=== PATIENT | male | born 1985 | race Two or more races ===

== ENCOUNTER 2024-04-16 14:56 | Inpatient (IN) | payer MEDICAID, SELFPAY ==
[2024-04-16] VITALS (8 sets, daily range): BP systolic 154–168; BP diastolic 85–134; PULSE 111–125; RESP 18–27; TEMP 37.3–37.7; O2SAT 93–100; BMI 39.5
--- NOTE | 2024-04-16 16:04 | XR_ITS ---
Examination: PA lateral chest 2 views Technique: Upright PA lateral chest 2 views Exam date and time: 70,025 1606 hrs. Comparison January 09, 2022 Indications: Shortness breath chest pain 2 weeks ago Findings: Mild heart failure Mild enlargement cardiac contour. Prominent vascular congestion with bilateral posterior pleural effusions of fluid in the fissures on the lateral view Impression: Mild heart failure
--- NOTE | 2024-04-16 16:04 | PD.EDRME ---
Rapid Medical Screening Exam RME Arrival date/time: 04/16/24 14:56 38-year-old male presents emergency department today complaints of abdominal distention generalized fatigue and water retention Chief Complaint: Shortness of Breath/Dyspnea Vital signs: Vital Signs Temperature 99.9 F 04/16/24 15:58 Pulse Rate 118 H 04/16/24 15:58 Respiratory Rate 22 H 04/16/24 15:58 Blood Pressure 154/85 H 04/16/24 15:58 Pulse Oximetry (%) 94 L 04/16/24 15:58 Oxygen Delivery Method Room Air 04/16/24 15:58
[2024-04-16 16:35] LABS: Basophils # (Auto) 0.1 Thou/mm3 (0.0-0.2); Basophils % (Auto) 1 % (0-2.5); Eosinophils # (Auto) 0.1 Thou/mm3 (0.0-0.5); Eosinophils % (Auto) 1 % (0-10); Hemoglobin 10.8 g/dL (13.5-16.0); Immature Granulocytes % (Auto) 1 % (0-0); Immature Granulocytes Auto 0.03 Thou/mm3 (0.00-0.00); Lactate (Lactic Acid) 1.5 mMol/L (0.4-2.0); Lymphocytes # (Auto) 0.9 Thou/mm3 (1.0-4.8); Lymphocytes % (Auto) 14 % (10-50); Mean Corpuscular HGB Conc 31.8 g/dl (31.0-37.0); Mean Corpuscular Hemoglobin 27.4 pg (25.0-35.0); Mean Corpuscular Volume 86 fL (80-100); Monocytes # (Auto) 1.1 Thou/mm3 (0.0-0.8); Monocytes % (Auto) 17 % (0-12); Neutrophils # (Auto) 4.4 Thou/mm3 (1.8-7.7); Neutrophils % (Auto) 66 % (37-80); Nucleated Red Blood Cell % 0 /100 WBC (0); Platelet Count 146 Thou/mm3 (140-440); RDW Standard Deviation 53.1 fL (35.1-43.9); Red Blood Count 3.94 Miln/mm3 (4.50-5.90); White Blood Count 6.6 Thou/mm3 (3.8-10.6)
[2024-04-16 16:50] LABS: INR 1.3 (0.9-1.3); Partial Thromboplastin Time 31.5 Seconds (22.0-36.0); Prothrombin Time 13.9 Seconds (9.0-12.2)
[2024-04-16 16:55] LABS: Ammonia 15 uMol/L (11-32)
[2024-04-16 17:02] LABS: B-Type Natriuretic Peptide 541 pg/mL (0-100)
[2024-04-16 17:06] LABS: Alanine Aminotransferase 10 U/L (10-49); Albumin, Serum 3.7 gm/dL (3.5-5.0); Albumin/Globulin Ratio 0.9 (1.2-2.2); Alkaline Phosphatase 166 U/L (46-116); Anion Gap 11 (7-16); Aspartate Amino Transferase 10 U/L (0-34); BUN/Creatinine Ratio 24 Ratio (12-20); Bilirubin,Total 0.7 mg/dL (0.3-1.2); Blood Urea Nitrogen 98 mg/dL (9-23); Calcium 8.6 mg/dL (8.3-10.6); Calcium (Corrected) 8.8 mg/dL (8.5-10.1); Chloride 109 mMol/L (98-107); Creatinine (Component) 4.1 mg/dL (0.6-1.3); Globulin 3.9 gm/dL (2.3-3.5); Glucose 83 mg/dL (74-106); Lipase 35 U/L (12-53); Magnesium 2.2 mg/dL (1.6-2.6); Osmolality,Calculated 310 (275-295); Potassium 5.6 mMol/L (3.4-5.1); Procalcitonin 0.29 ng/ml (0.0-0.49); Sodium 141 mMol/L (136-145); Total Protein 7.6 gm/dL (5.7-8.2); eGFR 18 See Note
[2024-04-16 17:14] LABS: Troponin I 0.086 ng/mL (0.0-0.045)
--- NOTE | 2024-04-16 17:26 | EKG_ITS ---
[facility] Test Date: 2024-04-16 Pat Name: ALLI MONTANA Department: Room: - Gender: Male Processing Analyst: : 1985 Requested By: Rodney Bridges (SHEILA) Order Number: [id number] Reading MD: Rodney Bridges ([employer]) Measurements Intervals [place] Rate: 119 P: 250 [place]: 231 QRS: -89 QRSD: 113 T: 10 QT: 325 QTc: 458 Interpretive Statements ECTOPIC ATRIAL TACHYCARDIA WITH FIRST DEGREE AV BLOCK LEFT ATRIAL ENLARGEMENT [-0.15mV P-WAVE IN V1/V2] PATTERN CONSISTENT WITH PULMONARY DISEASE INCOMPLETE RIGHT BUNDLE BRANCH BLOCK [90+ ms QRS DURATION, TERMINAL R IN V1/V2, 40+ ms S IN I/aVL/V4/V5/V6] LEFT ANTERIOR FASCICULAR BLOCK [QRS AXIS <= -45, QR IN I, RS IN II] Compared to ECG 01/09/2022 10:08:07 First degree AV block now present Atrial abnormality now present Incomplete right bundle-branch block now present Sinus tachycardia no longer present /store/S0/[id number]/ecg/[id number].pdf
[2024-04-16 17:42] LABS: Hepatitis A Antibody IgM Non Reactive (Non React); Hepatitis B Core Antibody IgM Non Reactive (Non React); Hepatitis B Surface Antigen Non Reactive (Non React); Hepatitis C Antibody Non Reactive (Non React)
--- NOTE | 2024-04-16 18:21 | XR_ITS ---
Examination: CT abdomen and pelvis without contrast. Coronal 3-D reconstructions. Sagittal 2-D reconstructions. Date and time of exam:April 26, 2024 1832 hrs. Indications: Generalized abdominal pain shortness of breath and swelling throughout the body beginning one week ago CTDI: vol (mGy): 40.5 DLP: (mGycm): 1202 Technique: Axial images of the abdomen have been obtained, 3 mm slice thickness Intravenous contrast material has not been administered. Low dose protocols were performed. One or more of the following dose reduction techniques were used; automated exposure control, adjustment of the mA and/or KV according to patient size, use of iterative reconstruction technique. Findings: Heart failure with mild to moderate enlargement cardiac contour, prominent vascular congestion and bilateral pulmonary edema Pericardial effusion measuring up to 14 mm Cirrhosis, liver nodular in contour with significant ascites No splenomegaly Contracted gallbladder No pancreatic or adrenal mass No renal or ureteral calculi, no hydronephrosis Aorta normal size No bowel obstruction Urinary bladder intact Large fluid containing inguinal hernias Mild osteopenia with moderate disc narrowing L4-L5 Impression: Heart failure with pulmonary edema Cirrhosis Significant ascites
--- NOTE | 2024-04-16 18:21 | XR_ITS ---
Examination: Testicular sonography complete Technique: Grayscale sonographic images testes, assessment arterial inflow venous outflow Doppler spectral analysis carful analysis Exam date and time: April 26, 2024 and 0730 hrs. Indications: Scrotal swelling beginning one month ago Findings: Right testis 3.6 cm epididymis 1.6 cm Arterial flow testicle. Large hydrocele Thickening of the scrotal wall 8 mm Left testis 3.9 cm epididymis not visualized Arterial flow testicle No testicular mass Large hydrocele Scrotal wall 2 mm Impression: No testicular torsion or testicular mass Large bilateral hydroceles Scrotal wall edema and thickening bilaterally
--- NOTE | 2024-04-16 18:28 | XR_ITS ---
Examination: AP chest single view Technique one AP portable upright chest single view Exam date and time: 05/17/2024 1840 hrs. Comparison April 16, 2024 1605 hrs. Indications: Onset shortness of breath today Findings: Mild enlargement cardiac contour Moderate vascular congestion. No lobar pneumonia Impression: Moderate vascular congestion
--- NOTE | 2024-04-16 18:32 | PD.EDADULT ---
ED General RME/HPI General Chief complaint: Shortness of Breath/Dyspnea Stated complaint: SOB, SWELLING THROUGHOUT THE BODY, ABD PAIN Time Seen by Provider: 04/16/24 18:27 Arrival date/time: 04/16/24 14:56 RME / HPI RME / HPI narrative: Patient is a 38 years old male with PMH of HTN, DM and CKD presented to the emergency department today complaints of abdominal distention, generalized fatigue, SOB and water retention . He reports he went to [place] and came back Friday and his symptoms started worsening since then. He is followed by nephrology but last visit was 2 years ago. He reports significant abdominal distension. He denies drinking alcohol, smoking tobacco or using illicit drugs. He denies any fever, chills, chest pain, difficulty urinating. He reports his groing started getting swollen and is now very tender. He reports good urine output and no change recently. He had DVT in 2019 and was treated with Eliquis at that time. Related Data Home Medications ?Medication ?Instructions ?Recorded ?Confirmed bumetanide 2 mg tablet 2 mg PO BID 01/09/22 01/09/22 hydralazine 100 mg tablet 100 mg PO TID 01/09/22 01/09/22 Previous Rx's ?Medication ?Instructions ?Recorded bumetanide 2 mg tablet 2 mg PO BID #30 tabs 01/09/22 Allergies Allergy/AdvReac Type Severity Reaction Status Date / Time iron (From Venofer) Allergy Severe Weakness Verified 01/09/22 09:21 Penicillins Allergy Severe SWELLS Verified 01/09/22 09:21 UP,DYSPNEA Review of Systems Review of Systems Systems Reviewed: All systems reviewed, normal except as documented ED Exam Narrative Physical exam: Gen: Well-developed and well-nourished male. HEENT: NCAT, PERRLA, EOMI, MMM, anicteric conjunctivae. CVS: normal S1 and S2. Regular tachycardia. No M/R/G. Resp: CTA B/L. No rhonchi, rales, crackles or wheezing. Abd: soft, tender throughout, severely distended. BS+ in all 4 quadrants. : no CVA tenderness, scrotum is severely distended and erythematose, tender to palpation. MSK: Good ROM in BUE & BLE. Severe swelling BLE, consistent with anasarca. Neuro: CN II-XII grossly intact. Strength 5/5 in BUE & BLE. Alert and oriented x3. Course Quality Measures none Orders Category Date Time Status Bedside COVID-19 Antigen Test NOW Care 04/16/24 18:50 Active Bedside Influenza A&B Antigen Test NOW Care 04/16/24 18:50 Active COVID-19 Screening Questionnaire NOW Care 04/16/24 19:[address] Screening NOW Care 04/16/24 18:39 Active Decision to Admit X1 Care 04/16/24 19:07 Active EKG (ED ONLY) *Do not use* NOW Care 04/16/24 17:26 Completed Starr [Urinary Catheter] QS Care 04/16/24 18:54 Active IV [Insert IV] NOW Care 04/16/24 18:31 Active Straight [In and Out Catheter] X1 Care 04/16/24 18:50 Active Strict Intake and Output Routine Care 04/16/24 18:54 Ordered Consult to Nephrology Stat Cons 04/16/24 18:[address] abdomen pelvis wo con Stat Exams 04/16/24 18:21 Completed CXRP [XR chest 1V portable] Stat Exams 04/16/24 18:28 Completed EKG (ED Only) Stat Exams 04/16/24 17:26 Draft NM VQ scan Stat Exams 04/16/24 18:36 Stop Req US scrotum Stat Exams 04/16/24 18:21 Ordered US venous doppler LE BI Stat Exams 04/16/24 18:34 Ordered XR chest 2V Stat Exams 04/16/24 16:04 Completed ABG [Arterial Blood Gas] Stat Lab 04/16/24 19:09 Completed Ammonia Stat Lab 04/16/24 16:22 Completed B-Type Natriuretic Peptide Stat Lab 04/16/24 16:22 Completed Blood Culture (Lab) Stat Lab 04/16/24 16:22 Received CBC Stat Lab 04/16/24 16:22 Completed Comprehensive Metabolic Panel Stat Lab 04/16/24 16:22 Completed D-Dimer Stat Lab 04/16/24 16:22 Completed Drug Screen,Urine Stat Lab 04/16/24 16:04 Ordered Hepatitis Acute Panel Stat Lab 04/16/24 16:22 Completed Lactic Acid [Lactate (Lactic Acid)] Stat Lab 04/16/24 16:22 Completed Lipase Stat Lab 04/16/24 16:22 Completed Magnesium Stat Lab 04/16/24 16:22 Completed Partial Thromboplastin Time Stat Lab 04/16/24 16:22 Completed Phosphorous Stat Lab 04/16/24 19:30 Ordered Procalcitonin Stat Lab 04/16/24 16:22 Completed Prothrombin Time with INR Stat Lab 04/16/24 16:22 Completed Troponin I Stat Lab 04/16/24 16:22 Completed Urinalysis Stat Lab 04/16/24 16:04 Ordered Furosemide Inj [Lasix Inj] Med 04/16/24 18:51 Discontinued 80 mg IVP X1 ONE Morphine Inj Med 04/16/24 18:51 Discontinued 2 mg IVP X1 ONE Nitroglycerin Oint 2% [Nitro-paste Oint 2%] Med 04/16/24 18:51 Discontinued 2 inch TOP X1 ONE Vital Signs Vital signs: Vital Signs Temperature 99.9 F 04/16/24 15:58 Pulse Rate 118 H 04/16/24 15:58 Respiratory Rate 22 H 04/16/24 15:58 Blood Pressure 154/85 H 04/16/24 15:58 Pulse Oximetry (%) 94 L 04/16/24 15:58 Oxygen Delivery Method Room Air 04/16/24 15:58 Procedures -ED EKG Interpretation Sinus tachycardia with IRBBB: Date of EK04/16/24 Time of EK:28 Rate: 119 Interpretation: Reviewed by me EKG Impression: Bundle branch block and Sinus tachycardia MDM Patient data External records reviewed:: [facility] previous records Clinical information provided by:: patient and family Social determinants that could affect healthcare access:: none Patient has the following chronic illnesses:: HTN, DM and CKD How is presenting disease/condition affected by chronic disease/condition?: exacerbated by Evaluation data The following diagnostics were reviewed and interpreted by me:: lab results, radiology exam(s) and EKG tracing(s) Lab and/or radiology exams considered but not ordered:: CTA Interpretation Summary: Consistent with fluid overload status, anasarca, severe ascitis, pericardial effusion, ARF. Medications Medications considered but not ordered:: Bumex Medication administrations:: Medication Administration History Discontinued Medications Furosemide (Furosemide Inj 10 Mg/Ml 4ml Vial) 80 mg IVP X1 ONE Stop: 04/16/24 18:52 Last Admin: 04/16/24 19:29 Dose: 80 mg Documented By: EE Morphine Sulfate (Morphine Sulf Inj 10 Mg/Ml Vial) 2 mg IVP X1 ONE Stop: 04/16/24 18:52 Last Admin: 04/16/24 19:30 Dose: 2 mg Documented By: MATTHIEU Nitroglycerin (Nitroglycerin Oint 2% 1 Inch Packet) 2 inch TOP X1 ONE Stop: 04/16/24 18:52 Last Admin: 04/16/24 19:28 Dose: 2 inch Documented By: EE Nitroglycerin, morphine, lasix 80 mg. Consultations Consultation(s) initiated? (list below): Yes Consultation #1 (Physician, Specialty, Details): Dr. Teague, nephrology, ARF Diagnosis Differential Diagnosis ED Complaint MDM: ARF, cirrhosis with ascitis, SBP, SBO, PE, DVT Most likely diagnosis given after review of the tests above:: ARF, ascitis Admission Indicated Admission indicated?: indicated Explain why admission is indicated or not indicated:: Patient is severely fluid overloaded and needs to be on IV diuretics. Work up for ARF should be done. He also will benefit from paracentesis. His Wells score for PE moderate risk. Consider PE rule out. BLE Doppler and D-Dimer ordered. Admission Request Was there a request for admission?: Yes Admission Attestation Admission request attestation: Discussed case with Dr. Hatfield from Hospitalist service regarding admission. Discussed patients ED course, exam findings, labs, and radiology results. The Hospitalist agrees to accept the patient for admission. Disposition Plan Disposition Plan: Admit Medical Decision Making Differential Diagnosis Differential Diagnosis: ARF, cirrhosis with ascitis, SBP, SBO, PE, DVT Lab Data 04/16/24 16:22 04/16/24 16:22 Labs: Lab Results 04/16/24 04/16/24 Range/Units 16:22 19:09 WBC 6.6 (3.8-10.6) Thou/mm3 RBC 3.94 L (4.50-5.90) Miln/mm3 Hgb 10.8 L (13.5-16.0) g/dL Hct 34.0 L (41.0-53.0) % MCV 86 (80-100) fL MCH 27.4 (25.0-35.0) pg MCHC 31.8 (31.0-37.0) g/dl RDW Std Deviation 53.1 H (35.1-43.9) fL Plt Count 146 (140-440) Thou/mm3 Neut % (Auto) 66 (37-80) % Lymph % (Auto) 14 (10-50) % [place] % (Auto) 17 H (0-12) % Eos % (Auto) 1 (0-10) % Baso % (Auto) 1 (0-2.5) % Neut # (Auto) 4.4 (1.8-7.7) Thou/mm3 Lymph # (Auto) 0.9 L (1.0-4.8) Thou/mm3 [place] # (Auto) 1.1 H (0.0-0.8) Thou/mm3 Eos # (Auto) 0.1 (0.0-0.5) Thou/mm3 Baso # (Auto) 0.1 (0.0-0.2) Thou/mm3 Immature Gran # (Auto) 0.03 H (0.00-0.00) Thou/mm3 Absolute Nucleated RBC 0.00 (0.00-0.00) Thou/mm3 Immature Gran % 1 H (0-0) % Nucleated RBC % 0 (0) /100 WBC PT 13.9 H (9.0-12.2) Seconds INR 1.3 (0.9-1.3) APTT 31.5 (22.0-36.0) Seconds D-Dimer 2840 H (<600) ng/mL Puncture Site Right Radial ABG pH 7.32 L (7.35-7.45) ABG pCO2 39 (32.0-48.0) mmHg ABG pO2 55 L* (83-108) mmHg ABG HCO3 20 (20-26) mEq/L ABG O2 Saturation 88 L (91-98) % ABG Base Excess -6 L (-3-3) FiO2 21 % Sodium 141 (136-145) mMol/L Potassium 5.6 H (3.4-5.1) mMol/L Chloride 109 H (98-107) mMol/L Carbon Dioxide 21.0 (20.0-31.0) mMol/L Anion Gap 11 (7-16) BUN 98 H (9-23) mg/dL Creatinine 4.1 H* (0.6-1.3) mg/dL Estim Creat Clear Calc 35.0 L (>60) mL/min eGFR 18 L (60 - ) See Note BUN/Creatinine Ratio 24 H (12-20) Ratio Glucose 83 (74-106) mg/dL Calculated Osmolality 310 H (275-295) Lactic Acid 1.5 (0.4-2.0) mMol/L Calcium 8.6 (8.3-10.6) mg/dL Corrected Calcium 8.8 (8.5-10.1) mg/dL Magnesium 2.2 (1.6-2.6) mg/dL Total Bilirubin 0.7 (0.3-1.2) mg/dL AST 10 (0-34) U/L ALT 10 (10-49) U/L Alkaline Phosphatase 166 H (46-116) U/L Ammonia 15 (11-32) uMol/L Troponin I 0.086 H* (0.0-0.045) ng/mL B-Natriuretic Peptide 541 H* (0-100) pg/mL Total Protein 7.6 (5.7-8.2) gm/dL Albumin 3.7 (3.5-5.0) gm/dL Globulin 3.9 H (2.3-3.5) gm/dL Albumin/Globulin Ratio 0.9 L (1.2-2.2) Lipase 35 (12-53) U/L Procalcitonin 0.29 (0.0-0.49) ng/ml Hepatitis A IgM Ab Non Reactive (Non React) Hep Bs Antigen Non Reactive (Non React) Hep B Core IgM Ab Non Reactive (Non React) Hepatitis C Antibody Non Reactive (Non React) Discharge Plan Plan Patient Disposition: Admit Acute Care w/in Hospital Prescriptions/Referrals Prescriptions/Med Rec: No Action bumetanide 2 mg tablet 2 mg PO BID Patient Comments: TAKE 1 TABLET BY MOUTH TWICE A DAY FOR 30 DAYS hydralazine 100 mg tablet 100 mg PO TID Patient Comments: TAKE 1 TABLET BY MOUTH 3 TIMES A DAY bumetanide 2 mg tablet 2 mg PO BID Qty: 30 1RF Referrals: No Primary/Family,Physician [Primary Care Provider] - In 1 week Problem List Clinical Impression: Acute renal failure (ARF), Scrotal edema, Edema of lower extremity, Anasarca associated with disorder of kidney Patient/Caregiver Discharge Instructions Print Language: Hungarian Stand Alone Forms: [facility]rie Award Info., Patient Portal Info Letter
--- NOTE | 2024-04-16 18:34 | XR_ITS ---
Examination: Venous duplex lower extremity sonogram, bilateral. Date and time of exam: April 26, 2024 1938 hrs. Indications: Bilateral lower leg swelling beginning 3 weeks ago Technique: Multiple sonographic images of the deep venous system have been obtained. B-mode/2-D grayscale imaging of vascular structures and Doppler spectral analysis (waveforms) and color performed Both legs are examined. Findings: Deep venous systems do not demonstrate abnormal echogenicity. All visualized deep veins exhibit compressibility. All visualized deep veins exhibit augmentation. Impression: Negative for deep vein thrombosis
--- NOTE | 2024-04-16 18:40 | PC.NURSE ---
PER PT HE HAS HAD SWELLING, NORMALLY TAKES BUMEX FOR IT, HOWEVER IT HAS NOT BEEN WORKING LATELY AND HIS SWELLING IS GETTING WORSE AND HIS DOCTOR TOLD HIM TO COME TO THE ED. ABDOMEN IS EXTENDED, PT TO CT AT THIS TIME, FAMILY AT BEDSIDE ATTENTIVE TO PT, WILL CONTINUE W/POC
[2024-04-16 19:17] LABS: Base Excess -6 (-3-3); HCO3 20 mEq/L (20-26); Inspired Oxygen, FIO2 21 %; O2 Saturation 88 % (91-98); PCO2 39 mmHg (32.0-48.0); pH, Arterial 7.32 (7.35-7.45)
[2024-04-16 19:19] LABS: Allen Test Performed/OK; PO2 55 mmHg (83-108); Puncture Site Right Radial
[2024-04-16 19:23] LABS: D-Dimer 2840 ng/mL (<600)
[2024-04-16] MEDS: NITROGLYCERIN OINT 2% 1 INCH PACKET 2 INCH TOP (19:28)
[2024-04-16] MEDS: FUROSEMIDE INJ 10 MG/ML 4ML VIAL 80 MG IVP (19:29)
[2024-04-16] MEDS: MORPHINE SULF INJ 10 MG/ML VIAL 2 MG IVP (19:30)
[2024-04-16] MEDS: INSULIN HUM REGULAR 1 UNIT/0.01 ML (PER UNIT) 5 UNIT IV (21:41)
[2024-04-16] MEDS: DEXTROSE 50%-WATER INJ 50 ML SYRINGE IV (21:41)
[2024-04-16] MEDS: ALBUTEROL/IPRATROPIUM (Duoneb) RT SOL 3 ML NEBU INH (21:52)
[2024-04-16] MEDS: ALBUMIN HUMAN 25% IVPB 25 GM/100 ML BTL IV (22:17)
[2024-04-16 22:23] LABS: Collection Type, Urine Clean Catch; Squamous Epithelial Cell,Urine 0 /hpf (0-5)
[2024-04-16 22:47] LABS: Bilirubin,Urine Negative (Negative); Blood,Urine Negative (Negative); Clarity,Urine Clear (Clear/Hazy); Color,Urine Lt-Yellow (Lt Yel-Yel); Glucose, Urine Negative (Negative); Hyaline Casts,Urine < 1 /hpf (0-1); Ketones,Urine Negative (Negative); Leukocyte Esterase,Urine Negative (Negative); Nitrite,Urine Negative (Negative); Protein,Urine 1+ (Neg - Trace); RBC,Urine 3 /hpf (0-3); Specific Gravity,Urine 1.011 (1.001-1.035); Urobilinogen,Urine Negative mg/dL (0.0-1.0); WBC,Urine 3 /hpf (0-5)
[2024-04-16 22:49] LABS: Albumin, Serum 3.6 gm/dL (3.5-5.0); Anion Gap 9 (7-16); BUN/Creatinine Ratio 24 Ratio (12-20); Blood Urea Nitrogen 100 mg/dL (9-23); Calcium 8.4 mg/dL (8.3-10.6); Calcium (Corrected) 8.7 mg/dL (8.5-10.1); Carbon Dioxide 21.9 mMol/L (20.0-31.0); Chloride 110 mMol/L (98-107); Creatine Kinase 49 U/L (34-171); Creatinine (Component) 4.2 mg/dL (0.6-1.3); Estimated Creatinine Clearance 34.2 mL/min (>60); Glucose 91 mg/dL (74-106); Osmolality,Calculated 312 (275-295); Phosphorous 5.2 mg/dL (2.4-5.1); Potassium 5.1 mMol/L (3.4-5.1); Sodium 141 mMol/L (136-145); eGFR 18 See Note
[2024-04-16 22:53] LABS: Amphetamine/Methamp Scrn,U Negative (Negative); Barbiturate Screen,Urine Negative (Negative); Benzodiazepines Screen,Urine Negative (Negative); Benzoylecgonine Screen, Ur Negative (Negative); Fentanyl Screen,Urine Negative (Negative); Opiate Screen,Urine Negative (Negative); THC Screen,Urine Negative (Negative)
[2024-04-16 22:53] LABS: Creatinine,Random Urine 64 mg/dL (30-125); Potassium,Urine Random 28 mMol/L (12-62); Sodium,Urine Random 75.8 mMol/L (20.0-110.0)
[2024-04-17] VITALS (13 sets, daily range): BP systolic 116–170; BP diastolic 79–91; PULSE 99–126; RESP 17–92; TEMP 36.3–37.4; O2SAT 92–100; BMI 38.8
[2024-04-17] MEDS: HYDROcodone/APAP 5/325 TABLET 1 TAB PO (00:10)
--- NOTE | 2024-04-17 01:15 | PD.RESHP ---
Documentation for date of: 04/17/24 HPI History of Present Illness History of present illness: Barry is a 38 y/o male with PMHx of Nephrotic syndrome, DVT (Was on Eliquis in 2019), HTN, and morbid obesity who comes for an evaluation of worsening of the scrotum and LE bilat, onset on 04/05. Pt reports that he has had these symptoms before and has been hospitalized for this before about 7 years ago in which he had a lot of fluid build up in his body. He reports that he recently came from a trip on [place] in which she left on April 05 and came back this past Friday on April 11. He says that while he was in [place] he was pretty liberal with his diet, was not drinking a lot fluid, was not drinking any alcohol, however noticed that his swelling began to worsen. Upon coming back home he went to see his primary care on Friday and he was told to go to the ER for further evaluation however he did not because he want to go to work. He says over the past couple of days has been experiencing pain in his legs and scrotum and that is why he came. Denies having any other symptoms of chest pain, however says that he gets short of breath while laying down. He does say he has a headache at this time. He says that he has had the symptoms before. He does not see a kidney doctor, and has been in and out of a primary care doctor. He does not take a blood thinner at this time. Denies having history of diabetes. He has no other complaints at this time. ED course: Patient arrived to the ED with a blood pressure of 164/124, heart rate of 122, temperature of 99.2, respiratory of 27, saturating 97% room air. He was worked up and was found to have a sodium of 141, potassium 5.6, bicarb 21, BUN/creatinine of 98 and 4.1 respectively, glucose 83, white count 6.6, hemoglobin 10.8, troponin 0.062, BNP of 541, Pro-Keen[place] 0.29, ABG pH 7.32, pCO2 39, bicarb 20, D-dimer 2840, lipase 35. CT abdomen pelvis was done which showed cirrhosis, significant ascites and heart failure with edema. He was given nitroglycerin patch, morphine 2 mg x 1, Lasix 80 mg x 1. Medicine was consulted and patient was made to floors. Past medical history: As above Surgical history: None surgeries Meds: Hydralazine, Bumex 2 mg twice daily Allergies: Iron (get swelling and short of breath) and penicillins (weakness) Family history: Family history positive for diabetes, no family history of stroke or kidney disease. Some family history positive for coronary artery disease. Social history: Born and raised in [place]. 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 Has 2 kids, was previously. Has never been a heavy drinker, currently does not drink, no smoking history, no oral or IV drug history. Eats a lot of fast food if his mom does not cook Review of Systems Review of Systems Narrative Review of Systems: Constitutional: No fever, chills, fatigue, weakness, weight loss HEENT: No eye pain, vision loss, ear pain, hearing loss, dysphagia, Cardiovascular: No chest pain, palpitations, edema, pain with walking Respiratory: No cough, shortness of breath, wheezing GI: No NVD, abdominal pain, constipation, blood in stool, loss of appetite, heartburn : + Scrotal swelling Extremities: + leg swelling MSK: No back pain, joint pain, joint swelling Neuro: No dizziness, numbness, weakness, headaches, seizures, tremors Psych: No anxiety, depression Exam Vital Signs Temp Pulse Resp BP Pulse Ox O2 Del Method 99.4 F 111 H 20 160/97 H 99 Room Air 04/16/24 22:18 04/16/24 22:54 04/16/24 22:18 04/16/24 22:18 04/16/24 22:18 04/16/24 22:18 Narrative Exam General: AAOx3, in mild distress, lying down, morbidly obese HEENT: Dry mucous membranes, conjunctiva clear, EOMI, PERRLA, Cardiovascular: S1 and S2, radial pulses +2 bilat, RRR Pulmonary: Difficulty appreciating breath sounds due to body habitus, no cough, no wheezing GI: Ascites present, fluid shift, umbilical hernia present, bowel sounds absent, significant distension Extremities: +3 pitting edema bilat, dorsalis pedis pulses +2 bilaterally : Scrotal erythema, significant scrotal swelling, penile shaft not visible Neuro: AAOx3, no focal motor or sensory deficits in the UE or LE bilat Psych: Good judgement, thought and behavior. Cooperative Results: Labs 04/16/24 16:22 04/16/24 22:22 Labs: Short CBC 04/16/24 Range/Units 16:22 WBC 6.6 (3.8-10.6) Thou/mm3 Hgb 10.8 L (13.5-16.0) g/dL Hct 34.0 L (41.0-53.0) % Plt Count 146 (140-440) Thou/mm3 BMP 04/16/24 04/16/24 16:22 22:22 Sodium 141 141 Potassium 5.6 H 5.1 D Chloride 109 H 110 H Carbon Dioxide 21.0 21.9 BUN 98 H 100 H Creatinine 4.1 H* 4.2 H* Glucose 83 91 Calcium 8.6 8.4 Cardiac Enzymes 04/16/24 04/16/24 Range/Units 16:22 22:22 Total Creatine Kinase 49 (34-171) U/L Troponin I 0.086 H* (0.0-0.045) ng/mL Liver Function 04/16/24 04/16/24 Range/Units 16:22 22:22 Total Bilirubin 0.7 (0.3-1.2) mg/dL AST 10 (0-34) U/L ALT 10 (10-49) U/L Alkaline Phosphatase 166 H (46-116) U/L Albumin 3.7 3.6 (3.5-5.0) gm/dL Urine 04/16/24 Range/Units 21:54 Urine Color Lt-Yellow (Lt Yel-Yel) Urine Clarity Clear (Clear/Hazy) Urine pH 6.0 (5.0-7.0) Ur Specific [place] 1.011 (1.001-1.035) Urine Protein 1+ A (Neg - Trace) Urine Glucose (UA) Negative (Negative) ABG Interpretation ABG results: 04/16/24 19:09 ABG pH 7.32 L ABG pCO2 39 ABG pO2 55 L* ABG HCO3 20 ABG O2 Saturation 88 L ABG Base Excess -6 L Quality Measures Quality Measures none Medications Home Medications and Allergies Home Medications ?Medication ?Instructions ?Recorded ?Confirmed ?Type bumetanide 2 mg tablet 2 mg PO BID 01/09/22 04/17/24 History hydralazine 100 mg tablet 100 mg PO TID 01/09/22 04/17/24 History Allergies Allergy/AdvReac Type Severity Reaction Status Date / Time iron (From Venofer) Allergy Severe Weakness Verified 01/09/22 09:21 Penicillins Allergy Severe SWELLS Verified 01/09/22 09:21 UP,DYSPNEA Visit Medications Acetaminophen (Acetaminophen 325 Mg Tablet) 650 mg PO Q6H PRN PRN Reason: Fever >100 or pain 1-3 Stop: 05/16/24 21:29 Hydrocodone Bitart/Acetaminophen (Hydrocodone/Apap 5/325 Tablet) 1 tab PO Q4HR PRN PRN Reason: Pain 4-6 Stop: 04/22/24 00:00 Last Admin: 04/17/24 00:10 Dose: 1 tab Albuterol/Ipratropium (Albuterol/Ipratropium (Duoneb) Rt Carol 3 Ml Nebu) 3 ml INH Q6HRRT PRN PRN Reason: sob Stop: 05/17/24 00:59 Dextrose (Dextrose 50%-Water Inj 50 Ml Syringe) 25 ml IV Q15MIN PRN PRN Reason: BG 50-70 responsive npo pt Stop: 05/16/24 20:02 Dextrose (Dextrose 50%-Water Inj 50 Ml Syringe) 50 ml IV Q15MIN PRN PRN Reason: BG <50 OR BG <70 & pt unresponsive Stop: 05/16/24 20:02 Glucagon (Glucagon Inj 1 Mg Vial) 1 mg IM Q15MIN PRN PRN Reason: BG <70, and no IV access Heparin Sodium (Porcine) (Heparin Sod Inj 5000 Unit/Ml Vial) 5,000 unit SC Q12HR [facility] Stop: 05/01/24 08:59 Albumin Human (Albuminar-25 Ivpb) 25 gm in 100 mls @ 100 mls/hr IV QID [facility] Stop: 04/19/24 21:44 Last Admin: 04/16/24 22:17 Dose: 100 mls/hr Ondansetron HCl (Ondansetron Inj 2 Mg/Ml Inj 2 Ml) 4 mg IV Q6H PRN; Protocol PRN Reason: NAUSEA OR VOMITING Stop: 05/16/24 21:29 Pantoprazole Sodium (Pantoprazole 40 Mg Tablet) 40 mg PO QDAY [facility] Stop: 05/17/24 08:59 Discontinued Medications Albuterol/Ipratropium (Albuterol/Ipratropium (Duoneb) Rt Carol 3 Ml Nebu) 3 ml INH X1 ONE Stop: 04/16/24 21:30 Last Admin: 04/16/24 21:52 Dose: 3 ml Dextrose (Dextrose 50%-Water Inj 50 Ml Syringe) 50 ml IV X1 ONE Stop: 04/16/24 21:30 Last Admin: 04/16/24 21:41 Dose: 50 ml Furosemide (Furosemide Inj 10 Mg/Ml 4ml Vial) 80 mg IVP X1 ONE Stop: 04/16/24 18:52 Last Admin: 04/16/24 19:29 Dose: 80 mg Dextrose (D10w 1000 Ml) 1,000 mls @ 100 mls/hr IV .Q10H [place] Stop: 04/17/24 06:14 Last Admin: 04/16/24 21:34 Dose: Not Given Insulin Human Regular (Insulin Hum Regular 1 Unit/0.01 Ml (Per Unit)) 5 unit IV X1 ONE Stop: 04/16/24 20:04 Last Admin: 04/16/24 21:41 Dose: 5 unit Morphine Sulfate (Morphine Sulf Inj 10 Mg/Ml Vial) 2 mg IVP X1 ONE Stop: 04/16/24 18:52 Last Admin: 04/16/24 19:30 Dose: 2 mg Nitroglycerin (Nitroglycerin Oint 2% 1 Inch Packet) 2 inch TOP X1 ONE Stop: 04/16/24 18:52 Last Admin: 04/16/24 19:28 Dose: 2 inch Assessment & Plan Plan Assessment Barry is a 38 y/o male with PMHx of Nephrotic syndrome, DVT (Was on Eliquis in 2019), HTN, and morbid obesity who is admitted for acute renal failure. #Acute renal failure #History of nephrotic syndrome Patient's creatinine seems to be 1.4 on baseline, however creatinine today 4.1 Patient has been having poor oral intake Could be a component of possible hepatorenal syndrome type I Will need to see if patient is intravascularly depleted with extracellular shifting We will do this with albumin to see if patient responds; albumin unremarkable at this time Was given 80 mg Lasix in ED Pt appears to be intravascularly dry Plan: ? Nephrology consulted, appreciate recs ? Urine lytes and creatinine ? Avoid nephrotoxic agents ? Renally dose medicines ? Albumin 25 g 4 times daily IV ? Trend electrolytes including magnesium and phosphorus ? Strict I's and O's ? Starr #Ascites #? Cirrhosis #Hydrocele, bilat Patient is significantly distended With no previous imaging of cirrhosis CT abdomen pelvis showed cirrhosis on liver There could be component of POWER contributing to cirrhosis at this time This could be also decompensated liver failure causing ascites No history of portal hypertension Hepatitis Panel negative Albumin level is unremarkable US shows bilat hydrocele Plan: ? Consider ultrasound-guided paracentesis ? Consider GI consult ? Continue with albumin 25 g 4 times daily IV #Electrolyte abnormalities #Hyperkalemia Patient appears to be intravascularly depleted, however patient is having extracellular shift and has ascites and significant lower extremity edema Patient has multiple reasons to have ascites and lower extremity edema including nephrotic syndrome and possible cirrhosis Osmolarity 312 Plan: ? Monitor with CMP ? 5 units of insulin, recheck potassium ? DuoNeb x 1 #History of DVT Not on any blood thinners at this time D-dimer around 3000 DVT lower extremity negative #History of pericardial effusion Seen on echo in [address] imaging shows 14 mm pericardial effusion Plan: ? Consider echo #History of hypertension #? CHF #History of morbid obesity Imaging shows heart failure with pulmonary edema Plan: ? Avoiding resuming any ACEs or ARB's ? Consider echo #Health Maintenance Disposition: Telemetry DVT prophylaxis: Heparin GI prophylaxis: Protonix Diet: Renal CODE STATUS: Full Patient seen and care discussed with my attending physician, Dr. Aureliano Hatfield, PGY-1 Attending Provider Attestation/Addendum 38-year-old male with previous diagnosis of hypertension, nephrotic syndrome and DVT status post Eliquis treatment and nonalcoholic metabolic liver dysfunction who presented with generalized weakness found to have acute kidney injury with initial creatinine of 4.1. Patient has been having decreased p.o. intake and likely worsening kidney function could be prerenal. In the ER he was given Lasix 80 mg IV and plan to give albumin. Consulted nephrology and recommended admission. Patient does not have any indication for emergent hemodialysis and will monitor closely. Furthermore, CT noted possible pulmonary edema however likely related to fluid overload state from his kidney injury and also noted 14 mm pericardial effusion for which plan is to obtain an echocardiogram.I reviewed above note and agree with findings and plans. I have also personally examined the patient with medicine team and went over assessment and plan with medical team including administrative intern and resident physician.
[2024-04-17] MEDS: ALBUMIN HUMAN 25% IVPB 25 GM/100 ML BTL IV ×5 (05:23→20:58)
[2024-04-17 05:50] LABS: Basophils % (Auto) 0 % (0-2.5); Eosinophils % (Auto) 1 % (0-10); Hematocrit 30.6 % (41.0-53.0); Hemoglobin 9.7 g/dL (13.5-16.0); Immature Granulocytes % (Auto) 0 % (0-0); Immature Granulocytes Auto 0.02 Thou/mm3 (0.00-0.00); Lymphocytes # (Auto) 0.7 Thou/mm3 (1.0-4.8); Lymphocytes % (Auto) 12 % (10-50); Mean Corpuscular HGB Conc 31.7 g/dl (31.0-37.0); Mean Corpuscular Hemoglobin 27.5 pg (25.0-35.0); Mean Corpuscular Volume 87 fL (80-100); Monocytes % (Auto) 17 % (0-12); Neutrophils # (Auto) 3.8 Thou/mm3 (1.8-7.7); Neutrophils % (Auto) 70 % (37-80); Nucleated Red Blood Cell % 0 /100 WBC (0); Platelet Count 116 Thou/mm3 (140-440); RDW Standard Deviation 52.4 fL (35.1-43.9); Red Blood Count 3.53 Miln/mm3 (4.50-5.90); White Blood Count 5.5 Thou/mm3 (3.8-10.6)
[2024-04-17 06:03] LABS: INR 1.3 (0.9-1.3); Partial Thromboplastin Time 31.9 Seconds (22.0-36.0); Prothrombin Time 13.7 Seconds (9.0-12.2)
[2024-04-17] MEDS: FUROSEMIDE INJ 10 MG/ML 4ML VIAL 80 MG IVP (06:20)
[2024-04-17 06:56] LABS: Alanine Aminotransferase < 7 U/L (10-49); Albumin, Serum 3.6 gm/dL (3.5-5.0); Albumin/Globulin Ratio 1.1 (1.2-2.2); Alkaline Phosphatase 144 U/L (46-116); Anion Gap 8 (7-16); Aspartate Amino Transferase 21 U/L (0-34); BUN/Creatinine Ratio 24 Ratio (12-20); Bilirubin,Total 0.5 mg/dL (0.3-1.2); Calcium 8.4 mg/dL (8.3-10.6); Calcium (Corrected) 8.7 mg/dL (8.5-10.1); Carbon Dioxide 22.2 mMol/L (20.0-31.0); Cardiac Risk Estimate 4.1 RATIO (4.0-6.7); Chloride 110 mMol/L (98-107); Cholesterol 106 mg/dL (132-200); Creatinine (Component) 4.3 mg/dL (0.6-1.3); Estimated Creatinine Clearance 33.1 mL/min (>60); Globulin 3.4 gm/dL (2.3-3.5); Glucose 78 mg/dL (74-106); HDL Cholesterol 26 mg/dL (40-60); LDL Cholesterol,Calculated 62 mg/dL (0-130); Magnesium 2.2 mg/dL (1.6-2.6); Osmolality,Calculated 310 (275-295); Phosphorous 6.1 mg/dL (2.4-5.1); Potassium 5.4 mMol/L (3.4-5.1); Sodium 140 mMol/L (136-145); Thyroid Stimulating Hormone 3.96 uIU/mL (0.55-4.78); Triglycerides 89 mg/dL (30-150); eGFR 17 See Note
[2024-04-17 07:01] LABS: Blood Urea Nitrogen 102 mg/dL (9-23)
[2024-04-17 07:03] LABS: Troponin I 0.093 ng/mL (0.0-0.045)
[2024-04-17] MEDS: ALBUTEROL/IPRATROPIUM (Duoneb) RT SOL 3 ML NEBU INH ×2 (08:38→16:22)
[2024-04-17] MEDS: SEVELAMER CARBONATE 800 MG TABLET PO ×3 (08:41→17:35)
[2024-04-17] MEDS: ONDANSETRON INJ 2 MG/ML INJ 2 ML 4 MG IV (08:41)
[2024-04-17] MEDS: PANTOPRAZOLE 40 MG TABLET PO (08:41)
[2024-04-17] MEDS: CIPROFLOXACIN/D5w 400 MG IVPB 400 MG/200 ML BAG 200 MG IV (08:41)
[2024-04-17 09:28] LABS: LDH (Lactate Dehydrogenase) 132 U/L (120-246); Potassium 5.2 mMol/L (3.4-5.1)
[2024-04-17 10:27] LABS: Creatinine,Random Urine 148 mg/dL (30-125); Sodium,Urine Random 46.8 mMol/L (20.0-110.0)
[2024-04-17] MEDS: OSELTAMIVIR 75 MG CAPSULE PO (11:41)
--- NOTE | 2024-04-17 15:31 | ESPR_ITS ---
Documentation for date of: 04/17/24 Subjective Subjective Interval history: Patient was seen and examined at the bedside. This morning patient reported that he has been having lower extremity swelling and abdominal discomfort along with distention of the abdomen with scrotal swelling as well from last 3 months. He was diagnosed with nephrotic syndrome x 7 years ago and he lost follow-up with production tool engineer, Dr Teague 3 years ago. Patient's mother was also present at the bedside. He stated that he is still able to pee and make urine however has difficulty in passing bowel movements from last couple of days. He was also having abdominal discomfort. He also was complaining of lower extremity tenderness. Morning vitals showed elevated blood pressure, tachycardia and tachypnea. Patient was afebrile and saturating well on 3 L NC. Labs showed stable white count and hemoglobin 9.7. Thrombocytopenia. CHEM panel showed hypokalemia and breathing treatment was given x 2. Azotemia with BUN 102 and creatinine 4.3 with GFR 17. Phosphorus 6.1. Troponin I was elevated 0.093. Your electrolytes showed normal electrolytes. Urine random creatinine was 148. ICU team was consulted for paracentesis and they removed 11 L. Patient was given 50 g of albumin post paracentesis. Patient received 25 g in the morning. Will continue additional 25 g for the night. Patient also received Lasix 80 mg in the morning and evening dose of Lasix was held due to concern for hypotension. Patient is allergic to penicillin therefore was switched to p.o. ciprofloxacin. Strict SUKH's, fluid restriction and nephrology will follow the case. If patient became hypotensive consider adding midodrine or octreotide. Will follow with the blood cultures. Scrotal ultrasound showed bilateral hydroceles. Sevelamer was given for hyperphosphatemia. Hypoglycemia protocol for low blood sugars. Will repeat a troponin I for morning. All labs and orders were reviewed. Exam Vital Signs Temp Pulse Resp BP Pulse Ox O2 Del Method O2 Flow Rate 97.4 F 111 H 25 H 132/79 H 99 Nasal Cannula 3 04/17/24 12:00 04/17/24 12:00 04/17/24 12:00 04/17/24 12:00 04/17/24 12:00 04/17/24 12:00 04/17/24 12:00 Narrative Exam GENERAL APPEARANCE: AxOx4, obese male in mild distress due to breathing difficulty. Saturating well on 3 L NC. HEENT: NC, AT. MMM. EOMI, clear conjunctiva, oropharynx clear. NECK: Supple without lymphadenopathy. No stiffness or restricted ROM. HEART: Sinus tachycardia with regular rhythm, normal S1/S2, no m/r/g LUNGS: CTAB, moving air well. Mild wheezing heard on right side. Decreased breath sounds on left side. ABDOMEN: Soft, markedly distended with fluid thrill and increased abdominal girth. Shifting dullness positive. BACK: No CVAT, no obvious deformity. EXTREMITIES: Anasarca with 3+ pitting edema up to thighs NEUROLOGICAL: Grossly nonfocal. Alert and oriented, moving all 4 extremities. CN not formally tested but appear grossly intact. Observed to ambulate with normal gait. exam: Scrotal swelling seen. Skin: Chronic venous stasis Psych: Appropriate mood and affect Objective Labs 04/18/24 05:44 04/18/24 05:44 Labs: Laboratory Results - last 24 hr 04/16/24 04/16/24 04/16/24 16:22 19:09 21:50 WBC 6.6 RBC 3.94 L Hgb 10.8 L Hct 34.0 L MCV 86 MCH 27.4 MCHC 31.8 RDW Std Deviation 53.1 H Plt Count 146 Neut % (Auto) 66 Lymph % (Auto) 14 [place] % (Auto) 17 H Eos % (Auto) 1 Baso % (Auto) 1 Neut # (Auto) 4.4 Lymph # (Auto) 0.9 L [place] # (Auto) 1.1 H Eos # (Auto) 0.1 Baso # (Auto) 0.1 Immature Gran # (Auto) 0.03 H Absolute Nucleated RBC 0.00 Immature Gran % 1 H Nucleated RBC % 0 PT 13.9 H INR 1.3 APTT 31.5 D-Dimer 2840 H Puncture Site Right Radial ABG pH 7.32 L ABG pCO2 39 ABG pO2 55 L* ABG HCO3 20 ABG O2 Saturation 88 L ABG Base Excess -6 L FiO2 21 Sodium 141 Potassium 5.6 H Chloride 109 H Carbon Dioxide 21.0 Anion Gap 11 BUN 98 H Creatinine 4.1 H* Estim Creat Clear Calc 35.0 L eGFR 18 L BUN/Creatinine Ratio [address] Glucose [address] Glu mg/dL Hemoglobin A1c Calculated Osmolality 310 H Lactic Acid 1.5 Calcium 8.6 Corrected Calcium 8.8 Phosphorus Magnesium 2.2 Total Bilirubin 0.7 AST 10 ALT 10 Alkaline Phosphatase 166 H Ammonia 15 Lactate Dehydrogenase Total Creatine Kinase Troponin I 0.086 H* B-Natriuretic Peptide 541 H* Total Protein 7.6 Albumin 3.7 Globulin 3.9 H Albumin/Globulin Ratio 0.9 L Triglycerides Cholesterol LDL Cholesterol, Calc HDL Cholesterol Cholesterol/HDL Ratio Lipase 35 Procalcitonin 0.29 TSH Ur Collection Type Urine Color Urine Clarity Urine pH Ur Specific [place] Urine Protein Urine Glucose (UA) Urine Ketones Urine Blood Urine Nitrite Urine Bilirubin Urine Urobilinogen (Auto) Ur Leukocyte Esterase Urine RBC Urine WBC Ur Squamous Epith Cells Urine Bacteria Hyaline Casts Ur Random Creatinine Ur Random Sodium Ur Random Potassium Ur Random Chloride Urine Opiates Screen Negative Urine Fentanyl Screen Negative Ur Barbiturates Screen Negative U Amphetamin/Meth Scrn Negative U Benzodiazepines Scrn Negative U Cocaine Metab Screen Negative U Marijuana (THC) Screen Negative Hepatitis A IgM Ab Non Reactive Hep Bs Antigen Non Reactive Hep B Core IgM Ab Non Reactive Hepatitis C Antibody Non Reactive 04/16/24 04/16/24 04/17/24 21:54 22:22 04:51 WBC 5.5 RBC 3.53 L Hgb 9.7 L Hct 30.6 L MCV 87 MCH 27.5 MCHC 31.7 RDW Std Deviation 52.4 H Plt Count 116 L D Neut % (Auto) 70 Lymph % (Auto) 12 [place] % (Auto) 17 H Eos % (Auto) 1 Baso % (Auto) 0 Neut # (Auto) 3.8 Lymph # (Auto) 0.7 L [place] # (Auto) 1.0 H Eos # (Auto) 0.0 Baso # (Auto) 0.0 Immature Gran # (Auto) 0.02 H Absolute Nucleated RBC 0.00 Immature Gran % 0 Nucleated RBC % 0 PT 13.7 H INR 1.3 APTT 31.9 D-Dimer Puncture Site ABG pH ABG pCO2 ABG pO2 ABG HCO3 ABG O2 Saturation ABG Base Excess FiO2 Sodium 141 140 Potassium 5.1 D 5.4 H Chloride 110 H 110 H Carbon Dioxide 21.9 22.2 Anion Gap 9 8 BUN 100 H 102 H* Creatinine 4.2 H* 4.3 H* Estim Creat Clear Calc 34.2 L 33.1 L eGFR 18 L 17 L BUN/Creatinine Ratio 24 H 24 H Glucose [address] Glu mg/dL Cancelled Hemoglobin A1c Cancelled Calculated Osmolality 312 H 310 H Lactic Acid Calcium 8.4 8.4 Corrected Calcium 8.7 8.7 Phosphorus 5.2 H 6.1 H Magnesium 2.2 Total Bilirubin 0.5 AST 21 ALT < 7 L Alkaline Phosphatase 144 H D Ammonia Lactate Dehydrogenase Total Creatine Kinase 49 Troponin I 0.093 H* B-Natriuretic Peptide Total Protein 7.0 Albumin 3.6 3.6 Globulin 3.4 Albumin/Globulin Ratio 1.1 L Triglycerides 89 Cholesterol 106 L LDL Cholesterol, Calc 62 HDL Cholesterol 26 L Cholesterol/HDL Ratio 4.1 Lipase Procalcitonin TSH 3.96 Ur Collection Type Clean Catch Urine Color Lt-Yellow Urine Clarity Clear Urine pH 6.0 Ur Specific [place] 1.011 Urine Protein 1+ A Urine Glucose (UA) Negative Urine Ketones Negative Urine Blood Negative Urine Nitrite Negative Urine Bilirubin Negative Urine Urobilinogen (Auto) Negative Ur Leukocyte Esterase Negative Urine RBC 3 Urine WBC 3 Ur Squamous Epith Cells 0 Urine Bacteria None Hyaline Casts < 1 Ur Random Creatinine 64 Ur Random Sodium 75.8 Ur Random Potassium 28 Ur Random Chloride 81.0 Urine Opiates Screen Urine Fentanyl Screen Ur Barbiturates Screen U Amphetamin/Meth Scrn U Benzodiazepines Scrn U Cocaine Metab Screen U Marijuana (THC) Screen Hepatitis A IgM Ab Hep Bs Antigen Hep B Core IgM Ab Hepatitis C Antibody 04/17/24 04/17/24 08:45 08:52 WBC RBC Hgb Hct MCV MCH MCHC RDW Std Deviation Plt Count Neut % (Auto) Lymph % (Auto) [place] % (Auto) Eos % (Auto) Baso % (Auto) Neut # (Auto) Lymph # (Auto) [place] # (Auto) Eos # (Auto) Baso # (Auto) Immature Gran # (Auto) Absolute Nucleated RBC Immature Gran % Nucleated RBC % PT INR APTT D-Dimer Puncture Site ABG pH ABG pCO2 ABG pO2 ABG HCO3 ABG O2 Saturation ABG Base Excess FiO2 Sodium Potassium 5.2 H Chloride Carbon Dioxide Anion Gap BUN Creatinine Estim Creat Clear Calc eGFR BUN/Creatinine Ratio Glucose Estimated Ave Glu mg/dL Hemoglobin A1c Calculated Osmolality Lactic Acid Calcium Corrected Calcium Phosphorus Magnesium Total Bilirubin AST ALT Alkaline Phosphatase Ammonia Lactate Dehydrogenase 132 Total Creatine Kinase Troponin I B-Natriuretic Peptide Total Protein Albumin Globulin Albumin/Globulin Ratio Triglycerides Cholesterol LDL Cholesterol, Calc HDL Cholesterol Cholesterol/HDL Ratio Lipase Procalcitonin TSH Ur Collection Type Urine Color Urine Clarity Urine pH Ur Specific [place] Urine Protein Urine Glucose (UA) Urine Ketones Urine Blood Urine Nitrite Urine Bilirubin Urine Urobilinogen (Auto) Ur Leukocyte Esterase Urine RBC Urine WBC Ur Squamous Epith Cells Urine Bacteria Hyaline Casts Ur Random Creatinine 148 H Ur Random Sodium 46.8 Ur Random Potassium Ur Random Chloride Urine Opiates Screen Urine Fentanyl Screen Ur Barbiturates Screen U Amphetamin/Meth Scrn U Benzodiazepines Scrn U Cocaine Metab Screen U Marijuana (THC) Screen Hepatitis A IgM Ab Hep Bs Antigen Hep B Core IgM Ab Hepatitis C Antibody ABG Interpretation ABG results: 04/16/24 19:09 ABG pH 7.32 L ABG pCO2 39 ABG pO2 55 L* ABG HCO3 20 ABG O2 Saturation 88 L ABG Base Excess -6 L Quality Measures Quality Measures VTE prophylaxis (Heparin on hold) Assessment & Plan Assessment Current Active Medications: Generic Name Dose Route Start Last Admin Trade Name Freq PRN Reason Stop Dose Admin Acetaminophen 650 mg 04/16/24 21:30 Acetaminophen 325 Mg Tablet PO 05/16/24 21:29 Q6H PRN Fever >100 or pain 1-3 Hydrocodone Bitart/Acetaminophen 1 tab 04/17/24 00:00 04/17/24 00:10 Hydrocodone/Apap 5/325 Tablet PO 04/22/24 00:00 1 tab Q4HR PRN Administration Pain 4-6 Albuterol/Ipratropium 3 ml 04/16/24 21:30 Albuterol/Ipratropium (Duoneb) Rt Carol 3 Ml Nebu INH 05/17/24 00:59 Q6HRRT PRN sob Ciprofloxacin 500 mg 04/18/24 09:00 Ciprofloxacin Hcl 250 Mg Tablet PO 04/25/24 08:59 QDAY [place] Dextrose 25 ml 04/17/24 07:57 Dextrose 50%-Water Inj 50 Ml Syringe IV 05/17/24 07:56 Q15MIN PRN BG 50-70 responsive npo pt Dextrose 50 ml 04/17/24 07:57 Dextrose 50%-Water Inj 50 Ml Syringe IV 05/17/24 07:56 Q15MIN PRN BG <50 OR BG <70 & pt unresponsive Furosemide 80 mg 04/17/24 06:00 04/17/24 06:20 Furosemide Inj 10 Mg/Ml 4ml Vial IVP 05/17/24 05:59 80 mg BIDD [place] Administration Glucagon 1 mg 04/17/24 07:57 Glucagon Inj 1 Mg Vial IM Q15MIN PRN BG <70, and no IV access Heparin Sodium (Porcine) 5,000 unit 04/17/24 09:00 Heparin Sod Inj 5000 Unit/Ml Vial SC 05/01/24 08:59 Q12HR [place] Albumin Human 25 gm in 100 mls @ 100 mls/hr 04/16/24 21:45 04/17/24 13:55 Albuminar-25 Ivpb IV 04/19/24 21:44 Infused QID [place] Infusion Ondansetron HCl 4 mg 04/16/24 21:30 04/17/24 08:41 Ondansetron Inj 2 Mg/Ml Inj 2 Ml IV 05/16/24 21:29 4 mg Q6H PRN Administration NAUSEA OR VOMITING Protocol Oseltamivir Phosphate 30 mg 04/17/24 21:00 Oseltamivir 30 Mg Capsule PO 04/21/24 21:01 BID [place] Pantoprazole Sodium 40 mg 04/17/24 09:00 04/17/24 08:41 Pantoprazole 40 Mg Tablet PO 05/17/24 08:59 40 mg QDAY [place] Administration Sennosides 1 tab 04/17/24 08:15 Senna Tablet PO 05/17/24 08:14 QDAY PRN CONSTIPATION Protocol Sevelamer Carbonate 800 mg 04/17/24 08:00 04/17/24 11:41 Sevelamer Carbonate 800 Mg Tablet PO 05/17/24 07:59 800 mg TIDWM [place] Administration Plan This is a 38 y/o male with PMHx of Nephrotic syndrome, DVT (Was on Eliquis in 2019), HTN, and morbid obesity who is admitted for acute renal failure. Status post large-volume paracentesis. #Post large-volume paracentesis due to ascites # Generalized anasarca #Decompensated liver cirrhosis #Hydrocele, bilat ?Patient presented with generalized swelling noticeable on abdomen, lower extremity and scrotum. Patient is known case of nephrotic syndrome diagnosed 7 years ago. Last follow-up with production tool engineer. CT abdomen pelvis showed cirrhosis on liver There could be component of POWER contributing to cirrhosis at this time This could be also decompensated liver failure causing ascites No history of portal hypertension Hepatitis Panel negative Albumin level is unremarkable US scrotum shows bilat hydrocele Plan: ? Can consider midodrine or octreotide if patient becomes hypotensive ? Paracentesis was performed today removing 11 L. Patient received 50 g albumin immediately after paracentesis. ? Albumin 75 g in total given on 04/17 ? Continue with albumin 25 g 4 times daily IV ? Monitor LFTs ? IV Lasix 80 twice daily was started per nephrology recommendation ? Holding Lasix 80 mg evening dose given concern for hypotension after large- volume paracentesis #Acute renal failure with prerenal azotemia #History of nephrotic syndrome Patient's creatinine seems to be 1.4 on baseline, however creatinine today 4.1 Patient has been having poor oral intake Could be a component of possible hepatorenal syndrome type I Will need to see if patient is intravascularly depleted with extracellular shifting We will do this with albumin to see if patient responds; albumin unremarkable at this time Was given 80 mg Lasix in ED Pt appears to be intravascularly dry ? BUN was 102 and creatinine was 4.3 with baseline CR 2.0 FROM 2021 Plan: ? Nephrology recommended to continue strict SUKH's, fluid restriction and Lasix challenge was given ? Patient is still able to make urine so we will hold off on dialysis for now ? 75 g albumin given today post paracentesis ? Started ciprofloxacin p.o. 500 mg once daily renally dose for SBP prophylaxis ? Nephrology consulted, appreciate recs ? Urine electrolytes were unremarkable and urine creatinine was elevated ? Avoid nephrotoxic agents ? Renally dose medicines ? Albumin 25 g 4 times daily IV ? Trend electrolytes including magnesium and phosphorus ? Strict I's and O's ? Starr catheter in place ? Follow-up on peritoneal fluid with culture and sensitivity and peritoneal cytology was also sent #Acute hypoxic respiratory failure ? Likely due to influenza pneumonia/flu ? Patient presented with shortness of breath and cough found to be influenza positive ? Patient was saturating well on 2 L NC Plan: ? Started on Tamiflu 30 mg twice daily renally dose ? Oxygen as needed ? Wean off oxygen as needed ?DuoNebs #Normocytic anemia ? Hemoglobin 9.7, hematocrit 30 Plan ? Follow-up on iron panel and ferritin ?PRBC if hemoglobin drops below 7 ? Follow-up on CBC #Electrolyte abnormalities #Hyperkalemia #Hyperphosphatemia Patient appears to be intravascularly depleted, however patient is having extracellular shift and has ascites and significant lower extremity edema Patient has multiple reasons to have ascites and lower extremity edema including nephrotic syndrome and possible cirrhosis Osmolarity 312 Plan: ? Breathing treatment given x 2 ? Potassium was rechecked around 5.2 ? Sevelamer started for hyperphosphatemia ?Continue monitor electrolytes #History of pericardial effusion #History of CHF? Seen on echo in [address] imaging shows 14 mm pericardial effusion Plan: ? Will follow-up on echocardiogram #History of DVT Not on any blood thinners at this time D-dimer around 3000 DVT lower extremity negative #Hypertensive emergency #History of hypertension #History of morbid obesity Imaging shows heart failure with pulmonary edema ?Initially patient presented with elevated blood pressure with troponin I elevation as well ? Troponin I was 0.093 Plan: ? Trend troponin I every 6 hourly ? Patient takes hydralazine 100 mg 3 times daily currently on hold due to concern for hypotension after paracentesis ? Hold off on ISABELA and ARB's ? Will follow on echo #Health Maintenance Disposition: Telemetry DVT prophylaxis: Heparin was held today for paracentesis GI prophylaxis: Protonix Diet: Renal CODE STATUS: Full Patient was seen and discussed with attending physician, Dr. Nelida Robin MD, PGY 2 Attending Provider Attestation/Addendum I have discussed and was present for the essential components of the history, physical examination, diagnosis, and treatment plan with the resident. I agree with the patient's care as documented by the resident and amended herein by me. Anirudh Krause DO. Although this document has been carefully reviewed, there may still be some phonetic and other typographical errors. These errors are purely grammatical due to imperfections in the software program and should not be construed in any way to compromise the substance of the patient's medical care during this visit.
[2024-04-17 17:36] LABS: Peritoneal Fluid WBC 81 /cmm
[2024-04-17 17:39] LABS: Peritoneal Fluid Appearance Hazy; Peritoneal Fluid Color Yellow; RBC,Peritoneal Fluid 1000 /cmm
[2024-04-17 17:52] LABS: Albumin, Peritoneal Fluid 2.2 gm/dL; Amylase,Peritoneal Fluid 24 IU/L; Glucose,Peritoneal Fluid 84 mg/dL; LDH,Peritoneal Fluid 97 IU/L; Protein Total,Peritoneal Fluid 4 g/dL
--- NOTE | 2024-04-17 17:54 | PD.RESPROC ---
Procedures Procedure Date / Time 04/17/24 8644 Procedure Narrative Procedure Narrative: Attending Attestation: I was present for entire procedure. Patient tolerated procedure well with no immediate complications. Minimal blood loss. Paracentesis Indication: Ascites Informed consent obtained: from patient Time out done, and the following verified: correct patient, side and site, procedure, patient position and implants and/or equipment Procedure: therapeutic paracentesis (and diagnostic) Location: RLQ Local anesthetic used: lidocaine 1% Bedside ultrasound used: yes, Ascites confirmed and location marked Preparation: sterile prep and drape Amount of fluid obtained (mL): 11,000 Fluid: clear Post procedure exam: awake, alert, normal BP, normal HR and normal SpO2 Patient tolerated procedure: well Complications: none
[2024-04-17] MEDS: PANTOPRAZOLE INJ 40 MG VIAL IV (18:12)
[2024-04-17] MEDS: MG HYD/AL HYD/SIME (Maalox Reg) SUSP 30 ML UDC PO (18:12)
[2024-04-17 19:31] LABS: Troponin I 0.091 ng/mL (0.0-0.045)
[2024-04-17] MEDS: OSELTAMIVIR 30 MG CAPSULE PO (21:15)
--- NOTE | 2024-04-17 23:59 | ESCONSULT_ITS ---
RE: ALLI MONTANA : 1985 DATE OF CONSULTATION: 04/17/2024 REASON FOR REFERRAL: Acute kidney injury on chronic kidney disease. REFERRING PHYSICIAN: HISTORY OF PRESENT ILLNESS: This patient is a 38-year-old -Swiss gentleman with past medical history significant for type 2 diabetes since he was 24 years old with nephrotic syndrome, proteinuria way back in 2018 of 8.8 g, right leg DVT, hypertension, morbid obesity, and fatty liver, who presented to the emergency room last night with anasarca. The patient also complained of being weak and short of breath. When he presented yesterday, he was noted to have abdominal distention with increased edema in both lower extremities. Further evaluation also revealed that he was hypoxic with O2 saturation of 88% on room air. While in ED, he had a chest x-ray done, which revealed moderate vascular congestion. He also had a scrotum ultrasound, which showed large hydrocele. An abdominal and pelvic CT without IV contrast revealed ascites with liver cirrhosis. He also had a blood test done while in the emergency room, which revealed a BUN of 98 and creatinine of 4.1, which further felecia to 4.3 with a BUN of 102. Potassium was also somewhat elevated when he presented to the emergency room. Initially, ER doctors thought that he had pulmonary embolism and was about to give him a chest CT with IV contrast. The patient, however, increases oxygen saturation to the 90s with supplement oxygen via nasal cannula. He was eventually admitted. He was started on IV albumin 25 g q.i.d. and IV Lasix. He also had a large volume paracentesis of about 11 L today. He is doing much better. The last time I saw him was in 2019 and during that time his creatinine was 1.65. He said that he never went to any injection molding engineer in the interim. He also has no knowledge of liver cirrhosis and he denied drinking alcohol. Way back in 2018, we had an abdominal ultrasound done when he was admitted and during that time, he was found with fatty liver. He currently denies chest pain or shortness of breath. His leg swelling has improved as well. PAST MEDICAL HISTORY: Leg DVT on Eliquis in the past, type 2 diabetes, hypertension, nephrotic syndrome, right foot chronic infection, and anemia. SURGICAL HISTORY: None. SOCIAL HISTORY: Denies smoking, alcohol abuse or IV drug abuse. ALLERGIES: PENICILLIN AND LACTOSE. CURRENT MEDICATIONS: 1. IV albumin 35 g q.i.d. 2. Albuterol inhaler. 3. Ciprofloxacin 500 mg p.o. daily. 4. Hydrocodone. 5. Heparin 5000 units subcutaneously q.12. PHYSICAL EXAMINATION: Blood pressure 139/82, heart rate of 109, and temperature 99.4. I was not able to examine him physically as this is a video call. LABORATORY DATA: Hemoglobin 9.7, and platelet count 116,000. Sodium 140, potassium 5.4, chloride 110, CO2 of 22.2, BUN 102, creatinine 4.3, glucose 78, and phosphorus 6.1. Troponin 0.091. Albumin 3.6. Serology hepatitis C negative, bedside influenza B positive, and COVID negative. ASSESSMENT: 1. Acute kidney injury due to hepatorenal syndrome versus progression of chronic kidney disease, most likely secondary to diabetic nephropathy and hypertensive nephrosclerosis given his history of longstanding diabetes and hypertension 2. Morbid obesity. 3. Anasarca, most likely secondary to liver cirrhosis and possibly nephrotic syndrome. 4. Type 2 diabetes. 5. Hypertension. 6. Anemia of chronic kidney disease. 7. Hyperkalemia secondary to acute kidney injury. 8. Positive influenza B. 9. 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 10. Hypoxia. 11. Vascular congestion. 12. Elevated troponin level most likely secondary to congestive heart failure/volume overload. 13. Hyperkalemia due to Advanced CKD PLAN: I agree with aggressive IV diuretics and IV albumin. I am hoping that decreasing preload might increase his cardiac output, increasing renal blood flow and hopefully improving kidney function. I will also start him on Veltassa 8.4 mg p.o. daily for his hyperkalemia. I will obtain urine protein and urine creatinine to estimate his UPCR. I agree with large volume paracentesis, which hopefully help with his hypoxia at the same time improve kidney function. Continue monitoring urine output, kidney function, and electrolytes on a daily basis. If kidney function continues to deteriorate and his hyperkalemia is refractory to anti-hyperkalemic agents or diuretics or his anasarca is resistant to diuretics as well, then dialysis will be offered. The patient currently denies any uremic symptoms. He also started making more urine, which is encouraging. Continue monitoring urine output, kidney function and electrolytes on a daily basis. DT: 22:21:29 TT: 23:15:00 Ref: [id number] - TID: [id number] MTDD
[2024-04-18] VITALS (12 sets, daily range): BP systolic 124–158; BP diastolic 72–98; PULSE 98–145; RESP 15–24; TEMP 36.6–37.7; O2SAT 90–100; BMI 35.4
[2024-04-18 01:06] LABS: Troponin I 0.097 ng/mL (0.0-0.045)
[2024-04-18] MEDS: ALBUMIN HUMAN 25% IVPB 25 GM/100 ML BTL IV ×4 (05:31→21:04)
[2024-04-18 06:30] LABS: Basophils % (Auto) 0 % (0-2.5); Eosinophils % (Auto) 1 % (0-10); Hematocrit 28.4 % (41.0-53.0); Immature Granulocytes % (Auto) 1 % (0-0); Immature Granulocytes Auto 0.03 Thou/mm3 (0.00-0.00); Lymphocytes # (Auto) 0.8 Thou/mm3 (1.0-4.8); Lymphocytes % (Auto) 16 % (10-50); Mean Corpuscular HGB Conc 31.7 g/dl (31.0-37.0); Mean Corpuscular Hemoglobin 27.6 pg (25.0-35.0); Mean Corpuscular Volume 87 fL (80-100); Monocytes # (Auto) 0.6 Thou/mm3 (0.0-0.8); Monocytes % (Auto) 11 % (0-12); Neutrophils # (Auto) 3.8 Thou/mm3 (1.8-7.7); Neutrophils % (Auto) 71 % (37-80); Nucleated Red Blood Cell % 0 /100 WBC (0); Platelet Count 96 Thou/mm3 (140-440); RDW Standard Deviation 52.6 fL (35.1-43.9); Red Blood Count 3.26 Miln/mm3 (4.50-5.90); White Blood Count 5.3 Thou/mm3 (3.8-10.6)
[2024-04-18 06:45] LABS: INR 1.3 (0.9-1.3); Partial Thromboplastin Time 35.3 Seconds (22.0-36.0)
[2024-04-18 07:06] LABS: Alanine Aminotransferase < 7 U/L (10-49); Albumin, Serum 3.5 gm/dL (3.5-5.0); Albumin/Globulin Ratio 1.3 (1.2-2.2); Alkaline Phosphatase 117 U/L (46-116); Anion Gap 11 (7-16); Aspartate Amino Transferase 17 U/L (0-34); BUN/Creatinine Ratio 22 Ratio (12-20); Bilirubin,Total 0.5 mg/dL (0.3-1.2); Calcium (Corrected) 8.4 mg/dL (8.5-10.1); Carbon Dioxide 21.5 mMol/L (20.0-31.0); Chloride 109 mMol/L (98-107); Creatinine (Component) 4.8 mg/dL (0.6-1.3); Estimated Creatinine Clearance 28.3 mL/min (>60); Globulin 2.7 gm/dL (2.3-3.5); Glucose 74 mg/dL (74-106); Magnesium 2.2 mg/dL (1.6-2.6); Osmolality,Calculated 313 (275-295); Phosphorous 6.3 mg/dL (2.4-5.1); Potassium 5.9 mMol/L (3.4-5.1); Sodium 141 mMol/L (136-145); Total Protein 6.2 gm/dL (5.7-8.2); eGFR 15 See Note
[2024-04-18 07:07] LABS: Blood Urea Nitrogen 105 mg/dL (9-23)
[2024-04-18 07:20] LABS: Protein Total, Random Urine 102 mg/dL (1-14)
--- NOTE | 2024-04-18 08:35 | EKG_ITS ---
[facility] Test Date: 2024-04-18 Pat Name: ALLI MONTANA Department: Room: S2-A Gender: Male Inseam Leveler: MARY : 1985 Requested By: Cyrus Loyd Order Number: [id number] Reading MD: Cyrus Loyd Measurements Intervals [place] Rate: 98 P: 226 [place]: 276 QRS: 210 QRSD: 113 T: 43 QT: 353 QTc: 452 Interpretive Statements SINUS RHYTHM WITH MARKED SINUS ARRHYTHMIA WITH FIRST DEGREE AV BLOCK INDETERMINATE AXIS INCOMPLETE RIGHT BUNDLE BRANCH BLOCK Compared to ECG 04/16/2024 18:08:28 Indeterminate axis now present Atrial abnormality no longer present Left anterior fascicular block no longer present /store/S0/[id number]/ecg/[id number]
[2024-04-18] MEDS: SEVELAMER CARBONATE 800 MG TABLET PO ×3 (09:07→17:21)
[2024-04-18] MEDS: CIPROFLOXACIN HCL 250 MG TABLET 500 MG PO (09:09)
[2024-04-18] MEDS: PANTOPRAZOLE 40 MG TABLET PO (09:09)
--- NOTE | 2024-04-18 12:47 | PD.RESPRO ---
Documentation for date of: 04/18/24 Subjective Subjective Interval history: Barry Rahman IS A 38-y/o M PMHx nephrotic syndrome, DVT (previously on Eliquis in 2019), hypertension, morbid obesity presented on 04/16 for lower extremity/abdominal/scrotal swelling x 3 months. Noted to have been diagnosed with nephrotic syndrome 7 years ago but lost to follow-up from cable splicer helper, Dr. Teague, 3 years ago. Due to pain in his legs and scrotum, presented to ED. Admitted for acute renal failure. 04/17: ICU team was consulted for paracentesis removed 11 L and then given 50 g of albumin afterwards (received 25 g in a.m. and additional 25 at night). Started on Lasix 80 mg IV but evening dose held due to concern for hypotension. Given allergy to penicillins, antibiotic switched to ciprofloxacin for SBP prophylaxis. Strict I's and O's, fluid restriction, and nephrology following. If patient comes hypotensive, consider midodrine or octreotide. Scrotal ultrasound showed bilateral hydroceles. Sevelamer given for hyperphosphatemia. 04/18: Seen and examined at bedside in telemetry. No acute overnight events reported. Denies any fevers, chest discomfort, shortness of breath, or abdominal pain after large-volume paracentesis previous day. Continues to have good urine output of 900 cc in 24 hours as of afternoon. However, renal function continues to decline with BUN 105, creatinine 4.8, GFR 15. Patient spoke to Dr. Teague on 04/17 who stated that she will try and see the patient today but if not we will have to see him on Friday. Spoke to patient about possibility of dialysis given that renal function has not improved with albumin challenge. Phosphorus continues to be high on sevelamer 800 mg p.o. 3 times daily. Potassium noted to increase from 5.2-5.9 and repeat showed potassium of 6.1 so we will give Veltassa 8.4 g x 1, breathing treatment x 1, and repeat potassium later to see if insulin is indicated. However, will be cautious given with insulin given renal failure. Exam Vital Signs Temp Pulse Resp BP Pulse Ox O2 Del Method O2 Flow Rate 99.9 F 104 H 24 H 158/77 H 96 Nasal Cannula 2 04/18/24 08:00 04/18/24 11:04 04/18/24 11:04 04/18/24 08:00 04/18/24 11:04 04/18/24 08:00 04/18/24 11:04 Narrative Exam General: AOx3, laying comfortably in bed, on room air, able to speak full sentences HEENT: NC/AT, mucous membranes moist, bilateral sclera anicteric Cardiovascular: Tachycardic, regular rhythm, S1/S2 present, no murmurs appreciated Pulmonary: clear to auscultation bilaterally, no rales/rhonchi/wheezes Abdominal: s/p paracentesis, distended, soft, non-tender, no rebound/guarding Musculoskeletal: 3+ bilateral lower extremity pitting edema up to thighs Skin: chronic venous stasis changes in BLE Neuro: CN II-XII intact, no focal deficits Objective Labs 04/18/24 05:44 04/18/24 13:56 Labs: Laboratory Results - last 24 hr 04/17/24 04/17/24 04/18/24 15:30 18:37 00:15 WBC RBC Hgb Hct MCV MCH MCHC RDW Std Deviation Plt Count Neut % (Auto) Lymph % (Auto) Hawkins % (Auto) Eos % (Auto) Baso % (Auto) Neut # (Auto) Lymph # (Auto) Hawkins # (Auto) Eos # (Auto) Baso # (Auto) Immature Gran # (Auto) Absolute Nucleated RBC Immature Gran % Nucleated RBC % PT INR APTT Sodium Potassium Chloride Carbon Dioxide Anion Gap BUN Creatinine Estim Creat Clear Calc eGFR BUN/Creatinine Ratio Glucose Calculated Osmolality Calcium Corrected Calcium Phosphorus Magnesium Total Bilirubin AST ALT Alkaline Phosphatase Troponin I 0.091 H* 0.097 H* Total Protein Albumin Globulin Albumin/Globulin Ratio U Random Total Protein Peritoneal Color Yellow Peritoneal Appearance Hazy Peritoneal WBC 81 Peritoneal RBC 1000 Periton Polynucl WBCs 4.0 Periton Mononucl WBCs 96.0 Peritoneal Tot Protein 4 Peritoneal Albumin 2.2 Peritoneal LDH 97 Peritoneal Glucose 84 Peritoneal Amylase 24 04/18/24 04/18/24 05:38 05:44 WBC 5.3 RBC 3.26 L Hgb 9.0 L Hct 28.4 L MCV 87 MCH 27.6 MCHC 31.7 RDW Std Deviation 52.6 H Plt Count 96 L Neut % (Auto) 71 Lymph % (Auto) 16 Hawkins % (Auto) 11 Eos % (Auto) 1 Baso % (Auto) 0 Neut # (Auto) 3.8 Lymph # (Auto) 0.8 L Hawkins # (Auto) 0.6 Eos # (Auto) 0.0 Baso # (Auto) 0.0 Immature Gran # (Auto) 0.03 H Absolute Nucleated RBC 0.00 Immature Gran % 1 H Nucleated RBC % 0 PT 14.0 H INR 1.3 APTT 35.3 Sodium 141 Potassium 5.9 H D Chloride 109 H Carbon Dioxide 21.5 Anion Gap 11 BUN 105 H* Creatinine 4.8 H* D Estim Creat Clear Calc 28.3 L eGFR 15 L BUN/Creatinine Ratio 22 H Glucose 74 Calculated Osmolality 313 H Calcium 8.0 L Corrected Calcium 8.4 L Phosphorus 6.3 H Magnesium 2.2 Total Bilirubin 0.5 AST 17 ALT < 7 L Alkaline Phosphatase 117 H D Troponin I Total Protein 6.2 Albumin 3.5 Globulin 2.7 Albumin/Globulin Ratio 1.3 U Random Total Protein 102 H Peritoneal Color Peritoneal Appearance Peritoneal WBC Peritoneal RBC Periton Polynucl WBCs Periton Mononucl WBCs Peritoneal Tot Protein Peritoneal Albumin Peritoneal LDH Peritoneal Glucose Peritoneal Amylase ABG Interpretation ABG results: 04/16/24 19:09 ABG pH 7.32 L ABG pCO2 39 ABG pO2 55 L* ABG HCO3 20 ABG O2 Saturation 88 L ABG Base Excess -6 L Quality Measures Quality Measures VTE prophylaxis (Heparin on hold) Assessment & Plan Assessment Current Active Medications: Generic Name Dose Route Start Last Admin Trade Name Freq PRN Reason Stop Dose Admin Acetaminophen 650 mg 04/16/24 21:30 Acetaminophen 325 Mg Tablet PO 05/16/24 21:29 Q6H PRN Fever >100 or pain 1-3 Hydrocodone Bitart/Acetaminophen 1 tab 04/17/24 00:00 04/17/24 00:10 Hydrocodone/Apap 5/325 Tablet PO 04/22/24 00:00 1 tab Q4HR PRN Administration Pain 4-6 Al Hydrox/Mg Hydrox/Simethicone 30 ml 04/17/24 17:59 04/17/24 18:12 Mg Hyd/Al Hyd/Odette (Maalox Reg) Susp 30 Ml Udc PO 05/17/24 17:58 30 ml Q4HR PRN Administration UPSET STOMACH/INDIGESTION Albuterol/Ipratropium 3 ml 04/16/24 21:30 Albuterol/Ipratropium (Duoneb) Rt Carol 3 Ml Nebu INH 05/17/24 00:59 Q6HRRT PRN sob Ciprofloxacin 500 mg 04/18/24 09:00 04/18/24 09:09 Ciprofloxacin Hcl 250 Mg Tablet PO 04/25/24 08:59 500 mg QDAY FLOR[place] Administration Dextrose 25 ml 04/17/24 07:57 Dextrose 50%-Water Inj 50 Ml Syringe IV 05/17/24 07:56 Q15MIN PRN BG 50-70 responsive npo pt Dextrose 50 ml 04/17/24 07:57 Dextrose 50%-Water Inj 50 Ml Syringe IV 05/17/24 07:56 Q15MIN PRN BG <50 OR BG <70 & pt unresponsive Furosemide 80 mg 04/17/24 06:00 04/17/24 06:20 Furosemide Inj 10 Mg/Ml 4ml Vial IVP 05/17/24 05:59 80 mg BIDD [place] Administration Glucagon 1 mg 04/17/24 07:57 Glucagon Inj 1 Mg Vial IM Q15MIN PRN BG <70, and no IV access Heparin Sodium (Porcine) 5,000 unit 04/17/24 09:00 Heparin Sod Inj 5000 Unit/Ml Vial SC 05/01/24 08:59 Q12HR FL[place]ENCE Albumin Human 25 gm in 100 mls @ 100 mls/hr 04/16/24 21:45 04/18/24 12:03 Albuminar-25 Ivpb IV 04/19/24 21:44 100 mls/hr QID FL[place] Administration Ondansetron HCl 4 mg 04/16/24 21:30 04/17/24 08:41 Ondansetron Inj 2 Mg/Ml Inj 2 Ml IV 05/16/24 21:29 4 mg Q6H PRN Administration NAUSEA OR VOMITING Protocol Oseltamivir Phosphate 30 mg 04/19/24 09:00 Oseltamivir 30 Mg Capsule PO 04/26/24 09:01 QDAY FLORENCE Pantoprazole Sodium 40 mg 04/17/24 09:00 04/18/24 09:09 Pantoprazole 40 Mg Tablet PO 05/17/24 08:59 40 mg QDAY FLORENCE Administration Pharmacy Consult 1 each 04/18/24 10:17 Pharmacy Renal Dose Adjustment 1 Ea XX 05/18/24 10:16 PRN PRN CONSULT Sennosides 1 tab 04/17/24 08:15 Senna Tablet PO 05/17/24 08:14 QDAY PRN CONSTIPATION Protocol Sevelamer Carbonate 800 mg 04/17/24 08:00 04/18/24 12:03 Sevelamer Carbonate 800 Mg Tablet PO 05/17/24 07:59 800 mg TIDWM FLORENCE Administration Plan Barry Rahman IS A 38-y/o M PMHx nephrotic syndrome, DVT (previously on Eliquis in 2019), hypertension, morbid obesity presented on 04/16 for lower extremity/abdominal/scrotal swelling x 3 months. Noted to have been diagnosed with nephrotic syndrome 7 years ago but lost to follow-up from cable splicer helper, Dr. Teague, 3 years ago. Due to pain in his legs and scrotum, presented to ED. Admitted for acute renal failure. #Acute renal failure, secondary to #? Hepatorenal syndrome #? Nephrotic syndrome Presented with creatinine of 4.1, with most recent being 2.1 in 2021 and prior to that in 2018 BL appeared to be 1.5-1.6. Will proceed with albumin challenge and observe how patient responds. SAAG of 1.4 (> 1.1), indicating portal HTN as etiology of ascites. ? Nephrology consulted, appreciate recommendations ? Strict I's and O's, fluid restriction, s/p Lasix challenge ? Patient makes urine so we will hold off on dialysis for now ? Ciprofloxacin 500 mg p.o. daily (renally dosed, 04/17-) for SBP prophylaxis ? Patient has penicillin allergy ? Renally dose medications, avoid nephrotoxic agents if possible ? Albumin 25 g IV 4 times daily ? 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 CT A/P showed heart failure, vascular congestion, pericardial effusion, cirrhosis, and significant ascites. US scrotum: Large bilateral hydroceles with scrotal wall edema. Status post paracentesis removal of 11 L with 50 g of albumin given. No significant history of EtOH consumption or portal HTN and hepatitis panel (-). 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 Suspect presentation may be due to cirrhosis/hepatorenal syndrome. However, liver synthetic function appears to be relatively intact as LFTs normal, plts mildly low at 116, INR 1.3, and albumin 3.6. ? Nephrology consulted, appreciate recommendations ? Lasix 80 mg IV twice daily ? Albumin 25 g IV QID ? Consider midodrine or octreotide if patient becomes hypotensive #Hyperkalemia, in setting of acute renal failure K of 5.9 on 04/18 with repeat of 6.1. EKG did not show peaked T waves. ? Breathing treatment x 1 ? Veltassa 8.4 g x 1 ? Lasix as above ? Follow-up repeat K at 5 PM and determine if patient will require insulin #AHRF, secondary to influenza pneumonia Also presented with SOB and cough, found to be influenza positive. ? Tamiflu 30 mg twice daily (renally dosed, 04/17-) ? DuoNebs #Demand ischemia, NSTEMI type II in setting of #Pericadial effusion #? Heart failure History of pericardial effusion as seen on echo in 2018 and currently has 14 mm pericardial effusion. BNP [address] showed mild-moderate enlarged cardiac contour, prominent vascular congestion and bilateral pulmonary edema. ? Follow-up echocardiogram ? Follow-up repeat troponin #Hypertension Home hydralazine 100 mg TID -> holding due to to concern for hypotension after paracentesis ? Hold off on ISABELA and ARB's #Normocytic anemia, likely secondary to CKD ? Follow-up on iron panel and ferritin #Hyperphosphatemia ? Sevelamer 800 mg p.o. 3 times daily #History of DVT No blood thinner as home. D-dimer around 3000, DVT lower extremity negative. Hospital management: Disposition: pending nephrology recommendations regarding dialysis Fluids: none Diet: renal Lines: PIV DVT prophylaxis: heparin SC GI prophylaxis: pantoprazole IV Starr: placed CODE STATUS: full code ----- Plan discussed with attending physician Dr. Nelida Loyd MD PGY-1 Internal Medicine Attending Provider Attestation/Addendum I have discussed and was present for the essential components of the history, physical examination, diagnosis, and treatment plan with the resident. I agree with the patient's care as documented by the resident and amended herein by me. Anirudh Krause DO. Patient seen and evaluated this AM. No acute events overnight, patient mildly tachycardic with a rate of 109, BP in the 1 50-1 60s overnight, patient afebrile, presently on NC 3 L, SpO2 94% at time of bedside visit. Significant labs include a hemoglobin of 9, platelet count 96, potassium 5.9 chloride 109, BUN 105 and an increasing creatinine of 4.8 today. The patient did have a large-volume paracentesis yesterday, 11 L removed, fluid studies indicative of portal hypertension, cultures pending. Echo is also pending, likely will occur tomorrow. Blood cultures NGTD thus far. Will continue Cipro and Tamiflu for now, nephrology consulted, appreciate recommendations, will continue Lasix IV 80 mg twice daily per nephrology recommendations and albumin. Hopefully we see some improvement tomorrow with the patient's renal function however if not, may have to consider dialysis which was explained to the patient. Although this document has been carefully reviewed, there may still be some phonetic and other typographical errors. These errors are purely grammatical due to imperfections in the software program and should not be construed in any way to compromise the substance of the patient's medical care during this visit.
--- NOTE | 2024-04-18 13:26 | PC.SS ---
Barry Rahman is 38 year old male admitted to [facility] for acute renal failure. SS conducted bedside contact with the patient to complete initial assessment and to discuss discharge planning.? SW used all precautionary measures to complete initial. Role and reason for the contact was explained to Barry. Pt is alert and oriented times 4. Pt gave verbal authorization for Delaney Carcamo, mother, to be present while assessment was conducted. Patient confirmed demographic information confirming information correct on facesheet. Pt lives with family. Patient identifies Delaney Carcamo, mother [phone], as his surrogate decision maker. Pt states prior to hospitalization he is able to complete all ADL?s independently. Pt does not use DME, Pt does not use O2. Pt was using O2 at time of assessment; pt is open to any provider for O2 services. Pt confirmed no history of mental health or substance history. Pts PCP is [facility]. Pharmacy of choice is [facility] in [facility] [place]. Discharge options discussed and the pt will return home. Family will provide transportation upon DC. Pt would like ot remove Yanni Valenzuela as contact; pt has new job at [employer]. No further intervention required at this time, bilingual social worker would be available to address any further concerns. DC Plan: Home Contact: mother Khan [phone] Address: Confirmed on face sheet PCP: [facility]
[2024-04-18 14:58] LABS: Potassium 6.1 mMol/L (3.4-5.1)
--- NOTE | 2024-04-18 15:28 | EKG_ITS ---
[facility] Test Date: 2024-04-18 Pat Name: ALLI MONTANA Department: Room: S2-A Gender: Male Supervisor [employer]ing [employer]: BENJA : 1985 Requested By: Cyrus Loyd Order Number: [id number] Reading MD: Cyrus Loyd Measurements Intervals Monitor Rate: 106 P: -9 DE: 209 QRS: 191 QRSD: 121 T: 28 QT: 359 QTc: 477 Interpretive Statements SINUS TACHYCARDIA WITH OCCASIONAL SUPRAVENTRICULAR PREMATURE COMPLEXES INDETERMINATE AXIS RIGHT BUNDLE BRANCH BLOCK Compared to ECG 04/18/2024 09:13:41 Right bundle-branch block now present Sinus rhythm no longer present Sinus arrhythmia no longer present First degree AV block no longer present Incomplete right bundle-branch block no longer present /store/S0/[id number].pdf
[2024-04-18] MEDS: PATIROMER CALCIUM 8.4 GM PACKET (NON-FORM) PO (15:53)
--- NOTE | 2024-04-18 16:38 | PC.SS ---
SS spoke with Sadie, registration, updated address to [facility] ; removed Person to Notify per pt
[2024-04-18 17:12] LABS: Troponin I 0.097 ng/mL (0.0-0.045)
[2024-04-18] MEDS: FUROSEMIDE INJ 10 MG/ML 4ML VIAL 80 MG IVP (18:01)
[2024-04-18 18:35] LABS: Potassium 6.2 mMol/L (3.4-5.1)
[2024-04-18] MEDS: ALBUTEROL RT 2.5 MG/0.5 ML NEBU 15 MG INH (19:26)
[2024-04-18] MEDS: Sodium Bicarb Inj 8.4% SYR 50 ML SYRINGE IV (19:27)
[2024-04-18] MEDS: CALCIUM GLUCONATE 10% INJ 1 GM/10 ML VIAL IV (19:27)
--- NOTE | 2024-04-18 20:40 | EKG_ITS ---
[facility] Test Date: 2024-04-18 Pat Name: ALLI MONTANA [facility] Male Title Officer: JOSÉ MIGUEL : 1985 Requested By: Jamal Mohan Order Number: [id number] Reading MD: Jamal Mohan Measurements Intervals [place] Rate: 134 P: CT: QRS: 209 QRSD: 120 T: 30 QT: 314 QTc: 470 Interpretive Statements ATRIAL FIBRILLATION WITH RAPID VENTRICULAR RESPONSE WITH ABERRANT CONDUCTION OR VENTRICULAR PREMATURE COMPLEXES INDETERMINATE AXIS RIGHT BUNDLE BRANCH BLOCK Compared to ECG 04/18/2024 18:32:00 Ventricular premature complex(es) now present Aberrant conduction of supraventricular beat(s) now present Sinus tachycardia no longer present /store/S0/[id number].pdf
[2024-04-18 20:45] LABS: Albumin, Serum 3.9 gm/dL (3.5-5.0); Anion Gap 13 (7-16); BUN/Creatinine Ratio 21 Ratio (12-20); Blood Urea Nitrogen 100 mg/dL (9-23); Calcium 8.3 mg/dL (8.3-10.6); Calcium (Corrected) 8.4 mg/dL (8.5-10.1); Carbon Dioxide 20.2 mMol/L (20.0-31.0); Chloride 109 mMol/L (98-107); Creatinine (Component) 4.8 mg/dL (0.6-1.3); Estimated Creatinine Clearance 28.3 mL/min (>60); Glucose 88 mg/dL (74-106); Osmolality,Calculated 313 (275-295); Phosphorous 5.4 mg/dL (2.4-5.1); Potassium 5.3 mMol/L (3.4-5.1); Sodium 142 mMol/L (136-145); eGFR 15 See Note
[2024-04-18] MEDS: METOPROLOL TARTRATE INJ 1 MG/ML AMP 5 ML 2.5 MG IVP (20:59)
[2024-04-18] MEDS: HEPARIN SOD INJ 5000 UNIT/ML VIAL SC (21:03)
[2024-04-18 21:04] LABS: Lactate (Lactic Acid) 1.2 mMol/L (0.4-2.0)
[2024-04-18] MEDS: SENNA TABLET 1 TAB PO ×2 (21:05→21:48)
[2024-04-18 21:06] LABS: Troponin I 0.102 ng/mL (0.0-0.045)
--- NOTE | 2024-04-18 23:41 | EVENTNT_ITS ---
<Statement entered by Chauncey Bedoya MD - 04/20/24 05:43> I reviewed above note and agree with findings and plans. I have also personally examined the patient with medicine team and went over assessment and plan with medical team including automotive internet sales manager and resident physician. Documentation for date of: 04/18/24 Event Note Event Note: At around 2019, rapid response was called for patient for an evaluation of HR going up to 160s. Pt felt his heart racing, but was not experiencing any chest pain at the time. Blood pressure remained to be 130s SBP. Workup included EKG, Lactate, Troponin, and CMP. EKG initially showed to look like Afib with RVR, however, appears to have P/U waves, and appears more to be PVCs. Lopressor 2.5 mg IV given to pt. Will follow up on other labs. Patient seen and care discussed with my attending physician, Dr. Aureliano Hatfield, PGY-1
[2024-04-18] MEDS: DEXTROSE 50%-WATER INJ 50 ML SYRINGE IV (23:56)
[2024-04-18] MEDS: INSULIN HUM REGULAR 1 UNIT/0.01 ML (PER UNIT) 5 UNIT IV (23:57)
[2024-04-19] VITALS (26 sets, daily range): BP systolic 119–167; BP diastolic 68–100; PULSE 68–113; RESP 15–25; TEMP 35.8–37.3; O2SAT 88–99; BMI 35.6
--- NOTE | 2024-04-19 | XR_ITS ---
Exam: The right IJ temporary dialysis catheter placement. INDICATION: Renal failure. DATE: 04/19/2024, 1:59 PM Fluoroscopy time: 1.0 minutes Dose: 17.16 mGy PROCEDURE: After a discussion of risks and benefits informed consent was obtained. The patient was brought to the fluoroscopy suite and placed supine on the exam table. Preliminary ultrasound evaluation demonstrated the right IJ to be patent. The overlying skin was cleaned and draped in normal sterile surgical fashion. 10 cc 1% lidocaine was used for local anesthesia. Using ultrasound guidance access to the right internal jugular vein was obtained with a micropuncture needle. 0.018 wire was advanced through the needle and the needle was withdrawn. 5 Hebrew exchange sheath was placed over the wire and the wire was withdrawn. 0.035 wire was advanced through the sheath into the IVC. The tract was serially dilated and a 11.5 Hebrew x 20 cm dual-lumen Vas-Cath was placed over the wire and the wire was withdrawn. Distal catheter tip was appropriately positioned in the right atrium. Both ports flushed and aspirated easily. Catheter sutured in place with a 2-0 silk suture and covered with sterile dressing. There were no immediate complications. IMPRESSION: Successful right IJ temporary dialysis catheter placement as above. Catheter is ready for use.
[2024-04-19] MEDS: ALBUMIN HUMAN 25% IVPB 25 GM/100 ML BTL IV ×3 (05:07→19:46)
[2024-04-19] MEDS: FUROSEMIDE INJ 10 MG/ML 4ML VIAL 80 MG IVP ×2 (05:09→19:46)
--- NOTE | 2024-04-19 05:24 | ECHO_ITS ---
Transthoracic Echo Report Ht (in): 73 Wt (lb): 269 Exam Location: Portable Status: Inpatient Associate Director Financial Aid: MAYES Chris^^^^ Indications: Procedure Performed: BP: 110 / 62 HR: 108 Technical Quality: Fair MEASUREMENTS (Male / Female) Normal Values 2D ECHO LV Diastolic Diameter PLAX 5.6 cm 4.2 - 5.9 / 3.9 - 5.3 cm LV Systolic Diameter PLAX 5.0 cm IVS Diastolic Thickness 0.7 cm 0.6 - 1.0 / 0.6 - 0.9 cm LVPW Diastolic Thickness 0.7 cm 0.6 - 1.0 / 0.6 - 0.9 cm LV Relative Wall Thickness 0.2 LVOT Diameter 1.8 cm Aortic Root Diameter 3.5 cm LA Systolic Diameter LX 5.0 cm 3.0 - 4.0 / 2.7 - 3.8 cm LV Ejection Fraction MOD BP 19.4 % >= 55 % LV Cardiac Index MOD BP 1610.9 cm?/min?m? LV Ejection Fraction MOD 4C 23.3 % LV Cardiac Index MOD 4C 1907.6 cm?/min?m? LV Ejection Fraction 4C AL 20.4 % LV Cardiac Index 4C AL 1624.5 cm?/min?m? LV Ejection Fraction MOD 2C 16.2 % LV Cardiac Index MOD 2C 1314.1 cm?/min?m? LV Ejection Fraction 2C AL 18.7 % LV Cardiac Index 2C AL 1527.4 cm?/min?m? LA Volume Index 64.5 cm?/m? 16 - 28 cm?/m? Ascending Aorta Diameter 3.3 cm DOPPLER AV Peak Velocity 127.0 cm/s AV Peak Gradient 6.5 mmHg AV Mean Gradient 5.0 mmHg AV Velocity Time Integral 22.0 cm AI Peak Velocity 251.0 cm/s AI Peak Gradient 25.2 mmHg AI Pressure Half Time 500.0 ms LVOT Peak Velocity 72.4 cm/s LVOT Peak Gradient 2.1 mmHg LVOT Velocity Time Integral 15.5 cm LVOT Cardiac Index 1672.0 cm?/min?m? AV Area Cont Eq vti 1.8 cm? AV Area Cont Eq pk 1.5 cm? MV Peak Velocity 140.0 cm/s MV Peak Gradient 7.8 mmHg MV Mean Velocity 105.0 cm/s MV Mean Gradient 5.0 mmHg MV Area PHT 5.5 cm? MR Peak Velocity 361.0 cm/s MR Peak Gradient 52.1 mmHg Mitral E Point Velocity 116.0 cm/s Mitral A Point Velocity 45.9 cm/s Mitral E to A Ratio 2.5 LV E' Lateral Velocity 9.6 cm/s Mitral E to LV E' Lateral Ratio 12.1 LV E' Septal Velocity 5.1 cm/s Mitral E to LV E' Septal Ratio 22.7 TR Peak Velocity 245.7 cm/s TR Peak Gradient 24.1 mmHg PV Peak Velocity 87.5 cm/s PV Peak Gradient 3.1 mmHg RVOT Peak Velocity 44.3 cm/s FINDINGS Left Ventricle There are findings consistent with dilated cardiomyopathy. There is grade III diastolic dysfunction of the left ventricle (restrictive filling pattern). The left ventricular ejection fraction is severely decreased, estimated at 25-30%. Right Ventricle The right ventricular systolic function is mildly decreased. The right ventricular systolic function is normal 25 mmHg. Left Atrium Severely increased left atrial volume 64.5 mL/m?. Right Atrium The right atrial cavity size is moderately increased. Atrial Septum The interatrial septum is normal to color flow Doppler. Aorta The aorta is normal by two-dimensional, color flow and Doppler interrogation. Mitral Valve Uldy-[id number] mitral regurgitation. Mild mitral annular calcification. Aortic Valve Diffuse calcification of the aortic valve. Mild aortic valve regurgitation. Tricuspid Valve There is mild tricuspid valve regurgitation. Pulmonic Valve Trivial pulmonic valve regurgitation. Vessels The pulmonary artery appears normal. The inferior vena cava pulmonary and hepatic veins appear normal. Pericardium The pericardium is normal by two-dimensional imaging. There is a small pericardial effusion. CONCLUSIONS indication: Acute Renal Failure Dilated cardiomyopathy with severe LV dysfuncyion LVEF 25-30% LA is severely dilated. RA is mildly dilated. Mild MAC wit mild MR Mild TR small pericardial effusion. Ana Marlow (Electronically Signed) Final Date: 19 April 2024 17:13
[2024-04-19 06:11] LABS: Basophils % (Auto) 0 % (0-2.5); Eosinophils % (Auto) 0 % (0-10); Immature Granulocytes % (Auto) 0 % (0-0); Immature Granulocytes Auto 0.02 Thou/mm3 (0.00-0.00); Lymphocytes # (Auto) 0.8 Thou/mm3 (1.0-4.8); Lymphocytes % (Auto) 13 % (10-50); Mean Corpuscular HGB Conc 31.1 g/dl (31.0-37.0); Mean Corpuscular Hemoglobin 27.3 pg (25.0-35.0); Mean Corpuscular Volume 88 fL (80-100); Monocytes # (Auto) 0.5 Thou/mm3 (0.0-0.8); Monocytes % (Auto) 8 % (0-12); Neutrophils # (Auto) 4.5 Thou/mm3 (1.8-7.7); Neutrophils % (Auto) 78 % (37-80); Nucleated Red Blood Cell % 0 /100 WBC (0); Platelet Count 95 Thou/mm3 (140-440); RDW Standard Deviation 52.2 fL (35.1-43.9); Red Blood Count 3.19 Miln/mm3 (4.50-5.90); White Blood Count 5.8 Thou/mm3 (3.8-10.6)
[2024-04-19 06:14] LABS: INR 1.3 (0.9-1.3); Partial Thromboplastin Time 38.3 Seconds (22.0-36.0); Prothrombin Time 14.2 Seconds (9.0-12.2)
[2024-04-19 06:33] LABS: Hemoglobin 8.7 g/dL (13.5-16.0)
[2024-04-19 06:43] LABS: Alanine Aminotransferase 7 U/L (10-49); Albumin, Serum 4.2 gm/dL (3.5-5.0); Albumin/Globulin Ratio 1.5 (1.2-2.2); Alkaline Phosphatase 111 U/L (46-116); Anion Gap 12 (7-16); Aspartate Amino Transferase 16 U/L (0-34); BUN/Creatinine Ratio 21 Ratio (12-20); Bilirubin,Total 0.5 mg/dL (0.3-1.2); Carbon Dioxide 22.1 mMol/L (20.0-31.0); Chloride 108 mMol/L (98-107); Estimated Creatinine Clearance 27.2 mL/min (>60); Globulin 2.8 gm/dL (2.3-3.5); Glucose 96 mg/dL (74-106); Osmolality,Calculated 316 (275-295); Phosphorous 5.3 mg/dL (2.4-5.1); Potassium 5.4 mMol/L (3.4-5.1); Sodium 142 mMol/L (136-145); eGFR 14 See Note
[2024-04-19 06:55] LABS: Blood Urea Nitrogen 107 mg/dL (9-23)
[2024-04-19 06:58] LABS: Troponin I 0.116 ng/mL (0.0-0.045)
--- NOTE | 2024-04-19 08:07 | EKG_ITS ---
[facility] Test Date: 2024-04-19 Pat Name: ALLI MONTANA [facility] Gender: Male Top Stitcher: MARY : 1985 Requested By: Rod Robin Order Number: [id number] Reading MD: Rod Robin Measurements Intervals [place] Rate: 105 P: MT: QRS: 191 QRSD: 116 T: 33 QT: 359 QTc: 475 Interpretive Statements ATRIAL FIBRILLATION WITH RAPID VENTRICULAR RESPONSE INCOMPLETE RIGHT BUNDLE BRANCH BLOCK POSSIBLE RIGHT VENTRICULAR HYPERTROPHY SEPTAL MYOCARDIAL INFARCTION , OF INDETERMINATE AGE Compared to ECG 04/18/2024 20:42:00 Incomplete right bundle-branch block now present Myocardial infarct finding now present Ventricular premature complex(es) no longer present Aberrant conduction of supraventricular beat(s) no longer present Indeterminate axis no longer present Right bundle-branch block no longer present /store/S0/[id number].pdf
[2024-04-19] MEDS: LEVALBUTEROL RT 0.63 MG/3 ML NEBU INH (08:28)
[2024-04-19] MEDS: CALCIUM CARBONATE 600 MG TABLET PO (08:33)
[2024-04-19] MEDS: PANTOPRAZOLE 40 MG TABLET PO (08:33)
[2024-04-19] MEDS: CIPROFLOXACIN HCL 250 MG TABLET 500 MG PO (08:33)
[2024-04-19] MEDS: HEPARIN SOD INJ 5000 UNIT/ML VIAL SC ×2 (08:34→20:53)
[2024-04-19] MEDS: OSELTAMIVIR 30 MG CAPSULE PO (08:34)
[2024-04-19] MEDS: SEVELAMER CARBONATE 800 MG TABLET PO ×3 (08:37→19:45)
[2024-04-19 08:39] LABS: Misc Send Out* See Sep Rpt
[2024-04-19 08:53] LABS: Ferritin 150 ng/mL (10.5-307.3); Iron 9 mcg/dL (65-175); Percent Iron Saturation 4 % (20-55); Total Iron Binding Capacity 186 mcg/dL (250-425); Unsaturated Iron Binding 177 (225-295)
--- NOTE | 2024-04-19 13:27 | ESPR_ITS ---
<Statement entered by Rod Robin MD - 04/19/24 20:24> Patient was seen and examined at the bedside. Overnight, rapid response was called for A-fib with RVR and night team gave him metoprolol 2.5 mg x 1 which dropped the heart rate. Patient's [id number] is 2. Vitals were stable this morning. Patient reported improvement in his belly pain. He was sleeping as whole night he was awake. Mother was present at the bedside. Labs were significant for hyperkalemia, worsening kidney functions with elevated BUN and creatinine. Patient was still making urine and make around 700 cc of output. [employer] Seat Cover Fitter recommended to place an order for temporary dialysis catheter so that we can do dialysis for short time. Lasix was held for morning. Patient's family was agreeable to the plan. Anasarca slightly improved. Will continue with strict SUKH's, fluid restriction. All labs and orders were reviewed. I saw and examined the patient, and I agree with current management stated by Dr Evert MD,PGY1. Plan of care was discussed with the attending physician and resident physician. Disclaimer: Despite multiple revisions, due to the dictation software being used, the document bellow may not be free of grammatical errors including phonetic/typographic errors. However, this does not deter from our commitment to providing health care in the patient's best interest in mind. Dr. Kun MD, PGY 2 Documentation for date of: 04/19/24 Subjective Subjective Interval history: Barry Rahman is a 38-y/o male with a PMHx of nephrotic syndrome, DVT (previously on Eliquis in 2019), hypertension, morbid obesity presented on 04/16 for lower extremity/abdominal/scrotal swelling x 3 months. Noted to have been diagnosed with nephrotic syndrome 7 years ago but lost to follow-up from medicare compliance auditor, Dr. Teague, 3 years ago. Due to pain in his legs and scrotum, presented to ED. Admitted for acute renal failure. 04/17: ICU team was consulted for paracentesis removed 11 L and then given 50 g of albumin afterwards (received 25 g in a.m. and additional 25 at night). Started on Lasix 80 mg IV but evening dose held due to concern for hypotension. Given allergy to penicillins, antibiotic switched to ciprofloxacin for SBP prophylaxis. Strict I's and O's, fluid restriction, and nephrology following. If patient comes hypotensive, consider midodrine or octreotide. Scrotal ultrasound showed bilateral hydroceles. Sevelamer given for hyperphosphatemia. 04/18: Seen and examined at bedside in telemetry. No acute overnight events reported. Denies any fevers, chest discomfort, shortness of breath, or abdominal pain after large-volume paracentesis previous day. Continues to have good urine output of 900 cc in 24 hours as of afternoon. However, renal function continues to decline with BUN 105, creatinine 4.8, GFR 15. Patient spoke to Dr. Teague on 04/17 who stated that she will try and see the patient today but if not we will have to see him on Friday. Spoke to patient about possibility of dialysis given that renal function has not improved with albumin challenge. Phosphorus continues to be high on sevelamer 800 mg p.o. 3 times daily. Potassium noted to increase from 5.2-5.9 and repeat showed potassium of 6.1 so we will give Veltassa 8.4 g x 1, breathing treatment x 1, and repeat potassium later to see if insulin is indicated. However, will be cautious given with insulin given renal failure. 04/19: Seen and examined at bedside in telemetry. Noted to have RR at 2024 HR up to 160s with associated palpitations but no shortness of breath, chest pain, or lightheadedness. SBP in 130s and given Lopressor 2.5 mg IV. Upon evaluation, patient did not endorse any symptoms. Continues to have good UOP with total of 900 cc on 04/18. Potassium noted to be 5.4 in a.m. after receiving albuterol and insulin overnight. Will give another breathing treatment and repeat BMP in afternoon showed potassium of 5.0. However, renal function has not been improving with albumin with BUN of 102 and creatinine 5.2. Called Dr. Teague who stated that patient will require urgent dialysis and spoke to patient and family who are in agreemtn. Thus, temporary dialysis catheter placed and plans for first session tomorrow morning. Otherwise, calcium repleted and will stop trending troponin given decreased kidney function and that it is likely not clearing. Exam Vital Signs Temp Pulse Resp BP Pulse Ox O2 Del Method O2 Flow Rate 98.6 F 99 20 155/79 H 96 Nasal Cannula 2 04/19/24 12:00 04/19/24 12:00 04/19/24 12:00 04/19/24 12:00 04/19/24 12:00 04/19/24 12:00 04/19/24 12:00 Narrative Exam General: AOx3, laying comfortably in bed, on room air, able to speak full sentences HEENT: NC/AT, mucous membranes moist, bilateral sclera anicteric Cardiovascular: Tachycardic, regular rhythm, S1/S2 present, no murmurs appreciated Pulmonary: clear to auscultation bilaterally, no rales/rhonchi/wheezes Abdominal: s/p paracentesis, distended, soft, non-tender, no rebound/guarding Musculoskeletal: 3+ bilateral lower extremity pitting edema up to thighs Skin: chronic venous stasis changes in BLE Neuro: CN II-XII intact, no focal deficits Objective Labs 04/20/24 05:25 04/20/24 05:25 Labs: Laboratory Results - last 24 hr 04/18/24 04/18/24 04/18/24 13:56 16:32 17:35 WBC RBC Hgb Hct MCV MCH MCHC RDW Std Deviation Plt Count Neut % (Auto) Lymph % (Auto) [place] % (Auto) Eos % (Auto) Baso % (Auto) Neut # (Auto) Lymph # (Auto) [place] # (Auto) Eos # (Auto) Baso # (Auto) Immature Gran # (Auto) Absolute Nucleated RBC Immature Gran % Nucleated RBC % PT INR APTT Sodium Potassium 6.1 H* 6.2 H* Chloride Carbon Dioxide Anion Gap BUN Creatinine Estim Creat Clear Calc eGFR BUN/Creatinine Ratio Glucose Calculated Osmolality Lactic Acid Calcium Corrected Calcium Phosphorus Magnesium Iron TIBC Iron Saturation Unsat Iron Binding Ferritin Total Bilirubin AST ALT Alkaline Phosphatase Troponin I 0.097 H* Total Protein Albumin Globulin Albumin/Globulin Ratio 04/18/24 04/18/24 04/18/24 20:20 20:26 20:58 WBC RBC Hgb Hct MCV MCH MCHC RDW Std Deviation Plt Count Neut % (Auto) Lymph % (Auto) [place] % (Auto) Eos % (Auto) Baso % (Auto) Neut # (Auto) Lymph # (Auto) [place] # (Auto) Eos # (Auto) Baso # (Auto) Immature Gran # (Auto) Absolute Nucleated RBC Immature Gran % Nucleated RBC % PT INR APTT Sodium 142 Potassium 5.3 H D Chloride 109 H Carbon Dioxide 20.2 Anion Gap 13 BUN 100 H Creatinine 4.8 H* Estim Creat Clear Calc 28.3 L eGFR 15 L BUN/Creatinine Ratio 21 H Glucose 88 Calculated Osmolality 313 H Lactic Acid 1.2 Calcium 8.3 Corrected Calcium 8.4 L Phosphorus 5.4 H Magnesium Iron TIBC Iron Saturation Unsat Iron Binding Ferritin Total Bilirubin AST ALT Alkaline Phosphatase Troponin I 0.102 H* Total Protein Albumin 3.9 Globulin Albumin/Globulin Ratio 04/19/24 05:17 WBC 5.8 RBC 3.19 L Hgb 8.7 L Hct 28.0 L MCV 88 MCH 27.3 MCHC 31.1 RDW Std Deviation 52.2 H Plt Count 95 L Neut % (Auto) 78 Lymph % (Auto) 13 [place] % (Auto) 8 Eos % (Auto) 0 Baso % (Auto) 0 Neut # (Auto) 4.5 Lymph # (Auto) 0.8 L [place] # (Auto) 0.5 Eos # (Auto) 0.0 Baso # (Auto) 0.0 Immature Gran # (Auto) 0.02 H Absolute Nucleated RBC 0.00 Immature Gran % 0 Nucleated RBC % 0 PT 14.2 H INR 1.3 APTT 38.3 H Sodium 142 Potassium 5.4 H Chloride 108 H Carbon Dioxide 22.1 Anion Gap 12 BUN 107 H* Creatinine 5.0 H* Estim Creat Clear Calc 27.2 L eGFR 14 L* BUN/Creatinine Ratio 21 H Glucose 96 Calculated Osmolality 316 H Lactic Acid Calcium 8.0 L Corrected Calcium 8.0 L Phosphorus 5.3 H Magnesium 2.0 Iron 9 L TIBC 186 L Iron Saturation 4 L Unsat Iron Binding 177 L Ferritin 150 Total Bilirubin 0.5 AST 16 ALT 7 L Alkaline Phosphatase 111 Troponin I 0.116 H* Total Protein 7.0 Albumin 4.2 Globulin 2.8 Albumin/Globulin Ratio 1.5 ABG Interpretation ABG results: 04/16/24 19:09 ABG pH 7.32 L ABG pCO2 39 ABG pO2 55 L* ABG HCO3 20 ABG O2 Saturation 88 L ABG Base Excess -6 L Quality Measures Quality Measures VTE prophylaxis (Heparin on hold) Assessment & Plan Assessment Current Active Medications: Generic Name Dose Route Start Last Admin Trade Name Freq PRN Reason Stop Dose Admin Acetaminophen 650 mg 04/16/24 21:30 Acetaminophen 325 Mg Tablet PO 05/16/24 21:29 Q6H PRN Fever >100 or pain 1-3 Hydrocodone Bitart/Acetaminophen 1 tab 04/17/24 00:00 04/17/24 00:10 Hydrocodone/Apap 5/325 Tablet PO 04/22/24 00:00 1 tab Q4HR PRN Administration Pain 4-6 Al Hydrox/Mg Hydrox/Simethicone 30 ml 04/17/24 17:59 04/17/24 18:12 Mg Hyd/Al Hyd/Odette (Maalox Reg) Susp 30 Ml Udc PO 05/17/24 17:58 30 ml Q4HR PRN Administration UPSET STOMACH/INDIGESTION Ciprofloxacin 500 mg 04/18/24 09:00 04/19/24 08:33 Ciprofloxacin Hcl 250 Mg Tablet PO 04/25/24 08:59 500 mg QDAY [place] Administration Dextrose 25 ml 04/17/24 07:57 Dextrose 50%-Water Inj 50 Ml Syringe IV 05/17/24 07:56 Q15MIN PRN BG 50-70 responsive npo pt Dextrose 50 ml 04/17/24 07:57 Dextrose 50%-Water Inj 50 Ml Syringe IV 05/17/24 07:56 Q15MIN PRN BG <50 OR BG <70 & pt unresponsive Furosemide 80 mg 04/17/24 06:00 04/19/24 05:09 Furosemide Inj 10 Mg/Ml 4ml Vial IVP 05/17/24 05:59 80 mg BIDD [place] Administration Glucagon 1 mg 04/17/24 07:57 Glucagon Inj 1 Mg Vial IM Q15MIN PRN BG <70, and no IV access Heparin Sodium (Porcine) 5,000 unit 04/17/24 09:00 04/19/24 08:34 Heparin Sod Inj 5000 Unit/Ml Vial SC 05/01/24 08:59 5,000 unit Q12HR [place] Administration Albumin Human 25 gm in 100 mls @ 100 mls/hr 04/16/24 21:45 04/19/24 11:46 Albuminar-25 Ivpb IV 04/19/24 21:44 100 mls/hr QID [place] Administration Levalbuterol HCl 0.63 mg 04/18/24 20:47 Levalbuterol Rt 0.63 Mg/3 Ml Nebu INH 05/18/24 20:46 Q8HR PRN WHEEZING Ondansetron HCl 4 mg 04/16/24 21:30 04/17/24 08:41 Ondansetron Inj 2 Mg/Ml Inj 2 Ml IV 05/16/24 21:29 4 mg Q6H PRN Administration NAUSEA OR VOMITING Protocol Oseltamivir Phosphate 30 mg 04/19/24 09:00 04/19/24 08:34 Oseltamivir 30 Mg Capsule PO 04/26/24 09:01 30 mg QDAY [place] Administration Pantoprazole Sodium 40 mg 04/17/24 09:00 04/19/24 08:33 Pantoprazole 40 Mg Tablet PO 05/17/24 08:59 40 mg QDAY [place] Administration Pharmacy Consult 1 each 04/18/24 10:17 Pharmacy Renal Dose Adjustment 1 Ea XX 05/18/24 10:16 PRN PRN CONSULT Sennosides 1 tab 04/17/24 08:15 04/18/24 21:48 Senna Tablet PO 05/17/24 08:14 1 tab QDAY PRN Administration CONSTIPATION Protocol Sevelamer Carbonate 800 mg 04/17/24 08:00 04/19/24 11:46 Sevelamer Carbonate 800 Mg Tablet PO 05/17/24 07:59 800 mg TIDWM [place] Administration Plan Barry Rahman is a 38-y/o male with a PMHx of nephrotic syndrome, DVT (previously on Eliquis in 2019), hypertension, morbid obesity presented on 04/16 for lower extremity/abdominal/scrotal swelling x 3 months. Noted to have been diagnosed with nephrotic syndrome 7 years ago but lost to follow-up from medicare compliance auditor, Dr. Teague, 3 years ago. Due to pain in his legs and scrotum, presented to ED. Admitted for acute renal failure. #Acute renal failure, secondary to #? Hepatorenal syndrome #? Nephrotic syndrome Presented with creatinine of 4.1, with most recent being 2.1 in 2021 and prior to that in 2018 BL appeared to be 1.5-1.6. Will proceed with albumin challenge and observe how patient responds. SAAG of 1.4 (> 1.1), indicating portal HTN as etiology of ascites. S/p placement of temporary dialysis catheter 04/19 and underwent first session of HD. ? Nephrology consulted, appreciate recommendations ? Strict I's and O's, fluid restriction ? Albumin 25 g IV 4 times daily ? Ciprofloxacin 500 mg p.o. daily (renally dosed, 04/17-) for SBP prophylaxis ? Patient has penicillin allergy ? Renally dose medications, avoid nephrotoxic agents if possible ? 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 CT A/P showed heart failure, vascular congestion, pericardial effusion, cirrhosis, and significant ascites. US scrotum: Large bilateral hydroceles with scrotal wall edema. Status post paracentesis removal of 11 L with 50 g of albumin given. No significant history of EtOH consumption or portal HTN and hepatitis panel (- ). 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 Suspect presentation may be due to cirrhosis/hepatorenal syndrome. However, liver synthetic function appears to be relatively intact as LFTs normal, plts mildly low at 116, INR 1.3, and albumin 3.6. ? Nephrology consulted, appreciate recommendations ? Lasix 80 mg IV twice daily ? Albumin 25 g IV QID ? Consider midodrine or octreotide if patient becomes hypotensive #Hyperkalemia, in setting of acute renal failure K of 5.9 on 04/18 with repeat of 6.1. EKG did not show peaked T waves. ? Breathing treatments, insulin + D50, and veltassa PRN ? Lasix as above #Hyperphosphatemia ? Sevelamer 800 mg p.o. 3 times daily #AHRF, secondary to influenza pneumonia Also presented with SOB and cough, found to be influenza positive. ? Tamiflu 30 mg twice daily (renally dosed, 04/17-) ? DuoNebs ? Wean down supplemental O2 as tolerated #Demand ischemia, NSTEMI type II in setting of #Pericadial effusion #HFpEF (echo 04/19 25-3-%) History of pericardial effusion as seen on echo in 2018 and currently has 14 mm pericardial effusion. BNP [address] showed mild-moderate enlarged cardiac contour, prominent vascular congestion and bilateral pulmonary edema. Echo 04/19: dilated cardiomyopathy with severe LV dysfunction. EF 25 to 30%. LA severely dilated, RA mildly dilated. Small pericardial effusion. ? Cardiology consulted per nephrology, appreciate recommendations #Hypertension Home hydralazine 100 mg TID -> holding due to to concern for hypotension after paracentesis ? Hold off on ISABELA and ARB's #Normocytic anemia, likely secondary to CKD ? Follow-up on iron panel and ferritin #History of DVT No blood thinner as home. D-dimer around 3000, DVT lower extremity negative. Hospital management: Disposition: pending nephrology recommendations regarding dialysis Fluids: none Diet: renal Lines: PIV DVT prophylaxis: heparin SC GI prophylaxis: pantoprazole IV Starr: placed CODE STATUS: full code ----- Plan discussed with attending physician Dr. Krause and senior resident physician Dr. Kun Loyd MD PGY-1 Internal Medicine Attending Provider Attestation/Addendum I have discussed and was present for the essential components of the history, physical examination, diagnosis, and treatment plan with the resident. I agree with the patient's care as documented by the resident and amended herein by me. Anirudh Krause DO. Although this document has been carefully reviewed, there may still be some phonetic and other typographical errors. These errors are purely grammatical due to imperfections in the software program and should not be construed in any way to compromise the substance of the patient's medical care during this visit.
--- NOTE | 2024-04-19 14:16 | ESCONSULT_ITS ---
<Statement entered by Leah Olea MD - 04/21/24 08:48> I personally examined the patient while is having dialysis along with resident physician Dr. Hahn PGY 2 patient is multiple medical problem nephrotic syndrome acute kidney injury acute chronic kidney disease undergoing dialysis today there were atrial fibrillation rapid rates with metoprolol slow down heart rate is controlled well will obtain cardiac echo and assess left-sided function continue the beta-lana to slow the heart rate as necessary expect him to improve once fluid overload is removed patient will have a cardiac echo agree with the findings tomorrow and monitor the patient closely. Reviewed the findings of consultation report all the components of the report agree with the treatment plan recommendations as documented HPI Data of Consult Requesting Physician: Jules Krause DO Admitting Provider: Chauncey Bedoya MD Attending Provider: Jules Krause DO Primary Care Provider: Physician No Primary/Family Consult Narrative History of present illness: The patient is a 38-year-old male, with a past medical history of nephrotic syndrome, CKD, cirrhosis, history of DVT 6 years ago, hypertension, who presented to the ER complaining of left lower extremity edema scrotal swelling and shortness of breath. The patient was found to have anasarca, ascites and pleural effusion, patient was admitted to the medical floor and nephrology consult for Dr Teague was placed. Started on aggressive IV diuresis, as well as paracentesis was done which drained 11 L. The patient denies a past medical history of atrial fibrillation, but complained of palpitations immediately following nebulization. EKG was done which showed heart rate in the 150s to 160s, A-fib RVR. Patient was given Lopressor 2.5 mg based improved patient's rate to low 100s. The patient has been maintaining atrial fibrillation rate controlled rhythm between 90 to 100 bpm since morning. Patient also had electrolyte abnormalities at that time due to underlying CKD, potassium more than 6, persistent hyperkalemia despite medical therapy, nephrology ordered dialysis catheter placement and starting patient on hemodialysis. Cardiology was consulted for management of CHF and arrhythmia. Past medical history: Nephrotic syndrome, CKD, hypertension, DVT 6 years ago was on Eliquis previously, now discontinued. Anasarca, cirrhosis. History of fracture right foot, history of osteomyelitis, history of diabetes mellitus. Home medications: Bumetanide 2 mg p.o. twice daily, hydralazine 100 mg p.o. 3 times daily cc:: cc: Jules Krause DO Review of Systems Review of Systems Systems Reviewed: All systems reviewed, normal except as documented Past Medical History Past Medical History NEUROLOGIC: Negative Neurological Disorders CARDIAC: Positive Cardiac Disorders, Cardiac Arrhythmia, Angina, Hypercholesterolemia, Edema, Deep Vein Thrombosis and Hypertension; Negative Congestive Heart Failure RESPIRATORY: Negative Chronic Obstructive Pulmonary Disease (COPD) or Asthma GASTROINTESTINAL: Negative Gastrointestinal Disorders or Colorectal Cancer GENITOURINARY: Positive Genitourinary Disorders and Renal Disease REPRODUCTIVE: Negative Testicular Cancer MUSCULOSKELETAL: Positive Musculoskeletal Disorders, Fractures and Osteomyelitis; Negative Bone Cancer ENT: Positive Retinal Detachment ENDOCRINE: Negative Endocrine Disorders, Diabetes Mellitus Type 1 or Diabetes Mellitus Type 2 HEMATOLOGIC: Positive Blood Disorders and Anemia; Negative Sickle Cell Disease PSYCHO/SOCIAL: Positive Depression OTHER HISTORY: Positive Hospitalization, Blood Transfusions and Chicken Pox; Negative Autoimmune Disease, Blood Transfusion Reaction, MRSA, Vancomycin- Resistant Enterococci, Colorectal Cancer, Lung Cancer or Testicular Cancer Family History FAMILY HISTORY: Positive Family Cardiac Disorders; Negative Family Psychiatric Problems, Family Respiratory Disorders, Family Gastrointestinal Problems, Family Cancer, Family Surgery or Family Anesthesia Reaction Surgical History SURGICAL: Positive Angiogram and Joint Replacement Social History SMOKING STATUS: Never smoker SUBSTANCE USE: does not use Exam Vital Signs Temp Pulse Resp BP Pulse Ox O2 Del Method O2 Flow Rate 98.6 F 99 20 155/79 H 96 Nasal Cannula 2 04/19/24 12:00 04/19/24 12:00 04/19/24 12:00 04/19/24 12:00 04/19/24 12:00 04/19/24 12:00 04/19/24 12:00 Narrative Exam General: AOx3, seen during hemodialysis, tolerating hemodialysis well, laying propped up, on room air, able to speak full sentences HEENT: NC/AT, mucous membranes moist, bilateral sclera anicteric Cardiovascular: Tachycardic, regular rhythm, S1/S2 present, no murmurs appreciated Pulmonary: Reduced air entry at bases, more prominent in the left side, likely pleural effusion. Abdominal: s/p paracentesis, distended, soft, non-tender, no rebound/guarding Musculoskeletal: 3+ bilateral lower extremity pitting edema up to lower abdomen Skin: chronic venous stasis changes in BLE Neuro: CN II-XII intact, no focal deficits Results Labs 04/19/24 05:17 04/19/24 13:27 Labs: Short CBC 04/19/24 Range/Units 05:17 WBC 5.8 (3.8-10.6) Thou/mm3 Hgb 8.7 L (13.5-16.0) g/dL Hct 28.0 L (41.0-53.0) % Plt Count 95 L (140-440) Thou/mm3 BMP 04/18/24 04/18/24 04/18/24 13:56 17:35 20:20 Sodium 142 Potassium 6.1 H* 6.2 H* 5.3 H D Chloride 109 H Carbon Dioxide 20.2 BUN 100 H Creatinine 4.8 H* Glucose 88 Calcium 8.3 04/19/24 05:17 Sodium 142 Potassium 5.4 H Chloride 108 H Carbon Dioxide 22.1 BUN 107 H* Creatinine 5.0 H* Glucose 96 Calcium 8.0 L Cardiac Enzymes 04/18/24 04/18/24 04/19/24 Range/Units 16:32 20:26 05:17 Troponin I 0.097 H* 0.102 H* 0.116 H* (0.0-0.045) ng/mL Liver Function 04/18/24 04/19/24 Range/Units 20:20 05:17 Total Bilirubin 0.5 (0.3-1.2) mg/dL AST 16 (0-34) U/L ALT 7 L (10-49) U/L Alkaline Phosphatase 111 (46-116) U/L Albumin 3.9 4.2 (3.5-5.0) gm/dL ABG Interpretation ABG results: 04/16/24 19:09 ABG pH 7.32 L ABG pCO2 39 ABG pO2 55 L* ABG HCO3 20 ABG O2 Saturation 88 L ABG Base Excess -6 L Quality Measures Quality Measures VTE prophylaxis (Heparin on hold) Medications Home Medications and Allergies Home Medications ?Medication ?Instructions ?Recorded ?Confirmed ?Type bumetanide 2 mg tablet 2 mg PO BID 01/09/22 5 History hydralazine 100 mg tablet 100 mg PO TID 01/09/2204/17 History Allergies Allergy/AdvReac Type Severity Reaction Status Date / Time iron (From Venofer) Allergy Severe Weakness Verified 01/09/22 09:21 Penicillins Allergy Severe SWELLS Verified 01/09/22 09:21 UP,DYSPNEA lactose AdvReac Intermediate Gastrointestinal Verified 04/17/24 14:38 Upset Visit Medications Acetaminophen (Acetaminophen 325 Mg Tablet) 650 mg PO Q6H PRN PRN Reason: Fever >100 or pain 1-3 Stop: 05/16/24 21:29 Hydrocodone Bitart/Acetaminophen (Hydrocodone/Apap 5/325 Tablet) 1 tab PO Q4HR PRN PRN Reason: Pain 4-6 Stop: 04/22/24 00:00 Last Admin: 04/17/24 00:10 Dose: 1 tab Al Hydrox/Mg Hydrox/Simethicone (Mg Hyd/Al Hyd/[place] (Maalox Reg) Susp 30 Ml Udc) 30 ml PO Q4HR PRN PRN Reason: UPSET STOMACH/INDIGESTION Stop: 05/17/24 17:58 Last Admin: 04/17/24 18:12 Dose: 30 ml Ciprofloxacin (Ciprofloxacin Hcl 250 Mg Tablet) 500 mg PO QDAY [facility] Stop: 04/25/24 08:59 Last Admin: 04/19/24 08:33 Dose: 500 mg Dextrose (Dextrose 50%-Water Inj 50 Ml Syringe) 25 ml IV Q15MIN PRN PRN Reason: BG 50-70 responsive npo pt Stop: 05/17/24 07:56 Dextrose (Dextrose 50%-Water Inj 50 Ml Syringe) 50 ml IV Q15MIN PRN PRN Reason: BG <50 OR BG <70 & pt unresponsive Stop: 05/17/24 07:56 Furosemide (Furosemide Inj 10 Mg/Ml 4ml Vial) 80 mg IVP BIDD [facility] Stop: 05/17/24 05:59 Last Admin: 04/19/24 05:09 Dose: 80 mg Glucagon (Glucagon Inj 1 Mg Vial) 1 mg IM Q15MIN PRN PRN Reason: BG <70, and no IV access Heparin Sodium (Porcine) (Heparin Sod Inj 5000 Unit/Ml Vial) 5,000 unit SC Q12HR [facility] Stop: 05/01/24 08:59 Last Admin: 04/19/24 08:34 Dose: 5,000 unit Albumin Human (Albuminar-25 Ivpb) 25 gm in 100 mls @ 100 mls/hr IV QID [facility] Stop: 04/19/24 21:44 Last Admin: 04/19/24 11:46 Dose: 100 mls/hr Levalbuterol HCl (Levalbuterol Rt 0.63 Mg/3 Ml Nebu) 0.63 mg INH Q8HR PRN PRN Reason: WHEEZING Stop: 05/18/24 20:46 Ondansetron HCl (Ondansetron Inj 2 Mg/Ml Inj 2 Ml) 4 mg IV Q6H PRN; Protocol PRN Reason: NAUSEA OR VOMITING Stop: 05/16/24 21:29 Last Admin: 04/17/24 08:41 Dose: 4 mg Oseltamivir Phosphate (Oseltamivir 30 Mg Capsule) 30 mg PO QDAY [facility] Stop: 04/26/24 09:01 Last Admin: 04/19/24 08:34 Dose: 30 mg Pantoprazole Sodium (Pantoprazole 40 Mg Tablet) 40 mg PO QDAY [facility] Stop: 05/17/24 08:59 Last Admin: 04/19/24 08:33 Dose: 40 mg Pharmacy Consult (Pharmacy Renal Dose Adjustment 1 Ea) 1 each XX PRN PRN PRN Reason: CONSULT Stop: 05/18/24 10:16 Sennosides (Senna Tablet) 1 tab PO QDAY PRN; Protocol PRN Reason: CONSTIPATION Stop: 05/17/24 08:14 Last Admin: 04/18/24 21:48 Dose: 1 tab Sevelamer Carbonate (Sevelamer Carbonate 800 Mg Tablet) 800 mg PO TIDWM [facility] Stop: 05/17/24 07:59 Last Admin: 04/19/24 11:46 Dose: 800 mg Discontinued Medications Albuterol (Albuterol Rt 2.5 Mg/0.5 Ml Nebu) 5 mg INH X1 ONE Stop: 04/18/24 18:42 Albuterol (Albuterol Rt 25 Mg/5 Ml Nebu) 15 mg INH X1 ONE Stop: 04/18/24 18:59 Albuterol (Albuterol Rt 2.5 Mg/0.5 Ml Nebu) 15 mg INH X1 ONE Stop: 04/18/24 19:07 Last Admin: 04/18/24 19:26 Dose: 15 mg Albuterol/Ipratropium (Albuterol/Ipratropium (Duoneb) Rt Carol 3 Ml Nebu) 3 ml INH X1 ONE Stop: 04/16/24 21:30 Last Admin: 04/16/24 21:52 Dose: 3 ml Albuterol/Ipratropium (Albuterol/Ipratropium (Duoneb) Rt Carol 3 Ml Nebu) 3 ml INH Q6HRRT PRN PRN Reason: sob Stop: 05/17/24 00:59 Albuterol/Ipratropium (Albuterol/Ipratropium (Duoneb) Rt Carol 3 Ml Nebu) 3 ml INH X1 ONE Stop: 04/17/24 08:25 Last Admin: 04/17/24 08:38 Dose: 3 ml Albuterol/Ipratropium (Albuterol/Ipratropium (Duoneb) Rt Carol 3 Ml Nebu) 3 ml INH X1 ONE Stop: 04/17/24 16:02 Last Admin: 04/17/24 16:22 Dose: 3 ml Calcium Carbonate (Calcium Carbonate 600 Mg Tablet) 600 mg PO X1 ONE Stop: 04/19/24 08:18 Last Admin: 04/19/24 08:33 Dose: 600 mg Calcium Gluconate (Calcium Gluconate 10% Inj 1 Gm/10 Ml Vial) 1 gm IV X1 ONE Stop: 04/18/24 18:44 Last Admin: 04/18/24 19:27 Dose: 1 gm Dextrose (Dextrose 50%-Water Inj 50 Ml Syringe) 25 ml IV Q15MIN PRN PRN Reason: BG 50-70 responsive npo pt Stop: 05/16/24 20:02 Dextrose (Dextrose 50%-Water Inj 50 Ml Syringe) 50 ml IV Q15MIN PRN PRN Reason: BG <50 OR BG <70 & pt unresponsive Stop: 05/16/24 20:02 Dextrose (Dextrose 50%-Water Inj 50 Ml Syringe) 50 ml IV X1 ONE Stop: 04/16/24 21:30 Last Admin: 04/16/24 21:41 Dose: 50 ml Dextrose (Dextrose 50%-Water Inj 50 Ml Syringe) 50 ml IV X1 ONE Stop: 04/18/24 23:38 Last Admin: 04/18/24 23:56 Dose: 50 ml Furosemide (Furosemide Inj 10 Mg/Ml 4ml Vial) 80 mg IVP X1 ONE Stop: 04/16/24 18:52 Last Admin: 04/16/24 19:29 Dose: 80 mg Glucagon (Glucagon Inj 1 Mg Vial) 1 mg IM Q15MIN PRN PRN Reason: BG <70, and no IV access Dextrose (D10w 1000 Ml) 1,000 mls @ 100 mls/hr IV .Q10H [place] Stop: 04/17/24 06:14 Last Admin: 04/16/24 21:34 Dose: Not Given Ceftriaxone Sodium 1,000 mg/ (Sodium Chloride) 50 mls @ 100 mls/hr IV QDAY [place] Stop: 04/24/24 06:29 Last Admin: 04/17/24 07:34 Dose: Not Given Ciprofloxacin/Dextrose (Cipro Ivpb) 400 mg in 200 mls @ 200 mls/hr IV Q12HR [place] Stop: 04/24/24 08:14 Last Infusion: 04/17/24 10:47 Dose: Infused Albumin Human (Albuminar-25 Ivpb) 25 gm in 100 mls @ 100 mls/hr IV Q1H [facility] Stop: 04/17/24 17:41 Last Admin: 04/17/24 17:36 Dose: 100 mls/hr Albumin Human (Albuminar-25 Ivpb) 25 gm in 100 mls @ 100 mls/hr IV X1 ONE Stop: 04/17/24 16:42 Last Admin: 04/17/24 17:59 Dose: Not Given Insulin Human Regular (Insulin Hum Regular 1 Unit/0.01 Ml (Per Unit)) 5 unit IV X1 ONE Stop: 04/16/24 20:04 Last Admin: 04/16/24 21:41 Dose: 5 unit Insulin Human Regular (Insulin Hum Regular 1 Unit/0.01 Ml (Per Unit)) 5 unit IV X1 ONE Stop: 04/18/24 23:38 Last Admin: 04/18/24 23:57 Dose: 5 unit Levalbuterol HCl (Levalbuterol Rt 0.63 Mg/3 Ml Nebu) 0.63 mg INH X1 ONE Stop: 04/19/24 08:14 Last Admin: 04/19/24 08:28 Dose: 0.63 mg Metoprolol Tartrate (Metoprolol Tartrate Inj 1 Mg/Ml Amp 5 Ml) 2.5 mg IVP X1 ONE Stop: 04/18/24 20:49 Last Admin: 04/18/24 20:59 Dose: 2.5 mg Morphine Sulfate (Morphine Sulf Inj 10 Mg/Ml Vial) 2 mg IVP X1 ONE Stop: 04/16/24 18:52 Last Admin: 04/16/24 19:30 Dose: 2 mg Nitroglycerin (Nitroglycerin Oint 2% 1 Inch Packet) 2 inch TOP X1 ONE Stop: 04/16/24 18:52 Last Admin: 04/16/24 19:28 Dose: 2 inch Oseltamivir Phosphate (Oseltamivir 30 Mg Capsule) 30 mg PO BID [place] Stop: 04/21/24 21:01 Last Admin: 04/17/24 21:15 Dose: 30 mg Oseltamivir Phosphate (Oseltamivir 75 Mg Capsule) 75 mg PO X1 ONE Stop: 04/17/24 10:46 Last Admin: 04/17/24 11:41 Dose: 75 mg Pantoprazole Sodium (Pantoprazole Inj 40 Mg Vial) 40 mg IV QDAY [place] Stop: 05/17/24 17:59 Last Admin: 04/17/24 18:12 Dose: 40 mg Patiromer (Patiromer Calcium 8.4 Gm Packet (Non-Form)) 8.4 gm PO X1 ONE Stop: 04/18/24 15:31 Last Admin: 04/18/24 15:53 Dose: 8.4 gm Sodium Bicarbonate (Sodium Bicarb Inj 8.4% Syr 50 Ml Syringe) 50 ml IV X1 ONE Stop: 04/18/24 18:44 Last Admin: 04/18/24 19:27 Dose: 50 ml Sodium Chloride (Sodium Chloride Rt Carol 0.9% 3 Ml Nebu) 3 ml INH PRN PRN PRN Reason: SOLN Stop: 05/18/24 19:05 Tuberculin PPD (Tuberculin Ppd Inj 5 Unit/0.1 Ml Dose) 5 unit ID X1 ONE Stop: 04/19/24 13:48 Assessment & Plan Plan The patient is a 38-year-old male, with a past medical history of nephrotic syndrome, CKD, cirrhosis, history of DVT 6 years ago, hypertension, who presented to the ER complaining of left lower extremity edema scrotal swelling and shortness of breath. The patient was found to have anasarca, ascites and pleural effusion, patient was admitted to the medical floor and nephrology consult for Dr Teague was placed. Started on aggressive IV diuresis, as well as paracentesis was done which drained 11 L. The patient denies a past medical history of atrial fibrillation, but complained of palpitations immediately following nebulization. EKG was done which showed heart rate in the 150s to 160s, A-fib RVR. Patient was given Lopressor 2.5 mg based improved patient's rate to low 100s. The patient has been maintaining atrial fibrillation rate controlled rhythm between 90 to 100 bpm since morning. Patient also had electrolyte abnormalities at that time due to underlying CKD, potassium more than 6, persistent hyperkalemia despite medical therapy, nephrology ordered dialysis catheter placement and starting patient on hemodialysis. Cardiology was consulted for management of CHF and arrhythmia. Past medical history: Nephrotic syndrome, CKD, hypertension, DVT 6 years ago was on Eliquis previously, now discontinued. Anasarca, cirrhosis. History of fracture right foot, history of osteomyelitis, history of diabetes mellitus. Home medications: Bumetanide 2 mg p.o. twice daily, hydralazine 100 mg p.o. 3 times daily Problems: 1. Paroxysmal atrial fibrillation?rate controlled Patient denied a prior medical history of palpitations or atrial fibrillation, EKG on admission showed A-fib with incomplete BBB on 04/16/2024, apparently patient has been going in and out of A-fib, EKG on 04/18/2024 showed patient was in sinus rhythm, A-fib RVR heart rate in the 150s to 160s on 04/18/2024, following nebulization, responded to low-dose beta-blockade, at the time of evaluation today, patient's rhythm continued slipping in and out of atrial fibrillation, rate controlled and reverted into sinus rhythm. ? Metoprolol succinate 50 mg daily, monitor for hypotension. ?[id number] score is 2, given patient's relatively young age and low CHA2DS score can defer anticoagulation at a later time. 2. HFrEF secondary to dilated cardiomyopathy Echocardiogram shows finding consistent with dilated cardiomyopathy, grade 3 diastolic dysfunction. restrictive filling pattern, estimated EF 25 to 30%, severely increased left atrial volume. Urine output 500 mL with 24 hours, despite 80 mg IV Lasix twice daily. Started on hemodialysis by nephrology. Patient does seem to be on the heavier side 122 kg, likely significant water weight secondary to anasarca. Physical exam pertinent for bilateral pleural effusions. ? Continue with short intermittent hemodialysis , UF goal 1500 mL for today ? Metoprolol succinate 50 mg daily, monitor for hypotension,, slowly introduce rest of GDMT as tolerated. 3. Hyperkalemia Failure to respond to hyperkalemia cocktail, persistent hyperkalemia despite medical therapy, initiated hemodialysis. 4. Type II RI Troponin elevation in the setting of A-fib RVR, likely supply/demand mismatch leading to troponin elevation, The patient denied any chest pain, or orthopnea or diaphoresis, continue with medical management. Plan of care discussed with wax pattern assembler Dr. Geo Olea. Jovani PGY2
[2024-04-19] MEDS: fentaNYL CIT INJ 50 mCg/ML AMP 2ML IVP (14:40)
[2024-04-19 14:44] LABS: Anion Gap 11 (7-16); BUN/Creatinine Ratio 20 Ratio (12-20); Calcium 7.9 mg/dL (8.3-10.6); Chloride 107 mMol/L (98-107); Creatinine (Component) 5.2 mg/dL (0.6-1.3); Estimated Creatinine Clearance 26.1 mL/min (>60); Glucose 90 mg/dL (74-106); Osmolality,Calculated 307 (275-295); Sodium 138 mMol/L (136-145); eGFR 14 See Note
[2024-04-19 14:46] LABS: Blood Urea Nitrogen 102 mg/dL (9-23)
[2024-04-19] MEDS: LIDOCAINE INJ PF 1% 30 ML VIAL 8 ML INFL (14:52)
[2024-04-19 15:19] LABS: Hepatitis A Antibody IgM Non Reactive (Non React); Hepatitis B Core Antibody IgM Non Reactive (Non React); Hepatitis B Surface Antigen Non Reactive (Non React); Hepatitis C Antibody Non Reactive (Non React)
--- NOTE | 2024-04-19 15:57 | PC.NURSE ---
1513 patient is awake, alert, breathing unlabored, s/p temporary dialysis catheter insertion by dr Dennison to right IJ, dressing has small, amount of drainage, no active bleeding, report given to Dayron CONNOR, patient transferred back to room 275 with tele box.
--- NOTE | 2024-04-19 19:16 | PC.NURSE ---
1st dialysis tx completed for 2 hrs, tolerated well. Pt no complaint of pain. Respiration even and unlabored. Sating at 98% on O2 at 2L/min via nc.? Able to removed 1400 ml of fluid net.? Post tx BP 146/89, HR 83, Temp 97.8.? Pt back in his room.? Call light within reached. Report given to Jocelyn CONNOR.
[2024-04-19] MEDS: TUBERCULIN PPD INJ 5 UNIT/0.1 ML DOSE ID (19:44)
[2024-04-20] VITALS (25 sets, daily range): BP systolic 116–156; BP diastolic 71–110; PULSE 72–108; RESP 17–30; TEMP 36.3–37.3; O2SAT 92–98; BMI 35.5; BMI 35.6
--- NOTE | 2024-04-20 00:07 | ESPR_ITS ---
RE: ALLI [place] : 1985 DATE OF SERVICE: 04/19/2024 HISTORY OF PRESENT ILLNESS: This patient is a 38-year-old -[place] gentleman with type 2 diabetes since he was 24 years old with nephrotic syndrome whose proteinuria way back in 2018 was 8.8 g, right leg DVT, hypertension, morbid obesity, fatty liver, who presented to the emergency room on 04/17/2023 with anasarca. The patient was also very weak and was short of breath and was found with positive influenza B. Upon admission, the patient was found with a BUN of 98 and a creatinine of 4.1. He also had a large volume paracentesis while in the hospital. The patient was found with liver cirrhosis on CT of the abdomen and pelvis without IV contrast. He was also started on IV Lasix. Despite Lasix and some urine output, the patient remained very volume overloaded. Potassium level is also difficult to contain. The patient also has been hypoxic when he presented. His chest x-ray also confirmed vascular congestion. The BUN felecia to 102 with a creatinine of 5.2. His urine output also dwindled. CURRENT MEDICATIONS: 1. Acetaminophen. 2. Albuterol inhaler. 3. Ciprofloxacin 500 mg p.o. daily. 4. Lasix 80 mg IV b.i.d. 5. Heparin 5000 units sc bid 6. Tamiflu 30 mg p.o. daily. 7. Ondansetron 4 mg IV every 6 hours. 8. Metoprol PHYSICAL EXAMINATION: General: He is awake, alert, mother by the bedside. Vital Signs: Blood pressure of 131/100, heart rate of 108, O2 saturation of 97% on two liters of nasal cannula. HEENT: Anicteric sclerae. Normocephalic. Neck: Supple. No JVD. Chest and Lungs: Normal expansion. Decreased breath sounds bilaterally. Heart: Without murmur. Abdomen: Soft with moderate ascites. Extremities: 3+ bilateral pitting edema. LABORATORY DATA: Hemoglobin 8.7, WBC 5,800, platelet count 95,000. Sodium 138, potassium 5, chloride 107, CO2 20, BUN 102, creatinine 5.2, glucose 90, calcium 8, phosphorus 5.3. ASSESSMENT: 1. Stage V chronic kidney disease secondary to diabetic nephropathy most likely has progressed to end-stage renal disease. 2. Morbid obesity. 3. Anasarca secondary to liver cirrhosis and nephrotic syndrome and kidney failure. 4. Type 2 diabetes. 5. Hypertension. 6. Anemia of chronic disease. 7. Hyperkalemia secondary to advanced chronic disease. 8. Positive influenza B. 9. History of fatty liver, which progressed to liver cirrhosis. 10. Hypoxia. 11. Vascular congestion. 12. Elevated troponin level, most likely secondary to CHF or volume overload. PLAN: I believe that the patient has progressed to end-stage renal disease given his past medical history of chronic kidney disease way back in 2018. At this point, given that he continues to be volume overloaded despite diuretics and worsening hyperkalemia, the patient was offered dialysis. The patient consented for dialysis and as such, dialysis will start as soon as we have a temporary dialysis catheter in place. Later on, the patient will need a tunneled dialysis catheter. Risks of infection, bleeding, and low blood pressure during dialysis were discussed with him and his mother and they verbally consented and understood and as such, we will proceed with placement of non-tunneled dialysis catheter for the day and later on permanent tunnelled dialysis catheter. I will also consult on-call general milling superintendent given an episode of severe tachycardia earlier today. The patient also has been tachycardic since admitted. I also ordered an 2D echocardiogram to assess his LVEF. The patient will be continued on dialysis for the next 3 days in increment doses. After that, he will be placed at [facility] for chronic dialysis needs. DT: 22:33:13 TT: 23:57:00 Ref: [id number] - TID: [id number] [facility]
[2024-04-20] MEDS: HYDROcodone/APAP 5/325 TABLET 1 TAB PO (00:23)
[2024-04-20 06:04] LABS: Basophils % (Auto) 0 % (0-2.5); Eosinophils # (Auto) 0.1 Thou/mm3 (0.0-0.5); Eosinophils % (Auto) 2 % (0-10); Immature Granulocytes % (Auto) 0 % (0-0); Immature Granulocytes Auto 0.02 Thou/mm3 (0.00-0.00); Lymphocytes # (Auto) 0.9 Thou/mm3 (1.0-4.8); Lymphocytes % (Auto) 17 % (10-50); Mean Corpuscular HGB Conc 31.1 g/dl (31.0-37.0); Mean Corpuscular Hemoglobin 27.3 pg (25.0-35.0); Mean Corpuscular Volume 88 fL (80-100); Monocytes # (Auto) 0.4 Thou/mm3 (0.0-0.8); Monocytes % (Auto) 8 % (0-12); Neutrophils # (Auto) 3.8 Thou/mm3 (1.8-7.7); Neutrophils % (Auto) 73 % (37-80); Nucleated Red Blood Cell % 0 /100 WBC (0); Red Blood Count 3.19 Miln/mm3 (4.50-5.90); White Blood Count 5.3 Thou/mm3 (3.8-10.6)
[2024-04-20 06:14] LABS: Hemoglobin 8.7 g/dL (13.5-16.0)
[2024-04-20 06:33] LABS: Slide Review Platelets confirmed
[2024-04-20 07:02] LABS: Alanine Aminotransferase < 7 U/L (10-49); Albumin, Serum 3.6 gm/dL (3.5-5.0); Albumin/Globulin Ratio 1.4 (1.2-2.2); Alkaline Phosphatase 103 U/L (46-116); Anion Gap 8 (7-16); Aspartate Amino Transferase 16 U/L (0-34); BUN/Creatinine Ratio 18 Ratio (12-20); Bilirubin,Total 0.7 mg/dL (0.3-1.2); Blood Urea Nitrogen 86 mg/dL (9-23); Calcium 8.1 mg/dL (8.3-10.6); Calcium (Corrected) 8.4 mg/dL (8.5-10.1); Chloride 106 mMol/L (98-107); Creatinine (Component) 4.7 mg/dL (0.6-1.3); Estimated Creatinine Clearance 28.9 mL/min (>60); Globulin 2.6 gm/dL (2.3-3.5); Glucose 93 mg/dL (74-106); Magnesium 2.1 mg/dL (1.6-2.6); Osmolality,Calculated 305 (275-295); Phosphorous 5.1 mg/dL (2.4-5.1); Potassium 5.4 mMol/L (3.4-5.1); Sodium 140 mMol/L (136-145); Total Protein 6.2 gm/dL (5.7-8.2); eGFR 15 See Note
[2024-04-20 08:39] LABS: Platelet Count 51 Thou/mm3 (140-440)
[2024-04-20] MEDS: HEPARIN SOD INJ 1000 UNIT/ML VIAL 10 ML 2500 UNIT INDWELLCAT (10:36)
--- NOTE | 2024-04-20 11:42 | PC.NURSE ---
Called Dr. Robin, plt [phone], ordered to hold heparin.
[2024-04-20] MEDS: SEVELAMER CARBONATE 800 MG TABLET PO ×2 (11:49→18:48)
[2024-04-20] MEDS: CIPROFLOXACIN HCL 250 MG TABLET 500 MG PO (11:49)
[2024-04-20] MEDS: PANTOPRAZOLE 40 MG TABLET PO (11:50)
[2024-04-20] MEDS: METOPROLOL SUCCINATE XL 25 MG TABCR 50 MG PO (11:50)
[2024-04-20] MEDS: OSELTAMIVIR 30 MG CAPSULE PO (11:50)
--- NOTE | 2024-04-20 13:56 | ESPR_ITS ---
<Statement entered by Rod Robin MD - 04/20/24 16:25> Patient was seen and examined at the bedside. Patient underwent dialysis x 2 yesterday and today morning. Patient was having stable vitals. No acute overnight events were reported. Echocardiogram showed EF 25-30% with dilated cardiomyopathy. Food Safety Coordinator recommended that we will continue with dialysis and most likely patient will need to have tunneled dialysis catheter placed tomorrow. PPD was ordered. Additionally, assistant attorney general was consulted who recommended to slowly add goal-directed medical therapy the patient's medication list as we have to monitor for blood pressure. And renal function consistent with ESRD. Will continue with fluid management as well. Will continue with ciprofloxacin for SBP prophylaxis. All labs and orders were reviewed. I saw and examined the patient, and I agree with current management stated by Dr Evert MD,PGY1. Plan of care was discussed with the attending physician and resident physician. Disclaimer: Despite multiple revisions, due to the dictation software being used, the document bellow may not be free of grammatical errors including phonetic/typographic errors. However, this does not deter from our commitment to providing health care in the patient's best interest in mind. Dr. Sharda MD, PGY 2 Documentation for date of: 04/20/24 Subjective Subjective Interval history: Barry Rahman is a 38-y/o male with a PMHx of nephrotic syndrome, DVT (previously on Eliquis in 2019), hypertension, morbid obesity presented on 04/16 for lower extremity/abdominal/scrotal swelling x 3 months. Noted to have been diagnosed with nephrotic syndrome 7 years ago but lost to follow-up from worship leader, Dr. Teague, 3 years ago. Due to pain in his legs and scrotum, presented to ED. Admitted for acute renal failure. 04/17: ICU team was consulted for paracentesis removed 11 L and then given 50 g of albumin afterwards (received 25 g in a.m. and additional 25 at night). Started on Lasix 80 mg IV but evening dose held due to concern for hypotension. Given allergy to penicillins, antibiotic switched to ciprofloxacin for SBP prophylaxis. Strict I's and O's, fluid restriction, and nephrology following. If patient comes hypotensive, consider midodrine or octreotide. Scrotal ultrasound showed bilateral hydroceles. Sevelamer given for hyperphosphatemia. 04/18: Seen and examined at bedside in telemetry. No acute overnight events reported. Denies any fevers, chest discomfort, shortness of breath, or abdominal pain after large-volume paracentesis previous day. Continues to have good urine output of 900 cc in 24 hours as of afternoon. However, renal function continues to decline with BUN 105, creatinine 4.8, GFR 15. Patient spoke to Dr. Teague on 04/17 who stated that she will try and see the patient today but if not we will have to see him on Friday. Spoke to patient about possibility of dialysis given that renal function has not improved with albumin challenge. Phosphorus continues to be high on sevelamer 800 mg p.o. 3 times daily. Potassium noted to increase from 5.2-5.9 and repeat showed potassium of 6.1 so we will give [place] 8.4 g x 1, breathing treatment x 1, and repeat potassium later to see if insulin is indicated. However, will be cautious given with insulin given renal failure. 04/19: Seen and examined at bedside in telemetry. Noted to have RR at 4 HR up to 160s with associated palpitations but no shortness of breath, chest pain, or lightheadedness. SBP in 130s and given Lopressor 2.5 mg IV. Upon evaluation, patient did not endorse any symptoms. Continues to have good UOP with total of 900 cc on 04/18. Potassium noted to be 5.4 in a.m. after receiving albuterol and insulin overnight. Will give another breathing treatment and repeat BMP in afternoon showed potassium of 5.0. However, renal function has not been improving with albumin with BUN of 102 and creatinine 5.2. Called Dr. Teague who stated that patient will require urgent dialysis and spoke to patient and family who are in agreemtn. Thus, temporary dialysis catheter placed and plans for first session tomorrow morning. Otherwise, calcium repleted and will stop trending troponin given decreased kidney function and that it is likely not clearing. 04/20: Seen and examined at bedside while undergoing dialysis, tolerating well. This is patient's second session in total and planned for third tomorrow. Additionally, plans for placement of TDC tomorrow as well and thus will keep patient n.p.o. after midnight. After third session, will continue dialysis at [facility] [place] for chronic dialysis needs. Cardiology consulted and recommends 50 mg of metoprolol daily for A-fib and the heart rate has been rate controlled in 70s and 80s. Exam Vital Signs Temp Pulse Resp BP Pulse Ox O2 Del Method O2 Flow Rate 97.8 F 108 H 17 119/96 H 98 Nasal Cannula 3 04/20/24 10:59 04/20/24 11:50 04/20/24 10:59 04/20/24 11:50 04/20/24 10:59 04/20/24 08:00 04/20/24 10:59 Narrative Exam General: AOx3, seen during hemodialysis and tolerating well, able to speak full sentences HEENT: temporary dialysis catheter in right IJ, NC/AT, mucous membranes moist, bilateral sclera anicteric Cardiovascular: Tachycardic, regular rhythm, S1/S2 present, no murmurs appreciated Pulmonary: clear to auscultation bilaterally, no rales/rhonchi/wheezes Abdominal: s/p paracentesis, distended, soft, non-tender, no rebound/guarding Musculoskeletal: 3+ bilateral lower extremity pitting edema up to lower abdomen Skin: chronic venous stasis changes in BLE Neuro: CN II-XII intact, no focal deficits Objective Labs 04/20/24 05:25 04/20/24 05:25 Labs: Laboratory Results - last 24 hr 04/19/24 04/19/24 04/20/24 13:27 14:18 05:25 WBC 5.3 RBC 3.19 L Hgb 8.7 L Hct 28.0 L MCV 88 MCH 27.3 MCHC 31.1 RDW Std Deviation 52.0 H Plt Count 51 L D Neut % (Auto) 73 Lymph % (Auto) 17 Ward % (Auto) 8 Eos % (Auto) 2 Baso % (Auto) 0 Neut # (Auto) 3.8 Lymph # (Auto) 0.9 L Ward # (Auto) 0.4 Eos # (Auto) 0.1 Baso # (Auto) 0.0 Immature Gran # (Auto) 0.02 H Absolute Nucleated RBC 0.00 Immature Gran % 0 Nucleated RBC % 0 Sodium 138 140 Potassium 5.0 5.4 H Chloride 107 106 Carbon Dioxide 20.0 26.0 Anion Gap 11 8 BUN 102 H* 86 H Creatinine 5.2 H* 4.7 H* D Estim Creat Clear Calc 26.1 L 28.9 L eGFR 14 L* 15 L BUN/Creatinine Ratio 20 18 Glucose 90 93 Calculated Osmolality 307 H 305 H Calcium 7.9 L 8.1 L Corrected Calcium 8.4 L Phosphorus 5.1 Magnesium 2.1 Total Bilirubin 0.7 AST 16 ALT < 7 L Alkaline Phosphatase 103 Total Protein 6.2 Albumin 3.6 D Globulin 2.6 Albumin/Globulin Ratio 1.4 Hepatitis A IgM Ab Non Reactive Hep Bs Antigen Non Reactive Hep B Core IgM Ab Non Reactive Hepatitis C Antibody Non Reactive Misc Test Result Platelets confirmed ABG Interpretation ABG results: 04/16/24 19:09 ABG pH 7.32 L ABG pCO2 39 ABG pO2 55 L* ABG HCO3 20 ABG O2 Saturation 88 L ABG Base Excess -6 L Quality Measures Quality Measures VTE prophylaxis (Heparin on hold) Assessment & Plan Assessment Current Active Medications: Generic Name Dose Route Start Last Admin Trade Name Freq PRN Reason Stop Dose Admin Acetaminophen 650 mg 04/16/24 21:30 Acetaminophen 325 Mg Tablet PO 05/16/24 21:29 Q6H PRN Fever >100 or pain 1-3 Hydrocodone Bitart/Acetaminophen 1 tab 04/17/24 00:00 04/20/24 00:23 Hydrocodone/Apap 5/325 Tablet PO 04/22/24 00:00 1 tab Q4HR PRN Administration Pain 4-6 Al Hydrox/Mg Hydrox/Simethicone 30 ml 04/17/24 17:59 04/17/24 18:12 Mg Hyd/Al Hyd/Odette (Maalox Reg) Susp 30 Ml Udc PO 05/17/24 17:58 30 ml Q4HR PRN Administration UPSET STOMACH/INDIGESTION Ciprofloxacin 500 mg 04/18/24 09:00 04/20/24 11:49 Ciprofloxacin Hcl 250 Mg Tablet PO 04/25/24 08:59 500 mg QDAY [place] Administration Dextrose 25 ml 04/17/24 07:57 Dextrose 50%-Water Inj 50 Ml Syringe IV 05/17/24 07:56 Q15MIN PRN BG 50-70 responsive npo pt Dextrose 50 ml 04/17/24 07:57 Dextrose 50%-Water Inj 50 Ml Syringe IV 05/17/24 07:56 Q15MIN PRN BG <50 OR BG <70 & pt unresponsive Glucagon 1 mg 04/17/24 07:57 Glucagon Inj 1 Mg Vial IM Q15MIN PRN BG <70, and no IV access Heparin Sodium (Porcine) 5,000 unit 04/17/24 09:00 04/20/24 11:47 Heparin Sod Inj 5000 Unit/Ml Vial SC 05/01/24 08:59 Not Given Q12HR FLORENCE Heparin Sodium (Porcine) 2,500 unit 04/19/24 18:16 04/20/24 10:36 Heparin Sod Inj 1000 Unit/Ml Vial 10 Ml INDWELLCAT 05/03/24 18:15 2,500 unit X1 PRN Administration DIALYSIS Levalbuterol HCl 0.63 mg 04/18/24 20:47 Levalbuterol Rt 0.63 Mg/3 Ml Nebu INH 05/18/24 20:46 Q8HR PRN WHEEZING Metoprolol Succinate 50 mg 04/20/24 09:00 04/20/24 11:50 Metoprolol Succinate Xl 25 Mg Tabcr PO 05/20/24 08:59 50 mg QDAY [place] Administration Ondansetron HCl 4 mg 04/16/24 21:30 04/17/24 08:41 Ondansetron Inj 2 Mg/Ml Inj 2 Ml IV 05/16/24 21:29 4 mg Q6H PRN Administration NAUSEA OR VOMITING Protocol Oseltamivir Phosphate 30 mg 04/19/24 09:00 04/20/24 11:50 Oseltamivir 30 Mg Capsule PO 04/26/24 09:01 30 mg QDAY [place] Administration Pantoprazole Sodium 40 mg 04/17/24 09:00 04/20/24 11:50 Pantoprazole 40 Mg Tablet PO 05/17/24 08:59 40 mg QDAY FL[place] Administration Pharmacy Consult 1 each 04/18/24 10:17 Pharmacy Renal Dose Adjustment 1 Ea XX 05/18/24 10:16 PRN PRN CONSULT Sennosides 1 tab 04/17/24 08:15 04/18/24 21:48 Senna Tablet PO 05/17/24 08:14 1 tab QDAY PRN Administration CONSTIPATION Protocol Sevelamer Carbonate 800 mg 04/17/24 08:00 04/20/24 11:49 Sevelamer Carbonate 800 Mg Tablet PO 05/17/24 07:59 800 mg TIDWM FLOR[place] Administration Plan Barry Rahman is a 38-y/o male with a PMHx of nephrotic syndrome, DVT (previously on Eliquis in 2019), hypertension, morbid obesity presented on 04/16 for lower extremity/abdominal/scrotal swelling x 3 months. Noted to have been diagnosed with nephrotic syndrome 7 years ago but lost to follow-up from worship leader, Dr. Teague, 3 years ago. Due to pain in his legs and scrotum, presented to ED. Admitted for acute renal failure. #Acute renal failure, secondary to #? Hepatorenal syndrome #? Nephrotic syndrome #Hyperphosphatemia #Hyperkalemia #Hypocalcemia #Anasarca Presented with creatinine of 4.1, with most recent being 2.1 in 2021 and prior to that in 2018 BL appeared to be 1.5-1.6. Attempted albumin challenge and no improvement in renal function. SAAG of 1.4 (> 1.1), indicating portal HTN as etiology of ascites. S/p placement of temporary dialysis catheter 04/19 and has undergone 2 sessions, 04/19 and 04/20, and is tolerated well. Plan for dialysis for 3 days straight and increment doses and afterwards will be placed at dialysis center at [place] for chronic dialysis needs. ? Nephrology consulted, appreciate recommendations ? Originally planned for placement of TDC today but will have to reschedule for tomorrow ? N.p.o. after midnight ? Ciprofloxacin 500 mg p.o. daily (renally dosed, 04/17-) for SBP prophylaxis ? Patient has penicillin allergy ? Albumin and lasix discontinued ? Peritoneal fluid culture negative ? Sevelamer 800 mg p.o. 3 times daily ? Renally dose medications, avoid nephrotoxic agents if possible #Proximal atrial fibrillation, rate controlled #HFrEF (EF 25-30%), secondary to dilated cardiomyopathy #Demand ischemia, NSTEMI type II #Pericadial effusion History of pericardial effusion as seen on echo in 2018 and currently has 14 mm pericardial effusion. BNP [address] showed mild-moderate enlarged cardiac contour, prominent vascular congestion and bilateral pulmonary edema. Echo 04/19: dilated cardiomyopathy with severe LV dysfunction. EF 25 to 30%. LA severely dilated, RA mildly dilated. Small pericardial effusion. Cardiology consulted for elevated heart rate after nebulization and DuoNebs changed to levalbuterol. Responded to low-dose beta-blockade and goes in and out of atrial fibrillation. ? Recommend metoprolol succinate 50 mg daily ? 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 CT A/P showed heart failure, vascular congestion, pericardial effusion, cirrhosis, and significant ascites. US scrotum: Large bilateral hydroceles with scrotal wall edema. Status post paracentesis removal of 11 L with 50 g of albumin given. No significant history of EtOH consumption or portal HTN and hepatitis panel (- ). 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 Suspect presentation may be due to cirrhosis/hepatorenal syndrome. However, liver synthetic function appears to be relatively intact as LFTs normal, plts mildly low at 116, INR 1.3, and albumin 3.6. #AHRF, secondary to influenza pneumonia Also presented with SOB and cough, found to be influenza positive. ? Tamiflu 30 mg twice daily (renally dosed, 04/17-) ? DuoNebs ? Wean down supplemental O2 as tolerated #Hypertension Home hydralazine 100 mg TID -> holding due to to concern for hypotension after paracentesis ? Hold off on ISABELA and ARB's #Normocytic anemia, likely secondary to CKD ? Follow-up on iron panel and ferritin #History of DVT No blood thinner as home. D-dimer around 3000, DVT lower extremity negative. Hospital management: Disposition: pending placement of TDC on 04/21 Fluids: none Diet: renal Lines: PIV DVT prophylaxis: heparin SC GI prophylaxis: pantoprazole IV Starr: placed CODE STATUS: full code ----- Plan discussed with attending physician Dr. Krause and senior resident physician Dr. Sharda Loyd MD PGY-1 Internal Medicine Attending Provider Attestation/Addendum I have discussed and was present for the essential components of the history, physical examination, diagnosis, and treatment plan with the resident. I agree with the patient's care as documented by the resident and amended herein by me. Anirudh Krause, DO. Patient seen and evaluated this AM. No acute events overnight, vital signs stable, patient afebrile, patient did receive hemodialysis last night with 1 L UF. Vital signs stable, patient afebrile overnight, patient presently on NC 3 L, SpO2 98%, I's/O720/700. Significant labs include a stable hemoglobin 8.7, platelet count 51, sodium 140, potassium 5.4, BUN 86 and a downtrending creatinine of 4.7 today. Patient will undergo another round of dialysis today, per nephrology, will continue hemodialysis for 3 days straight, temporary dialysis catheter placed, echo was performed which unfortunately demonstrated dilated cardiomyopathy with severe LV dysfunction with an LVEF of 25-30%, the patient's left atrium was severely dilated, RA is mildly dilated, mild MAC with mild MR, mild TR and a small pericardial effusion was noted. Cardiology has been consulted. Will continue the patient on albumin at this time, Cipro also on board for SBP prophylaxis and Tamiflu renally dosed as the patient was positive for influenza. Appreciate nephrology and cardiology recommendations. Although this document has been carefully reviewed, there may still be some phonetic and other typographical errors. These errors are purely grammatical due to imperfections in the software program and should not be construed in any way to compromise the substance of the patient's medical care during this visit.
--- NOTE | 2024-04-20 14:13 | ESPR_ITS ---
<Statement entered by Leah Olea MD - 04/21/24 08:50> I personally examined the patient appears to be doing better A-fib rate is controlled well remains in atrial fibrillation patient has a low ejection fraction HFrEF possible cardiomyopathy nonischemic most likely with left atrial enlargement possibly causing atrial fibrillation. Continue dialysis and removal of the fluid patient may convert to sinus rhythm considering patient has cirrhosis of the liver and ascites and multiple problems not considering amiodarone and other antiarrhythmic drug therapy not indicated at this time. For now rate control strategy to control the heart rate with metoprolol succinate. Subsequently patient may require workup for underlying cardiomyopathy but for now atrial fibrillation rate control will be instituted [id number] score is less than 2 hence no need for anticoagulation reviewed the findings of PGY2 resident physician agree with the treatment plan recommendation as documented Documentation for date of: 04/20/24 Subjective Subjective Interval history: The patient is evaluated the bedside, resting comfortably in bed, propped up, on 2 L nasal cannula oxygen, reports feeling better compared to yesterday following dialysis, received 2nd session of hemodialysis this morning. Heart rate continues to stay in the 90-100, underlying rhythm A-fib, occasional converts to sinus rhythm but flips back to A-fib. Received metoprolol 50 mg this morning post hemodialysis. UF goal 2 to 3 L, inadequate diuresis with furosemide. Nephrology plans for permanent hemodialysis tunneled catheter upon discharge. Labs pertinent for mild anemia hemoglobin 8.7, stable, and thrombocytopenia, potassium 5.4, BUN 86 creatinine 4.7, corrected calcium 8.4 magnesium 2.0. Persistent pitting edema 3+, but visibly reduced compared to prior. Improved air entry bilateral lungs on physical exam Exam Vital Signs Temp Pulse Resp BP Pulse Ox O2 Del Method O2 Flow Rate 97.8 F 108 H 17 119/96 H 98 Nasal Cannula 3 04/20/24 10:59 04/20/24 11:50 04/20/24 10:59 04/20/24 11:50 04/20/24 10:59 04/20/24 08:00 04/20/24 10:59 Narrative Exam General: AOx3, seen during hemodialysis, tolerating hemodialysis well, laying propped up, on room air, able to speak full sentences HEENT: NC/AT, mucous membranes moist, bilateral sclera anicteric Cardiovascular: Tachycardic, regular rhythm, S1/S2 present, no murmurs appreciated Pulmonary: Reduced air entry at bases, more prominent in the left side, likely pleural effusion. Abdominal: s/p paracentesis, distended, soft, non-tender, no rebound/guarding Musculoskeletal: 3+ bilateral lower extremity pitting edema up to lower abdomen Skin: chronic venous stasis changes in BLE Neuro: CN II-XII intact, no focal deficits Objective Labs 04/20/24 05:25 04/20/24 05:25 Labs: Laboratory Results - last 24 hr 04/19/24 04/19/24 04/20/24 13:27 14:18 05:25 WBC 5.3 RBC 3.19 L Hgb 8.7 L Hct 28.0 L MCV 88 MCH 27.3 MCHC 31.1 RDW Std Deviation 52.0 H Plt Count 51 L D Neut % (Auto) 73 Lymph % (Auto) 17 [place] % (Auto) 8 Eos % (Auto) 2 Baso % (Auto) 0 Neut # (Auto) 3.8 Lymph # (Auto) 0.9 L [place] # (Auto) 0.4 Eos # (Auto) 0.1 Baso # (Auto) 0.0 Immature Gran # (Auto) 0.02 H Absolute Nucleated RBC 0.00 Immature Gran % 0 Nucleated RBC % 0 Sodium 138 140 Potassium 5.0 5.4 H Chloride 107 106 Carbon Dioxide 20.0 26.0 Anion Gap 11 8 BUN 102 H* 86 H Creatinine 5.2 H* 4.7 H* D Estim Creat Clear Calc 26.1 L 28.9 L eGFR 14 L* 15 L BUN/Creatinine Ratio 20 18 Glucose 90 93 Calculated Osmolality 307 H 305 H Calcium 7.9 L 8.1 L Corrected Calcium 8.4 L Phosphorus 5.1 Magnesium 2.1 Total Bilirubin 0.7 AST 16 ALT < 7 L Alkaline Phosphatase 103 Total Protein 6.2 Albumin 3.6 D Globulin 2.6 Albumin/Globulin Ratio 1.4 Hepatitis A IgM Ab Non Reactive Hep Bs Antigen Non Reactive Hep B Core IgM Ab Non Reactive Hepatitis C Antibody Non Reactive Misc Test Result Platelets confirmed ABG Interpretation ABG results: 04/16/24 19:09 ABG pH 7.32 L ABG pCO2 39 ABG pO2 55 L* ABG HCO3 20 ABG O2 Saturation 88 L ABG Base Excess -6 L Quality Measures Quality Measures VTE prophylaxis (Heparin on hold) Assessment & Plan Assessment Current Active Medications: Generic Name Dose Route Start Last Admin Trade Name Freq PRN Reason Stop Dose Admin Acetaminophen 650 mg 04/16/24 21:30 Acetaminophen 325 Mg Tablet PO 05/16/24 21:29 Q6H PRN Fever >100 or pain 1-3 Hydrocodone Bitart/Acetaminophen 1 tab 04/17/24 00:00 04/20/24 00:23 Hydrocodone/Apap 5/325 Tablet PO 04/22/24 00:00 1 tab Q4HR PRN Administration Pain 4-6 Al Hydrox/Mg Hydrox/Simethicone 30 ml 04/17/24 17:59 04/17/24 18:12 Mg Hyd/Al Hyd/Odette (Maalox Reg) Susp 30 Ml Udc PO 05/17/24 17:58 30 ml Q4HR PRN Administration UPSET STOMACH/INDIGESTION Ciprofloxacin 500 mg 04/18/24 09:00 04/20/24 11:49 Ciprofloxacin Hcl 250 Mg Tablet PO 04/25/24 08:59 500 mg QDAY [place] Administration Dextrose 25 ml 04/17/24 07:57 Dextrose 50%-Water Inj 50 Ml Syringe IV 05/17/24 07:56 Q15MIN PRN BG 50-70 responsive npo pt Dextrose 50 ml 04/17/24 07:57 Dextrose 50%-Water Inj 50 Ml Syringe IV 05/17/24 07:56 Q15MIN PRN BG <50 OR BG <70 & pt unresponsive Glucagon 1 mg 04/17/24 07:57 Glucagon Inj 1 Mg Vial IM Q15MIN PRN BG <70, and no IV access Heparin Sodium (Porcine) 5,000 unit 04/17/24 09:00 04/20/24 11:47 Heparin Sod Inj 5000 Unit/Ml Vial SC 05/01/24 08:59 Not Given Q12HR [place] Heparin Sodium (Porcine) 2,500 unit 04/19/24 18:16 04/20/24 10:36 Heparin Sod Inj 1000 Unit/Ml Vial 10 Ml INDWELLCAT 05/03/24 18:15 2,500 unit X1 PRN Administration DIALYSIS Levalbuterol HCl 0.63 mg 04/18/24 20:47 Levalbuterol Rt 0.63 Mg/3 Ml Nebu INH 05/18/24 20:46 Q8HR PRN WHEEZING Metoprolol Succinate 50 mg 04/20/24 09:00 04/20/24 11:50 Metoprolol Succinate Xl 25 Mg Tabcr PO 05/20/24 08:59 50 mg QDAY [place] Administration Ondansetron HCl 4 mg 04/16/24 21:30 04/17/24 08:41 Ondansetron Inj 2 Mg/Ml Inj 2 Ml IV 05/16/24 21:29 4 mg Q6H PRN Administration NAUSEA OR VOMITING Protocol Oseltamivir Phosphate 30 mg 04/19/24 09:00 04/20/24 11:50 Oseltamivir 30 Mg Capsule PO 04/26/24 09:01 30 mg QDAY [place] Administration Pantoprazole Sodium 40 mg 04/17/24 09:00 04/20/24 11:50 Pantoprazole 40 Mg Tablet PO 05/17/24 08:59 40 mg QDAY [place] Administration Pharmacy Consult 1 each 04/18/24 10:17 Pharmacy Renal Dose Adjustment 1 Ea XX 05/18/24 10:16 PRN PRN CONSULT Sennosides 1 tab 04/17/24 08:15 04/18/24 21:48 Senna Tablet PO 05/17/24 08:14 1 tab QDAY PRN Administration CONSTIPATION Protocol Sevelamer Carbonate 800 mg 04/17/24 08:00 04/20/24 11:49 Sevelamer Carbonate 800 Mg Tablet PO 05/17/24 07:59 800 mg TIDWM [place] Administration Plan Problems: 1. Paroxysmal atrial fibrillation?rate controlled Patient denied a prior medical history of palpitations or atrial fibrillation, EKG on admission showed A-fib with incomplete BBB on 04/16/2024, apparently patient has been going in and out of A-fib, EKG on 04/18/2024 showed patient was in sinus rhythm, A-fib RVR heart rate in the 150s to 160s on 04/18/2024, following nebulization, DuoNebs changed to levalbuterol. Responded to low-dose beta- blockade, at the time of evaluation today, patient's rhythm continued slipping in and out of atrial fibrillation, rate controlled and reverted into sinus rhythm. ? Metoprolol succinate 50 mg daily, monitor for hypotension. ? [id number] score is 2, given patient's relatively young age and low CHA2DS score can defer anticoagulation at a later time. 2. HFrEF secondary to dilated cardiomyopathy Echocardiogram shows finding consistent with dilated cardiomyopathy, grade 3 diastolic dysfunction. restrictive filling pattern, estimated EF 25 to 30%, severely increased left atrial volume. Urine output 500 mL with 24 hours, despite 80 mg IV Lasix twice daily. Started on hemodialysis by nephrology. Patient does seem to be on the heavier side 122 kg, likely significant water weight secondary to anasarca. Physical exam pertinent for bilateral pleural effusions. ? Continue with short intermittent hemodialysis , UF goal 2-3 L for today 4T score is 3 , low probability of HIT, onset of thrombocytopenia <72 within 48 hrs of admission, less likely HIT. ? Metoprolol succinate 50 mg daily, monitor for hypotension,, slowly introduce rest of GDMT as tolerated. 3. Hyperkalemia Failure to respond to hyperkalemia cocktail, persistent hyperkalemia despite medical therapy, initiated hemodialysis. 4. Type II RI Troponin elevation in the setting of A-fib RVR, likely supply/demand mismatch leading to troponin elevation, The patient denied any chest pain, or orthopnea or diaphoresis, continue with medical management. 5. End-stage renal disease on hemodialysis Requiring hemodialysis due to fluid overload and hyperkalemia not responding to medical management, management per nephrology. 6. Anemia 7. Thrombocytopenia 4T score is 3 , low probability of HIT, onset of thrombocytopenia <72 within 48 hrs of admission, less likely HIT. Plan of care discussed with aircraft engine dismantler Dr. Geo Olea. Jovani PGY2
[2024-04-20 16:21] LABS: INR 1.2 (0.9-1.3); Partial Thromboplastin Time 36.3 Seconds (22.0-36.0); Prothrombin Time 13.4 Seconds (9.0-12.2)
[2024-04-20 16:59] LABS: Misc Send Out* See Sep Rpt
[2024-04-20 17:25] LABS: Hepatitis B Surface Antigen Non Reactive (Non React)
--- NOTE | 2024-04-20 23:40 | ESPR_ITS ---
RE: ALLI [place] : 1985 DATE OF SERVICE: 04/20/2024 HISTORY OF PRESENT ILLNESS: This patient is a 38-year-old -[place] gentleman with type 2 diabetes since he was 24 years old with nephrotic syndrome whose proteinuria way back in 2018 was 8.8 g, right leg DVT, hypertension, morbid obesity, fatty liver, who presented to the emergency room on 04/16/2024 with anasarca. The patient was also very weak and was short of breath and was found with positive influenza B. The patient was also started on Tamiflu 30 mg p.o. daily. When he was admitted, he was found with a BUN of 98 and creatinine of 4.1. He was found with ascites and had a large volume paracentesis while in the hospital. He was also started on IV Lasix; however, despite Lasix and some urine output, the patient remained very volume overloaded. The patient's potassium level was also difficult to control. The patient also has been hypoxic since he presented, and his chest x-ray also confirmed vascular congestion. His BUN felecia further to 102 with a creatinine of 5.2 with dwindling urine output. He was started on dialysis on 04/19/2024 and had another dialysis session today. About 2 liters of fluid was removed today. CURRENT MEDICATIONS: 1. Acetaminophen. 2. Albuterol. 3. Ciprofloxacin. 4. Heparin 5000 units subcutaneously daily. 5. Tamiflu 30 mg p.o. daily. 6. Ondansetron. 7. Metoprolol. PHYSICAL EXAMINATION: General: He is awake, surrounded by family, alert, not in respiratory distress. Vital Signs: Blood pressure of 135/99, heart rate of 100, O2 saturation of 96% on 1 liter of oxygen via nasal cannula. HEENT: Anicteric sclerae. Normocephalic. Neck: Supple. No JVD. Chest and Lungs: Normal expansion. Decreased breath sounds bilaterally with occasional rhonchi. Cardiac: No rub or murmur. Abdomen: Soft with some edema. Extremities: 2+ peripheral edema, much better compared to how it was yesterday. LABORATORY DATA: Hemoglobin 8.7, platelet count 51,000. Sodium 140, potassium 5.4, CO2 of 26, BUN 86, creatinine 4.7, calcium 8.4, phosphorus 5.1. ASSESSMENT: 1. End-stage renal disease. 2. Morbid obesity. 3. Anasarca secondary to liver cirrhosis and nephrotic syndrome and advanced kidney failure. 4. Type 2 diabetes. 5. Hypertension. 6. Anemia of chronic kidney disease. 7. Hyperkalemia, secondary to advanced chronic kidney disease. 8. Positive influenza B serology. 9. History of fatty liver, which progressed to liver cirrhosis. 10. Hypoxia, now improved. 11. Vascular congestion. 12. Elevated troponin level, most likely secondary to congestive heart failure, type 2 [id number] myocardial infarction. PLAN: The patient will have a tunneled dialysis catheter tomorrow. The patient was also seen by donor support technician and it was thought that the rapid heart rate that he experienced yesterday was due to paroxysmal atrial fibrillation. The patient will also be dialyzed after getting the tunneled dialysis catheter. DT: 21:43:19 TT: 22:53:00 Ref: [id number] - TID: [id number] MTDD
[2024-04-21] VITALS (34 sets, daily range): BP systolic 114–160; BP diastolic 72–100; PULSE 22–98; RESP 12–93; TEMP 36.1–36.9; O2SAT 90–99; BMI 35.6
--- NOTE | 2024-04-21 | XR_ITS ---
Exam: Fluoroscopic guided removal of temporary right IJ dialysis catheter Fluoroscopic and ultrasound-guided right internal jugular vein dual-lumen tunneled dialysis catheter placement. Date: 04/21/2024, 3:15 PM Indication: Renal failure. Fluoroscopy time: 2.9 minute Dose: 39.22 mGy Technique: After a discussion of risks and benefits informed consent was obtained. Patient was brought to the angiography suite and placed supine on the exam table. Preliminary ultrasound evaluation demonstrated right internal jugular vein to be patent. This was targeted for dialysis catheter placement. The existing right temporary dialysis catheter sutures were cut and the catheter was removed easily with gentle traction. Pressure was held for 5 minutes. Hemostasis was achieved The skin overlying the right IJ was cleaned and draped in normal sterile surgical fashion.20 cc's of 1% lidocaine was used for local anesthesia. Conscious sedation was begun with direct continuous nursing supervision. Using ultrasound guidance access to the right internal jugular vein was obtained with a micropuncture needle. An 0.018 wire was advanced through the needle into the SVC and the needle was withdrawn. A 5 [place] micropuncture change sheath was advanced over the wire, and the wire removed. The sheath was capped. A 5 cm subcutaneous tunnel was created from the right anterior lateral chest wall and exiting at the right IJ access site. . A 23 cm cuff to tip, 15.5 [place] dual lumen dialysis catheter was attached to the tunneling device and pulled through the tunnel exiting the skin at the right IJ vein access site. A 0.035 stiff Amplatz wire was advanced through the IJ sheath into the IVC. The 5 [place] sheath was removed. The tract was serially dilated and a 16 [place] peel-away sheath was placed. Catheter was advanced through the peel-away sheath and peel-away sheath removed. Distal catheter tips were appropriately positioned in the right atrium. Both ports flushed and aspirated normally and were filled with the appropriate amount of 1000:1 heparinize saline. Catheter was sutured in place with a 2-0 silk suture and covered with sterile dressing. The IJ access site was closed with 2-0 Vicryl suture and Dermabond glue and Steri-Strips. There were no immediate complications. Impression: Successful removal of right IJ temporary dialysis catheter Successful placement of right IJ vein 23 cm cuff to tip dual-lumen dialysis catheter as above. Catheter is ready for use.
[2024-04-21 05:36] LABS: Basophils % (Auto) 0 % (0-2.5); Eosinophils # (Auto) 0.2 Thou/mm3 (0.0-0.5); Eosinophils % (Auto) 4 % (0-10); Hematocrit 30.1 % (41.0-53.0); Hemoglobin 9.3 g/dL (13.5-16.0); Immature Granulocytes % (Auto) 0 % (0-0); Immature Granulocytes Auto 0.02 Thou/mm3 (0.00-0.00); Lymphocytes # (Auto) 1.1 Thou/mm3 (1.0-4.8); Lymphocytes % (Auto) 18 % (10-50); Mean Corpuscular HGB Conc 30.9 g/dl (31.0-37.0); Mean Corpuscular Volume 88 fL (80-100); Monocytes # (Auto) 0.5 Thou/mm3 (0.0-0.8); Monocytes % (Auto) 8 % (0-12); Neutrophils # (Auto) 4.1 Thou/mm3 (1.8-7.7); Neutrophils % (Auto) 70 % (37-80); Nucleated Red Blood Cell % 0 /100 WBC (0); Platelet Count 96 Thou/mm3 (140-440); RDW Standard Deviation 51.6 fL (35.1-43.9); Red Blood Count 3.44 Miln/mm3 (4.50-5.90); White Blood Count 5.8 Thou/mm3 (3.8-10.6)
[2024-04-21 05:44] LABS: INR 1.2 (0.9-1.3); Prothrombin Time 13.2 Seconds (9.0-12.2)
[2024-04-21 06:41] LABS: Alanine Aminotransferase < 7 U/L (10-49); Albumin, Serum 3.5 gm/dL (3.5-5.0); Albumin/Globulin Ratio 1.4 (1.2-2.2); Alkaline Phosphatase 113 U/L (46-116); Anion Gap 8 (7-16); Aspartate Amino Transferase 12 U/L (0-34); BUN/Creatinine Ratio 16 Ratio (12-20); Bilirubin,Total 0.9 mg/dL (0.3-1.2); Blood Urea Nitrogen 66 mg/dL (9-23); Calcium (Corrected) 8.4 mg/dL (8.5-10.1); Carbon Dioxide 27.4 mMol/L (20.0-31.0); Chloride 105 mMol/L (98-107); Creatinine (Component) 4.1 mg/dL (0.6-1.3); Estimated Creatinine Clearance 32.6 mL/min (>60); Globulin 2.5 gm/dL (2.3-3.5); Glucose 89 mg/dL (74-106); Osmolality,Calculated 297 (275-295); Phosphorous 4.4 mg/dL (2.4-5.1); Sodium 140 mMol/L (136-145); eGFR 18 See Note
--- NOTE | 2024-04-21 07:41 | PC.NURSE ---
Patient transfer via hospital bed to dialysis, accompanied by dialysis nurses and family member.
--- NOTE | 2024-04-21 09:22 | PC.SS ---
SS follow up note; SS was informed by Team A that patient might be a new Dialysis. SS sent clinicals to NIKKIE Rocha in case patient permanently needs dialysis. SS will sent TB test when available.
[2024-04-21] MEDS: HEPARIN SOD INJ 1000 UNIT/ML VIAL 10 ML 2500 UNIT INDWELLCAT (11:01)
--- NOTE | 2024-04-21 12:00 | ESPR_ITS ---
<Statement entered by Rod Robin MD - 04/21/24 15:15> Patient was seen and examined at the bedside. Patient had 3 consecutive session of dialysis. Blood pressure was stable. Hemoglobin remained stable at 9.3. Kidney functions improved with BUN 66 and creatinine 4.1. Cardiology recommended to continue metoprolol XL 50 mg once daily. Will continue ciprofloxacin for SBP prophylaxis. Patient will receive tunneled dialysis catheter today. Will follow-up nephrology recommendations. All labs and orders were reviewed. I saw and examined the patient, and I agree with current management stated by Dr Evert MD,PGY1. Plan of care was discussed with the attending physician and resident physician. Disclaimer: Despite multiple revisions, due to the dictation software being used, the document bellow may not be free of grammatical errors including phonetic/typographic errors. However, this does not deter from our commitment to providing health care in the patient's best interest in mind. Dr. Sharda MD, PGY 2 Documentation for date of: 04/21/24 Subjective Subjective Interval history: Barry Rahman is a 38-y/o male with a PMHx of nephrotic syndrome, DVT (previously on Eliquis in 2019), hypertension, morbid obesity presented on 04/16 for lower extremity/abdominal/scrotal swelling x 3 months. Noted to have been diagnosed with nephrotic syndrome 7 years ago but lost to follow-up from hot mill worker, Dr. Teague, 3 years ago. Due to pain in his legs and scrotum, presented to ED. Admitted for acute renal failure. 04/17: ICU team was consulted for paracentesis removed 11 L and then given 50 g of albumin afterwards (received 25 g in a.m. and additional 25 at night). Started on Lasix 80 mg IV but evening dose held due to concern for hypotension. Given allergy to penicillins, antibiotic switched to ciprofloxacin for SBP prophylaxis. Strict I's and O's, fluid restriction, and nephrology following. If patient comes hypotensive, consider midodrine or octreotide. Scrotal ultrasound showed bilateral hydroceles. Sevelamer given for hyperphosphatemia. 04/18: Seen and examined at bedside in telemetry. No acute overnight events reported. Denies any fevers, chest discomfort, shortness of breath, or abdominal pain after large-volume paracentesis previous day. Continues to have good urine output of 900 cc in 24 hours as of afternoon. However, renal function continues to decline with BUN 105, creatinine 4.8, GFR 15. Patient spoke to Dr. Teague on 04/17 who stated that she will try and see the patient today but if not we will have to see him on Friday. Spoke to patient about possibility of dialysis given that renal function has not improved with albumin challenge. Phosphorus continues to be high on sevelamer 800 mg p.o. 3 times daily. Potassium noted to increase from 5.2-5.9 and repeat showed potassium of 6.1 so we will give [place] 8.4 g x 1, breathing treatment x 1, and repeat potassium later to see if insulin is indicated. However, will be cautious given with insulin given renal failure. 04/19: Seen and examined at bedside in telemetry. Noted to have RR at 2023 HR up to 160s with associated palpitations but no shortness of breath, chest pain, or lightheadedness. SBP in 130s and given Lopressor 2.5 mg IV. Upon evaluation, patient did not endorse any symptoms. Continues to have good UOP with total of 900 cc on 04/18. Potassium noted to be 5.4 in a.m. after receiving albuterol and insulin overnight. Will give another breathing treatment and repeat BMP in afternoon showed potassium of 5.0. However, renal function has not been improving with albumin with BUN of 102 and creatinine 5.2. Called Dr. Teague who stated that patient will require urgent dialysis and spoke to patient and family who are in agreement. Thus, temporary dialysis catheter placed and plans for first session tomorrow morning. Otherwise, calcium repleted and will stop trending troponin given decreased kidney function and that it is likely not clearing. 04/20: Seen and examined at bedside while undergoing dialysis, tolerating well. This is patient's second session in total and planned for third tomorrow. Additionally, plans for placement of TDC tomorrow as well and thus will keep patient n.p.o. after midnight. After third session, will continue dialysis at [facility] [place] for chronic dialysis needs. Cardiology consulted and recommends 50 mg of metoprolol daily for A-fib and the heart rate has been rate controlled in 70s and 80s. 04/21: Seen and examined at bedside while undergoing third session of dialysis and tolerating well, planning to remove 2-3 L as tolerated. He is also status- post replacement of temporary dialysis catheter for tunneled-dialysis catheter. Current plans are to undergo outpatient dialysis but pending HBcAb for dialysis chair. Otherwise, electrolytes (K, Phos, Ca) and BUN and Cr have improved after starting dialysis. Continues to be on metoprolol 50 mg daily for a-fib and has been rate controlled. Exam Vital Signs Temp Pulse Resp BP Pulse Ox O2 Del Method O2 Flow Rate 98.0 F 86 18 134/77 H 98 Nasal Cannula 1 04/21/24 11:29 04/21/24 11:29 04/21/24 11:29 04/21/24 11:29 04/21/24 11:29 04/21/24 08:00 04/21/24 11:29 Narrative Exam General: AOx3, seen during hemodialysis and tolerating well, able to speak full sentences HEENT: temporary dialysis catheter in right IJ, NC/AT, mucous membranes moist, bilateral sclera anicteric Cardiovascular: Tachycardic, regular rhythm, S1/S2 present, no murmurs appreciated Pulmonary: clear to auscultation bilaterally, no rales/rhonchi/wheezes Abdominal: s/p paracentesis, distended, soft, non-tender, no rebound/guarding Musculoskeletal: 2+ BLE pitting edema, improving Skin: chronic venous stasis changes in BLE Neuro: CN II-XII intact, no focal deficits Objective Labs 04/21/24 04:51 04/21/24 04:51 Labs: Laboratory Results - last 24 hr 04/20/24 04/21/24 15:55 04:51 WBC 5.8 RBC 3.44 L Hgb 9.3 L Hct 30.1 L MCV 88 MCH 27.0 MCHC 30.9 L RDW Std Deviation 51.6 H Plt Count 96 L D Neut % (Auto) 70 Lymph % (Auto) 18 [place] % (Auto) 8 Eos % (Auto) 4 Baso % (Auto) 0 Neut # (Auto) 4.1 Lymph # (Auto) 1.1 [place] # (Auto) 0.5 Eos # (Auto) 0.2 Baso # (Auto) 0.0 Immature Gran # (Auto) 0.02 H Absolute Nucleated RBC 0.00 Immature Gran % 0 Nucleated RBC % 0 PT 13.4 H 13.2 H INR 1.2 1.2 APTT 36.3 H 35.0 Sodium 140 Potassium 5.0 Chloride 105 Carbon Dioxide 27.4 Anion Gap 8 BUN 66 H Creatinine 4.1 H* D Estim Creat Clear Calc 32.6 L eGFR 18 L BUN/Creatinine Ratio 16 Glucose 89 Calculated Osmolality 297 H Calcium 8.0 L Corrected Calcium 8.4 L Phosphorus 4.4 Magnesium 2.0 Total Bilirubin 0.9 AST 12 ALT < 7 L Alkaline Phosphatase 113 Total Protein 6.0 Albumin 3.5 Globulin 2.5 Albumin/Globulin Ratio 1.4 Hep Bs Antigen Non Reactive ABG Interpretation ABG results: 04/16/24 19:09 ABG pH 7.32 L ABG pCO2 39 ABG pO2 55 L* ABG HCO3 20 ABG O2 Saturation 88 L ABG Base Excess -6 L Quality Measures Quality Measures VTE prophylaxis (Heparin on hold) Assessment & Plan Assessment Current Active Medications: Generic Name Dose Route Start Last Admin Trade Name Freq PRN Reason Stop Dose Admin Acetaminophen 650 mg 04/16/24 21:30 Acetaminophen 325 Mg Tablet PO 05/16/24 21:29 Q6H PRN Fever >100 or pain 1-3 Hydrocodone Bitart/Acetaminophen 1 tab 04/17/24 00:00 04/20/24 00:23 Hydrocodone/Apap 5/325 Tablet PO 04/22/24 00:00 1 tab Q4HR PRN Administration Pain 4-6 Al Hydrox/Mg Hydrox/Simethicone 30 ml 04/17/24 17:59 04/17/24 18:12 Mg Hyd/Al Hyd/Odette (Maalox Reg) Susp 30 Ml Udc PO 05/17/24 17:58 30 ml Q4HR PRN Administration UPSET STOMACH/INDIGESTION Ciprofloxacin 500 mg 04/18/24 09:00 04/20/24 11:49 Ciprofloxacin Hcl 250 Mg Tablet PO 04/25/24 08:59 500 mg QDAY [place] Administration Dextrose 25 ml 04/17/24 07:57 Dextrose 50%-Water Inj 50 Ml Syringe IV 05/17/24 07:56 Q15MIN PRN BG 50-70 responsive npo pt Dextrose 50 ml 04/17/24 07:57 Dextrose 50%-Water Inj 50 Ml Syringe IV 05/17/24 07:56 Q15MIN PRN BG <50 OR BG <70 & pt unresponsive Glucagon 1 mg 04/17/24 07:57 Glucagon Inj 1 Mg Vial IM Q15MIN PRN BG <70, and no IV access Heparin Sodium (Porcine) 5,000 unit 04/17/24 09:00 04/20/24 11:47 Heparin Sod Inj 5000 Unit/Ml Vial SC 05/01/24 08:59 Not Given Q12HR [place] Heparin Sodium (Porcine) 2,500 unit 04/19/24 18:16 04/21/24 11:01 Heparin Sod Inj 1000 Unit/Ml Vial 10 Ml INDWELLCAT 05/03/24 18:15 2,500 unit X1 PRN Administration DIALYSIS Levalbuterol HCl 0.63 mg 04/18/24 20:47 Levalbuterol Rt 0.63 Mg/3 Ml Nebu INH 05/18/24 20:46 Q8HR PRN WHEEZING Metoprolol Succinate 50 mg 04/20/24 09:00 04/20/24 11:50 Metoprolol Succinate Xl 25 Mg Tabcr PO 05/20/24 08:59 50 mg QDAY [place] Administration Ondansetron HCl 4 mg 04/16/24 21:30 04/17/24 08:41 Ondansetron Inj 2 Mg/Ml Inj 2 Ml IV 05/16/24 21:29 4 mg Q6H PRN Administration NAUSEA OR VOMITING Protocol Oseltamivir Phosphate 30 mg 04/19/24 09:00 04/20/24 11:50 Oseltamivir 30 Mg Capsule PO 04/26/24 09:01 30 mg QDAY [place] Administration Pantoprazole Sodium 40 mg 04/17/24 09:00 04/20/24 11:50 Pantoprazole 40 Mg Tablet PO 05/17/24 08:59 40 mg QDAY [place] Administration Pharmacy Consult 1 each 04/18/24 10:17 Pharmacy Renal Dose Adjustment 1 Ea XX 05/18/24 10:16 PRN PRN CONSULT Sennosides 1 tab 04/17/24 08:15 04/18/24 21:48 Senna Tablet PO 05/17/24 08:14 1 tab QDAY PRN Administration CONSTIPATION Protocol Sevelamer Carbonate 800 mg 04/17/24 08:00 04/21/24 10:04 Sevelamer Carbonate 800 Mg Tablet PO 05/17/24 07:59 Not Given TIDWM [place] Laith Barry Rahman is a 38-y/o male with a PMHx of nephrotic syndrome, DVT (previously on Eliquis in 2019), hypertension, morbid obesity presented on 04/16 for lower extremity/abdominal/scrotal swelling x 3 months. Noted to have been diagnosed with nephrotic syndrome 7 years ago but lost to follow-up from hot mill worker, Dr. Teague, 3 years ago. Due to pain in his legs and scrotum, presented to ED. Admitted for acute renal failure. #Acute renal failure likely secondary to hepatorenal syndrome versus prerenal in #?Hepatorenal syndrome #?Nephrotic syndrome likely secondary to chronic kidney disease #Hyperphosphatemia, improving #Hyperkalemia #Hypocalcemia #Anasarca likely secondary to acute decompensated liver failure versus NAIDA on CKD Presented with creatinine of 4.1, with most recent being 2.1 in 2021 and prior to that in 2018 BL appeared to be 1.5-1.6. Attempted albumin challenge and no improvement in renal function. SAAG of 1.4 (> 1.1), indicating portal HTN as etiology of ascites. S/p placement of temporary dialysis catheter 04/19 and has undergone 2 sessions, 04/19 and 04/20, and is tolerated well. Underwent third session of dialysis and then temp catheter exchanged for TDC on 04/21. Plan for dialysis for 3 days straight and increment doses and afterwards will be placed at dialysis center at [place] for chronic dialysis needs. ? Nephrology consulted, appreciate recommendations ? Ciprofloxacin 500 mg p.o. daily (renally dosed, 04/17-) for SBP prophylaxis ? Patient has penicillin allergy ? Albumin and lasix discontinued ? Peritoneal fluid culture negative ? Sevelamer 800 mg p.o. 3 times daily ? Renally dose medications, avoid nephrotoxic agents if possible #Atrial fibrillation, likely paroxysmal #HFrEF (EF 25-30%), secondary to dilated cardiomyopathy (new diagnosis) #NSTEMI type II likely secondary to demand ischemia #Pericadial effusion History of pericardial effusion as seen on echo in 2018 and currently has 14 mm pericardial effusion. BNP [address] showed mild-moderate enlarged cardiac contour, prominent vascular congestion and bilateral pulmonary edema. Echo 04/19: dilated cardiomyopathy with severe LV dysfunction. EF 25 to 30%. LA severely dilated, RA mildly dilated. Small pericardial effusion. Cardiology consulted for elevated heart rate after nebulization and DuoNebs changed to levalbuterol. Responded to low-dose beta-blockade and goes in and out of atrial fibrillation. ? Recommend metoprolol succinate 50 mg daily ? 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 CT A/P showed heart failure, vascular congestion, pericardial effusion, cirrhosis, and significant ascites. US scrotum: Large bilateral hydroceles with scrotal wall edema. Status post paracentesis removal of 11 L with 50 g of albumin given. No significant history of EtOH consumption or portal HTN and hepatitis panel (- ). 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 Suspect presentation may be due to cirrhosis/hepatorenal syndrome. However, liver synthetic function appears to be relatively intact as LFTs normal, plts mildly low at 116, INR 1.3, and albumin 3.6. #AHRF secondary to influenza pneumonia ? Tamiflu 30 mg twice daily (renally dosed, 04/17-) ? DuoNebs ? Wean down supplemental O2 as tolerated #History of hypertension Home hydralazine 100 mg TID -> holding due to to concern for hypotension after paracentesis ? Hold off on ISABELA and ARB's #History of normocytic anemia, likely secondary to CKD ? Consider iron tablets on discharge #History of DVT No blood thinner as home. D-dimer around 3000 on admission, DVT lower extremity negative. Hospital management: Disposition: pending outpatient dialysis chair s/p 3rd HD session inpatient Fluids: none Diet: renal Lines: PIV DVT prophylaxis: heparin SC GI prophylaxis: pantoprazole IV Starr: DC'd CODE STATUS: full code ----- Plan discussed with attending physician Dr. Krause and senior resident physician Dr. Sharda Loyd MD PGY-1 Internal Medicine Attending Provider Attestation/Addendum I have discussed and was present for the essential components of the history, physical examination, diagnosis, and treatment plan with the resident. I agree with the patient's care as documented by the resident and amended herein by me. Anirudh Krause DO. Although this document has been carefully reviewed, there may still be some phonetic and other typographical errors. These errors are purely grammatical due to imperfections in the software program and should not be construed in any way to compromise the substance of the patient's medical care during this visit.
--- NOTE | 2024-04-21 12:36 | PC.NURSE ---
Spoke to Rodney at [employer] for update pts procedure-- multiple procedures pending will consult with charge nurse and call back with update.
--- NOTE | 2024-04-21 13:17 | PC.NURSE ---
patient transfer to clinical laboratory director via wheelchair accompanied with [employer] SOFTWARE ENGINEER. Pt alert and oriented x3.
--- NOTE | 2024-04-21 13:30 | PC.NURSE ---
consulted dr Teague regarding order for dialysis catheter insertion, order is to insert tunneled dialysis catheter and is successful, remove temporary dialysis catheter.
--- NOTE | 2024-04-21 13:51 | ESPR_ITS ---
<Statement entered by Leah Olea MD - 04/27/24 12:21> I personally examined the patient with PGY [address] JC, the patient is doing fairly well cardiac penny stable no evidence of heart failure paroxysmal A-fib continue medical management patient close for now agree with plan recommendation as recommended and documented by resident physician with my supervision Documentation for date of: 04/21/24 Subjective Subjective Interval history: Overnight events, labs reviewed. The patient examined this a.m. at bedside. The patient is feeling better after hemodialysis, has no active complaints. Exam Vital Signs Temp Pulse Resp BP Pulse Ox O2 Del Method O2 Flow Rate 97.1 F 94 17 131/91 H 97 Nasal Cannula 2 04/21/24 13:24 04/21/24 13:24 04/21/24 13:24 04/21/24 13:24 04/21/24 13:24 04/21/24 13:24 04/21/24 13:24 Narrative Exam General: AOx3, laying propped up, on 2L NC o2 , able to speak full sentences HEENT: NC/AT, mucous membranes moist, bilateral sclera anicteric Cardiovascular: Tachycardic, regular rhythm, S1/S2 present, no murmurs appreciated Pulmonary: improved air entry compared to last exam, minimal basal crackles appreciated Abdominal: s/p paracentesis, distended, soft, non-tender, no rebound/guarding Musculoskeletal: 3+ bilateral lower extremity pitting edema up to lower abdomen Skin: chronic venous stasis changes in BLE Neuro: CN II-XII intact, no focal deficits Objective Labs 04/22/24 05:00 04/22/24 05:00 Labs: Laboratory Results - last 24 hr 04/20/24 04/21/24 15:55 04:51 WBC 5.8 RBC 3.44 L Hgb 9.3 L Hct 30.1 L MCV 88 MCH 27.0 MCHC 30.9 L RDW Std Deviation 51.6 H Plt Count 96 L D Neut % (Auto) 70 Lymph % (Auto) 18 [place] % (Auto) 8 Eos % (Auto) 4 Baso % (Auto) 0 Neut # (Auto) 4.1 Lymph # (Auto) 1.1 [place] # (Auto) 0.5 Eos # (Auto) 0.2 Baso # (Auto) 0.0 Immature Gran # (Auto) 0.02 H Absolute Nucleated RBC 0.00 Immature Gran % 0 Nucleated RBC % 0 PT 13.4 H 13.2 H INR 1.2 1.2 APTT 36.3 H 35.0 Sodium 140 Potassium 5.0 Chloride 105 Carbon Dioxide 27.4 Anion Gap 8 BUN 66 H Creatinine 4.1 H* D Estim Creat Clear Calc 32.6 L eGFR 18 L BUN/Creatinine Ratio 16 Glucose 89 Calculated Osmolality 297 H Calcium 8.0 L Corrected Calcium 8.4 L Phosphorus 4.4 Magnesium 2.0 Total Bilirubin 0.9 AST 12 ALT < 7 L Alkaline Phosphatase 113 Total Protein 6.0 Albumin 3.5 Globulin 2.5 Albumin/Globulin Ratio 1.4 Hep Bs Antigen Non Reactive ABG Interpretation ABG results: 04/16/24 19:09 ABG pH 7.32 L ABG pCO2 39 ABG pO2 55 L* ABG HCO3 20 ABG O2 Saturation 88 L ABG Base Excess -6 L Quality Measures Quality Measures VTE prophylaxis (Heparin on hold) Assessment & Plan Assessment Current Active Medications: Generic Name Dose Route Start Last Admin Trade Name Freq PRN Reason Stop Dose Admin Acetaminophen 650 mg 04/16/24 21:30 Acetaminophen 325 Mg Tablet PO 05/16/24 21:29 Q6H PRN Fever >100 or pain 1-3 Hydrocodone Bitart/Acetaminophen 1 tab 04/17/24 00:00 04/20/24 00:23 Hydrocodone/Apap 5/325 Tablet PO 04/22/24 00:00 1 tab Q4HR PRN Administration Pain 4-6 Al Hydrox/Mg Hydrox/Simethicone 30 ml 04/17/24 17:59 04/17/24 18:12 Mg Hyd/Al Hyd/Odette (Maalox Reg) Susp 30 Ml Udc PO 05/17/24 17:58 30 ml Q4HR PRN Administration UPSET STOMACH/INDIGESTION Ciprofloxacin 500 mg 04/18/24 09:00 04/21/24 13:17 Ciprofloxacin Hcl 250 Mg Tablet PO 04/25/24 08:59 Not Given QDAY [place] Dextrose 25 ml 04/17/24 07:57 Dextrose 50%-Water Inj 50 Ml Syringe IV 05/17/24 07:56 Q15MIN PRN BG 50-70 responsive npo pt Dextrose 50 ml 04/17/24 07:57 Dextrose 50%-Water Inj 50 Ml Syringe IV 05/17/24 07:56 Q15MIN PRN BG <50 OR BG <70 & pt unresponsive Glucagon 1 mg 04/17/24 07:57 Glucagon Inj 1 Mg Vial IM Q15MIN PRN BG <70, and no IV access Heparin Sodium (Porcine) 5,000 unit 04/17/24 09:00 04/20/24 11:47 Heparin Sod Inj 5000 Unit/Ml Vial SC 05/01/24 08:59 Not Given Q12HR [facility] Heparin Sodium (Porcine) 2,500 unit 04/19/24 18:16 04/21/24 11:01 Heparin Sod Inj 1000 Unit/Ml Vial 10 Ml INDWELLCAT 05/03/24 18:15 2,500 unit X1 PRN Administration DIALYSIS Levalbuterol HCl 0.63 mg 04/18/24 20:47 Levalbuterol Rt 0.63 Mg/3 Ml Nebu INH 05/18/24 20:46 Q8HR PRN WHEEZING Metoprolol Succinate 50 mg 04/20/24 09:00 04/21/24 13:18 Metoprolol Succinate Xl 25 Mg Tabcr PO 05/20/24 08:59 Not Given QDAY [facility] Ondansetron HCl 4 mg 04/16/24 21:30 04/17/24 08:41 Ondansetron Inj 2 Mg/Ml Inj 2 Ml IV 05/16/24 21:29 4 mg Q6H PRN Administration NAUSEA OR VOMITING Protocol Oseltamivir Phosphate 30 mg 04/19/24 09:00 04/21/24 13:18 Oseltamivir 30 Mg Capsule PO 04/26/24 09:01 Not Given QDAY [facility] Pantoprazole Sodium 40 mg 04/17/24 09:00 04/21/24 13:18 Pantoprazole 40 Mg Tablet PO 05/17/24 08:59 Not Given QDAY [facility] Pharmacy Consult 1 each 04/18/24 10:17 Pharmacy Renal Dose Adjustment 1 Ea XX 05/18/24 10:16 PRN PRN CONSULT Sennosides 1 tab 04/17/24 08:15 04/18/24 21:48 Senna Tablet PO 05/17/24 08:14 1 tab QDAY PRN Administration CONSTIPATION Protocol Sevelamer Carbonate 800 mg 04/17/24 08:00 04/21/24 13:18 Sevelamer Carbonate 800 Mg Tablet PO 05/17/24 07:59 Not Given TIDWM [place] Plan Problems: 1. Paroxysmal atrial fibrillation?rate controlled Patient denied a prior medical history of palpitations or atrial fibrillation, EKG on admission showed A-fib with incomplete BBB on 04/16/2024, apparently patient has been going in and out of A-fib, EKG on 04/18/2024 showed patient was in sinus rhythm, A-fib RVR heart rate in the 150s to 160s on 04/18/2024, following nebulization, DuoNebs changed to levalbuterol. Responded to low-dose beta- blockade, at the time of evaluation today, patient's rhythm continued slipping in and out of atrial fibrillation, rate controlled and reverted into sinus rhythm. ? Metoprolol succinate 50 mg daily, monitor for hypotension. ? [id number] score is 2, given patient's relatively young age and low CHA2DS score can defer anticoagulation at a later time. ? Responding well to rate control by metoprolol 50mg qday, hr staying b/w 70- 90's, no events overnight. Pt will benefit intermediate frame tender from maintaining sinus rhythm given his relatively young age, especially in the setting of cardiomyopathy and HfrEF, rythmic atrial contraction will likely improve cardiac output slightly. Will continue to monitor, staying in afib for now, conisdered amiodarone but considering cirrhosis , CHILD Cesar class B, MELD 19, will avoid, other options for rythm control including flecainide, sotalol also contraindicated due to similar indications of HD and cirrhosis. Dronedarone can be considered in mild-moderate liver failure but contraindicated in severe cirrhosis. risk benefit discussion will be held. 2. HFrEF secondary to dilated cardiomyopathy Echocardiogram shows finding consistent with dilated cardiomyopathy, grade 3 diastolic dysfunction. restrictive filling pattern, estimated EF 25 to 30%, severely increased left atrial volume. Urine output 500 mL with 24 hours, despite 80 mg IV Lasix twice daily. Started on hemodialysis by nephrology. Patient does seem to be on the heavier side 122 kg, likely significant water weight secondary to anasarca. Physical exam pertinent for bilateral pleural effusions. ? Continue with short intermittent hemodialysis , UF goal 2-3 L for today 4T score is 3 , low probability of HIT, onset of thrombocytopenia <72 within 48 hrs of admission, less likely HIT. ? Metoprolol succinate 50 mg daily, monitor for hypotension,, slowly introduce rest of GDMT as tolerated. 3. Hyperkalemia- resolved Failure to respond to hyperkalemia cocktail, persistent hyperkalemia despite medical therapy, initiated hemodialysis. - management per nephrology and primary team 4. Type II NE Troponin elevation in the setting of A-fib RVR, likely supply/demand mismatch leading to troponin elevation, The patient denied any chest pain, or orthopnea or diaphoresis, continue with medical management. 5. End-stage renal disease on hemodialysis Requiring hemodialysis due to fluid overload and hyperkalemia not responding to medical management, - management per nephrology. pending TDC and will be setup for outpt hemodilaysis chair, 6. Anemia 7. Thrombocytopenia 4T score is 3 , low probability of HIT, onset of thrombocytopenia <72 within 48 hrs of admission, less likely HIT. Plan of care discussed with gas reverser Dr. Geo Olea. Jovani PGY2
[2024-04-21] MEDS: MIDAZOLAM INJ 1 MG/ML VIAL 2 ML IV (14:43)
[2024-04-21] MEDS: fentaNYL CIT INJ 50 mCg/ML AMP 2ML 100 MCG IVP (14:43)
[2024-04-21] MEDS: HEPARIN SOD LOCK SYR 100 UNIT/ML 500 UNIT STFIELD (14:48)
[2024-04-21] MEDS: LIDOCAINE INJ PF 1% 30 ML VIAL 21 ML INFL (14:48)
[2024-04-21] MEDS: HEPARIN SOD INJ 1000 UNIT/ML VIAL 3500 UNIT INDWELLCAT (15:20)
--- NOTE | 2024-04-21 15:24 | PC.NURSE ---
1524 patient is awake, alert, breathing unlabored, s/p temporary dialysis catheter removal and insertion of tunneled hemodialysis catheter, dressing to right upper chest/neck dry with no bleeding, patient transferred back to room 275 with tele box, bedside report given to Mary CONNOR. heparin 1.8ml administered to blue dialysis port, heparin 1.7ml adminstered to red dialysis port.
[2024-04-21] MEDS: CLINDAMYCIN/NS 600 MG IVPB 600 MG/50 ML BAG 100 MG IV (17:05)
[2024-04-21] MEDS: SEVELAMER CARBONATE 800 MG TABLET PO (17:06)
[2024-04-21] MEDS: OSELTAMIVIR 30 MG CAPSULE PO (17:06)
[2024-04-21] MEDS: SENNA TABLET 1 TAB PO (17:10)
[2024-04-21] MEDS: METOPROLOL SUCCINATE XL 25 MG TABCR 50 MG PO (17:42)
--- NOTE | 2024-04-21 18:26 | PC.NURSE ---
1430 patient arrived from IR via gurney accompanied by Sera CONNOR, pt alert and oriented x3.
[2024-04-22] VITALS (9 sets, daily range): BP systolic 131–143; BP diastolic 73–102; PULSE 78–100; RESP 12–22; TEMP 36.2–37.1; O2SAT 96–99; BMI 35.6
[2024-04-22 06:04] LABS: Basophils % (Auto) 0 % (0-2.5); Eosinophils # (Auto) 0.3 Thou/mm3 (0.0-0.5); Eosinophils % (Auto) 5 % (0-10); Hematocrit 29.9 % (41.0-53.0); Hemoglobin 9.4 g/dL (13.5-16.0); Immature Granulocytes % (Auto) 0 % (0-0); Immature Granulocytes Auto 0.01 Thou/mm3 (0.00-0.00); Lymphocytes # (Auto) 0.9 Thou/mm3 (1.0-4.8); Lymphocytes % (Auto) 15 % (10-50); Mean Corpuscular HGB Conc 31.4 g/dl (31.0-37.0); Mean Corpuscular Hemoglobin 27.2 pg (25.0-35.0); Mean Corpuscular Volume 86 fL (80-100); Monocytes # (Auto) 0.5 Thou/mm3 (0.0-0.8); Monocytes % (Auto) 8 % (0-12); Neutrophils # (Auto) 4.3 Thou/mm3 (1.8-7.7); Neutrophils % (Auto) 72 % (37-80); Nucleated Red Blood Cell % 0 /100 WBC (0); RDW Standard Deviation 49.9 fL (35.1-43.9); Red Blood Count 3.46 Miln/mm3 (4.50-5.90)
[2024-04-22 06:26] LABS: Platelet Count 86 Thou/mm3 (140-440)
[2024-04-22 06:51] LABS: Alanine Aminotransferase < 7 U/L (10-49); Albumin, Serum 3.3 gm/dL (3.5-5.0); Albumin/Globulin Ratio 1.3 (1.2-2.2); Alkaline Phosphatase 110 U/L (46-116); Anion Gap 11 (7-16); Aspartate Amino Transferase 11 U/L (0-34); BUN/Creatinine Ratio 14 Ratio (12-20); Bilirubin,Total 1.1 mg/dL (0.3-1.2); Blood Urea Nitrogen 54 mg/dL (9-23); Calcium 7.9 mg/dL (8.3-10.6); Calcium (Corrected) 8.5 mg/dL (8.5-10.1); Carbon Dioxide 27.4 mMol/L (20.0-31.0); Chloride 103 mMol/L (98-107); Estimated Creatinine Clearance 33.4 mL/min (>60); Globulin 2.6 gm/dL (2.3-3.5); Glucose 86 mg/dL (74-106); Magnesium 1.9 mg/dL (1.6-2.6); Osmolality,Calculated 294 (275-295); Phosphorous 3.5 mg/dL (2.4-5.1); Potassium 4.6 mMol/L (3.4-5.1); Sodium 141 mMol/L (136-145); Total Protein 5.9 gm/dL (5.7-8.2); eGFR 19 See Note
--- NOTE | 2024-04-22 08:39 | PC.SS ---
Addendum entered by Patrica Ley 04/22/24 14:33: SS contacted [facility] in [place], at the time Insurance verification is pending. Original Note: SS follow up note; SS faxed TB results to [facility] in [place]. Pending Insurance Verification.
[2024-04-22] MEDS: OSELTAMIVIR 30 MG CAPSULE PO (08:44)
[2024-04-22] MEDS: PANTOPRAZOLE 40 MG TABLET PO (08:44)
[2024-04-22] MEDS: SEVELAMER CARBONATE 800 MG TABLET PO ×3 (08:44→16:36)
[2024-04-22] MEDS: METOPROLOL SUCCINATE XL 25 MG TABCR 50 MG PO (08:45)
--- NOTE | 2024-04-22 12:36 | ESPR_ITS ---
<Statement entered by Rod Robin MD - 04/22/24 15:33> Patient was seen and examined at the bedside. Patient reported that he denied chest pain or shortness of breath. No acute overnight event reported. Blood pressure was stable this morning. Patient is awaiting on outpatient hemodialysis set up. Tunneled catheter was placed without complication yesterday. Following nephrology and cardiology recommendations. All labs and orders were reviewed. I saw and examined the patient, and I agree with current management stated by Dr Evert MD,PGY1. Plan of care was discussed with the attending physician and resident physician. Disclaimer: Despite multiple revisions, due to the dictation software being used, the document bellow may not be free of grammatical errors including phonetic/typographic errors. However, this does not deter from our commitment to providing health care in the patient's best interest in mind. Dr. Sharda MD, PGY 2 Documentation for date of: 04/22/24 Subjective Subjective Interval history: Barry Rahman is a 38-y/o male with a PMHx of nephrotic syndrome, DVT (previously on Eliquis in 2019), hypertension, morbid obesity presented on 04/16 for lower extremity/abdominal/scrotal swelling x 3 months. Noted to have been diagnosed with nephrotic syndrome 7 years ago but lost to follow-up from metal fabricating inspector, Dr. Teague, 3 years ago. Due to pain in his legs and scrotum, presented to ED. Admitted for acute renal failure. 04/17: ICU team was consulted for paracentesis removed 11 L and then given 50 g of albumin afterwards (received 25 g in a.m. and additional 25 at night). Started on Lasix 80 mg IV but evening dose held due to concern for hypotension. Given allergy to penicillins, antibiotic switched to ciprofloxacin for SBP prophylaxis. Strict I's and O's, fluid restriction, and nephrology following. If patient comes hypotensive, consider midodrine or octreotide. Scrotal ultrasound showed bilateral hydroceles. Sevelamer given for hyperphosphatemia. 04/18: Seen and examined at bedside in telemetry. No acute overnight events reported. Denies any fevers, chest discomfort, shortness of breath, or abdominal pain after large-volume paracentesis previous day. Continues to have good urine output of 900 cc in 24 hours as of afternoon. However, renal function continues to decline with BUN 105, creatinine 4.8, GFR 15. Patient spoke to Dr. Teague on 04/17 who stated that she will try and see the patient today but if not we will have to see him on Friday. Spoke to patient about possibility of dialysis given that renal function has not improved with albumin challenge. Phosphorus continues to be high on sevelamer 800 mg p.o. 3 times daily. Potassium noted to increase from 5.2-5.9 and repeat showed potassium of 6.1 so we will give [place] 8.4 g x 1, breathing treatment x 1, and repeat potassium later to see if insulin is indicated. However, will be cautious given with insulin given renal failure. 04/19: Seen and examined at bedside in telemetry. Noted to have RR at 2023 HR up to 160s with associated palpitations but no shortness of breath, chest pain, or lightheadedness. SBP in 130s and given Lopressor 2.5 mg IV. Upon evaluation, patient did not endorse any symptoms. Continues to have good UOP with total of 900 cc on 04/18. Potassium noted to be 5.4 in a.m. after receiving albuterol and insulin overnight. Will give another breathing treatment and repeat BMP in afternoon showed potassium of 5.0. However, renal function has not been improving with albumin with BUN of 102 and creatinine 5.2. Called Dr. Teague who stated that patient will require urgent dialysis and spoke to patient and family who are in agreement. Thus, temporary dialysis catheter placed and plans for first session tomorrow morning. Otherwise, calcium repleted and will stop trending troponin given decreased kidney function and that it is likely not clearing. 04/20: Seen and examined at bedside while undergoing dialysis, tolerating well. This is patient's second session in total and planned for third tomorrow. Additionally, plans for placement of TDC tomorrow as well and thus will keep patient n.p.o. after midnight. After third session, will continue dialysis at [facility] [place] for chronic dialysis needs. Cardiology consulted and recommends 50 mg of metoprolol daily for A-fib and the heart rate has been rate controlled in 70s and 80s. 04/21: Seen and examined at bedside while undergoing third session of dialysis and tolerating well, planning to remove 2-3 L as tolerated. He is also status- post replacement of temporary dialysis catheter for tunneled-dialysis catheter. Current plans are to undergo outpatient dialysis but pending HBcAb for dialysis chair. Otherwise, electrolytes (K, Phos, Ca) and BUN and Cr have improved after starting dialysis. Continues to be on metoprolol 50 mg daily for a-fib and has been rate controlled. 04/22: Seen examined at bedside in telemetry. Has undergone a total of 3 dialysis sessions and hepatitis panel and PPD skin test negative. Pending HBcAb and outpatient dialysis chair. Otherwise, patient saturating well on 2 L nasal cannula and denies feeling short of breath. Per social work msw note, insurance verification still pending. Exam Vital Signs Temp Pulse Resp BP Pulse Ox O2 Del Method O2 Flow Rate 97.2 F 84 18 136/73 H 96 Nasal Cannula 2 04/22/24 08:00 04/22/24 08:45 04/22/24 08:00 04/22/24 08:45 04/22/24 08:00 04/22/24 03:26 04/22/24 07:38 Narrative Exam General: AOx3, on 1L NC, able to speak full sentences HEENT: NC/AT, mucous membranes moist, bilateral sclera anicteric Cardiovascular: Tachycardic, regular rhythm, S1/S2 present, no murmurs appreciated Pulmonary: clear to auscultation bilaterally Abdominal: s/p paracentesis, distended, soft, non-tender, no rebound/guarding Musculoskeletal: 2+ bilateral lower extremity pitting edema, improving Skin: chronic venous stasis changes in BLE Neuro: CN II-XII intact, no focal deficits Objective Labs 04/22/24 05:00 04/23/24 05:24 Labs: Laboratory Results - last 24 hr 04/22/24 05:00 WBC 6.0 RBC 3.46 L Hgb 9.4 L Hct 29.9 L MCV 86 MCH 27.2 MCHC 31.4 RDW Std Deviation 49.9 H Plt Count 86 L Neut % (Auto) 72 Lymph % (Auto) 15 [place] % (Auto) 8 Eos % (Auto) 5 Baso % (Auto) 0 Neut # (Auto) 4.3 Lymph # (Auto) 0.9 L [place] # (Auto) 0.5 Eos # (Auto) 0.3 Baso # (Auto) 0.0 Immature Gran # (Auto) 0.01 H Absolute Nucleated RBC 0.00 Immature Gran % 0 Nucleated RBC % 0 Sodium 141 Potassium 4.6 Chloride 103 Carbon Dioxide 27.4 Anion Gap 11 BUN 54 H Creatinine 4.0 H Estim Creat Clear Calc 33.4 L eGFR 19 L BUN/Creatinine Ratio 14 Glucose 86 Calculated Osmolality 294 Calcium 7.9 L Corrected Calcium 8.5 Phosphorus 3.5 Magnesium 1.9 Total Bilirubin 1.1 AST 11 ALT < 7 L Alkaline Phosphatase 110 Total Protein 5.9 Albumin 3.3 L Globulin 2.6 Albumin/Globulin Ratio 1.3 ABG Interpretation ABG results: 04/16/24 19:09 ABG pH 7.32 L ABG pCO2 39 ABG pO2 55 L* ABG HCO3 20 ABG O2 Saturation 88 L ABG Base Excess -6 L Quality Measures Quality Measures VTE prophylaxis (Heparin on hold) Assessment & Plan Assessment Current Active Medications: Generic Name Dose Route Start Last Admin Trade Name Freq PRN Reason Stop Dose Admin Acetaminophen 650 mg 04/16/24 21:30 Acetaminophen 325 Mg Tablet PO 05/16/24 21:29 Q6H PRN Fever >100 or pain 1-3 Al Hydrox/Mg Hydrox/Simethicone 30 ml 04/17/24 17:59 04/17/24 18:12 Mg Hyd/Al Hyd/Odetet (Maalox Reg) Susp 30 Ml Udc PO 05/17/24 17:58 30 ml Q4HR PRN Administration UPSET STOMACH/INDIGESTION Dextrose 25 ml 04/17/24 07:57 Dextrose 50%-Water Inj 50 Ml Syringe IV 05/17/24 07:56 Q15MIN PRN BG 50-70 responsive npo pt Dextrose 50 ml 04/17/24 07:57 Dextrose 50%-Water Inj 50 Ml Syringe IV 05/17/24 07:56 Q15MIN PRN BG <50 OR BG <70 & pt unresponsive Glucagon 1 mg 04/17/24 07:57 Glucagon Inj 1 Mg Vial IM Q15MIN PRN BG <70, and no IV access Heparin Sodium (Porcine) 5,000 unit 04/17/24 09:00 04/20/24 11:47 Heparin Sod Inj 5000 Unit/Ml Vial SC 05/01/24 08:59 Not Given Q12HR [place] Heparin Sodium (Porcine) 2,500 unit 04/19/24 18:16 04/21/24 11:01 Heparin Sod Inj 1000 Unit/Ml Vial 10 Ml INDWELLCAT 05/03/24 18:15 2,500 unit X1 PRN Administration DIALYSIS Levalbuterol HCl 0.63 mg 04/18/24 20:47 Levalbuterol Rt 0.63 Mg/3 Ml Nebu INH 05/18/24 20:46 Q8HR PRN WHEEZING Metoprolol Succinate 50 mg 04/20/24 09:00 04/22/24 08:45 Metoprolol Succinate Xl 25 Mg Tabcr PO 05/20/24 08:59 50 mg QDAY [place] Administration Ondansetron HCl 4 mg 04/16/24 21:30 04/17/24 08:41 Ondansetron Inj 2 Mg/Ml Inj 2 Ml IV 05/16/24 21:29 4 mg Q6H PRN Administration NAUSEA OR VOMITING Protocol Pantoprazole Sodium 40 mg 04/17/24 09:00 04/22/24 08:44 Pantoprazole 40 Mg Tablet PO 05/17/24 08:59 40 mg QDAY [place] Administration Pharmacy Consult 1 each 04/18/24 10:17 Pharmacy Renal Dose Adjustment 1 Ea XX 05/18/24 10:16 PRN PRN CONSULT Sennosides 1 tab 04/17/24 08:15 04/21/24 17:10 Senna Tablet PO 05/17/24 08:14 1 tab QDAY PRN Administration CONSTIPATION Protocol Sevelamer Carbonate 800 mg 04/17/24 08:00 04/22/24 11:58 Sevelamer Carbonate 800 Mg Tablet PO 05/17/24 07:59 800 mg TIDWM [place] Administration Plan Barry Rahman is a 38-y/o male with a PMHx of nephrotic syndrome, DVT (previously on Eliquis in 2019), hypertension, morbid obesity presented on 04/16 for lower extremity/abdominal/scrotal swelling x 3 months. Noted to have been diagnosed with nephrotic syndrome 7 years ago but lost to follow-up from metal fabricating inspector, Dr. Teague, 3 years ago. Due to pain in his legs and scrotum, presented to ED. Admitted for acute renal failure. #Acute renal failure likely secondary to #?Hepatorenal syndrome #?Nephrotic syndrome likely secondary to chronic kidney disease #Anasarca likely secondary to acute decompensated liver failure versus NAIDA on CKD Attempted albumin challenge and no improvement in renal function. SAAG of 1.4 (> 1.1), indicating portal HTN as etiology of ascites. Now has TDC and s/p third session of HD, tolerated sessions well. PPD skin test and hepatitis panel negative. Plan for dialysis for 3 days straight and increment doses and afterwards will be placed at dialysis center at [place] for chronic dialysis needs. ? Nephrology consulted, appreciate recommendations ? Dialysis as planned per nephrology ? Sevelamer 800 mg p.o. 3 times daily ? Renally dose medications, avoid nephrotoxic agents if possible #Atrial fibrillation, likely paroxysmal #HFrEF (EF 25-30%), secondary to dilated cardiomyopathy (new diagnosis) #NSTEMI type II likely secondary to demand ischemia #Pericadial effusion BNP [address] showed mild-moderate enlarged cardiac contour, prominent vascular congestion and bilateral pulmonary edema. Echo 04/19: dilated cardiomyopathy with severe LV dysfunction. EF 25 to 30%. LA severely dilated, RA mildly dilated. Small pericardial effusion. ? Cardiology consulted for a-fib in setting of hyperkalemia and after nebulization ? Metoprolol succinate 50 mg daily ? 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 CT A/P showed heart failure, vascular congestion, pericardial effusion, cirrhosis, and significant ascites. US scrotum: Large bilateral hydroceles with scrotal wall edema. Status post paracentesis removal of 11 L with 50 g of albumin given. No significant history of EtOH consumption or portal HTN and hepatitis panel (- ). 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 ? Outpatient follow-up #AHRF secondary to influenza pneumonia Tamiflu 30 mg twice daily (renally dosed, 04/17-04/22) ? DuoNebs ? Wean down supplemental O2 as tolerated #History of hypertension Home hydralazine 100 mg TID -> holding due to to concern for hypotension after paracentesis ? Hold off on ISABELA and ARB's #History of normocytic anemia, likely secondary to CKD ? Consider iron tablets on discharge #History of DVT No blood thinner as home. D-dimer around 3000 on admission, DVT lower extremity negative. Hospital management: Disposition: pending outpatient dialysis chair s/p 3rd HD session inpatient Fluids: none Diet: renal Lines: PIV DVT prophylaxis: heparin SC GI prophylaxis: pantoprazole IV Starr: DC'd CODE STATUS: full code ----- Plan discussed with attending physician Dr. Tobin and senior resident physician Dr. Sharda Loyd MD PGY-1 Internal Medicine Attending Provider Attestation/Addendum I have examined the patient, reviewed labs and imaging findings, discussed the case with the resident(s), and reviewed entered orders. I agree with the plan of care as outlined in this note, with these additional summaries/recommendations: Patient seen at bedside. No acute overnight events. Patient appears comfortable and has no new complaints today. He is status post tunneled dialysis catheter. He has received 3 inpatient hemodialysis sessions. Acute hepatitis panel negative. Patient is pending hep B core total antibody before being accepted to outpatient hemodialysis center. player services representative following and patient can likely be discharged once serology result is back. In the meantime he will have to remain hospitalized. In-house nephrology following, and we will continue hemodialysis. Acute renal failure possibly secondary to diabetic nephropathy although A1c is relatively controlled in EMR. Nonetheless continue hemodialysis. Renally dose medications and avoid nephrotoxic agents. Cardiology following for paroxysmal atrial fibrillation. We will defer anticoagulation given relatively low [id number] score although we will continue to further discussions. Continue metoprolol. Patient also noted to have HFrEF. Echocardiogram revealed EF 25 to 30%. Started on metoprolol for goal-directed medical therapy. Continue hemodialysis for preload reduction. For afterload reduction we will attempt to start ISABELA/ARB as tolerated. Patient updated on the plan and in agreement. All questions answered to satisfaction. Repeat hematology and chemistry panel in AM. Dr. Crista MD
--- NOTE | 2024-04-22 14:09 | ESPR_ITS ---
<Statement entered by Leah Olea MD - 04/27/24 12:22> I personally examined the patient with PGY [address] JC, the patient is doing fairly well cardiac penny stable no evidence of heart failure paroxysmal A-fib continue medical management patient close for now agree with plan recommendation as recommended and documented by resident physician with my supervision Documentation for date of: 04/22/24 Subjective Subjective Interval history: The patient is evaluated bedside, no respiratory distress, feels better. Tunneled dialysis catheter was placed yesterday, waiting for hepatitis serology and tuberculosis testing to be set up for outpatient hemodialysis chair. Telemetry review shows, patient is converted to sinus rhythm, maintaining sinus rhythm with infrequent premature atrial complexes. Continue with metoprolol 50 mg daily. Will consider starting low dose ARB, considering concomitant ESRD with HD and CHF. Exam Vital Signs Temp Pulse Resp BP Pulse Ox O2 Del Method O2 Flow Rate 97.3 F 81 17 143/89 H 96 Room Air 2 04/22/24 12:04/22/24 12:04/22/24 12:04/22/24 12:04/22/24 12:04/22/24 12:04/22/24 07:38 Narrative Exam General: AOx3, laying propped up, on 1L NC o2 , able to speak full sentences HEENT: NC/AT, mucous membranes moist, bilateral sclera anicteric Cardiovascular: Tachycardic, regular rhythm, S1/S2 present, no murmurs appreciated Pulmonary: improved air entry compared to last exam, minimal rhonchi Abdominal: s/p paracentesis, distended, soft, non-tender, no rebound/guarding Musculoskeletal: 2+ bilateral lower extremity pitting edema , swelling visibly reduced. Skin: chronic venous stasis changes in BLE Neuro: CN II-XII intact, no focal deficits Objective Labs 04/22/24 05:00 04/22/24 05:00 Labs: Laboratory Results - last 24 hr 04/22/24 05:00 WBC 6.0 RBC 3.46 L Hgb 9.4 L Hct 29.9 L MCV 86 MCH 27.2 MCHC 31.4 RDW Std Deviation 49.9 H Plt Count 86 L Neut % (Auto) 72 Lymph % (Auto) 15 [place] % (Auto) 8 Eos % (Auto) 5 Baso % (Auto) 0 Neut # (Auto) 4.3 Lymph # (Auto) 0.9 L [place] # (Auto) 0.5 Eos # (Auto) 0.3 Baso # (Auto) 0.0 Immature Gran # (Auto) 0.01 H Absolute Nucleated RBC 0.00 Immature Gran % 0 Nucleated RBC % 0 Sodium 141 Potassium 4.6 Chloride 103 Carbon Dioxide 27.4 Anion Gap 11 BUN 54 H Creatinine 4.0 H Estim Creat Clear Calc 33.4 L eGFR 19 L BUN/Creatinine Ratio 14 Glucose 86 Calculated Osmolality 294 Calcium 7.9 L Corrected Calcium 8.5 Phosphorus 3.5 Magnesium 1.9 Total Bilirubin 1.1 AST 11 ALT < 7 L Alkaline Phosphatase 110 Total Protein 5.9 Albumin 3.3 L Globulin 2.6 Albumin/Globulin Ratio 1.3 ABG Interpretation ABG results: 04/16/24 19:09 ABG pH 7.32 L ABG pCO2 39 ABG pO2 55 L* ABG HCO3 20 ABG O2 Saturation 88 L ABG Base Excess -6 L Quality Measures Quality Measures VTE prophylaxis (Heparin on hold) Assessment & Plan Assessment Current Active Medications: Generic Name Dose Route Start Last Admin Trade Name Freq PRN Reason Stop Dose Admin Acetaminophen 650 mg 04/16/24 21:30 Acetaminophen 325 Mg Tablet PO 05/16/24 21:29 Q6H PRN Fever >100 or pain 1-3 Al Hydrox/Mg Hydrox/Simethicone 30 ml 04/17/24 17:59 04/17/24 18:12 Mg Hyd/Al Hyd/[place] (Maalox Reg) Susp 30 Ml Udc PO 05/17/24 17:58 30 ml Q4HR PRN Administration UPSET STOMACH/INDIGESTION Dextrose 25 ml 04/17/24 07:57 Dextrose 50%-Water Inj 50 Ml Syringe IV 05/17/24 07:56 Q15MIN PRN BG 50-70 responsive npo pt Dextrose 50 ml 04/17/24 07:57 Dextrose 50%-Water Inj 50 Ml Syringe IV 05/17/24 07:56 Q15MIN PRN BG <50 OR BG <70 & pt unresponsive Glucagon 1 mg 04/17/24 07:57 Glucagon Inj 1 Mg Vial IM Q15MIN PRN BG <70, and no IV access Heparin Sodium (Porcine) 5,000 unit 04/17/24 09:00 04/20/24 11:47 Heparin Sod Inj 5000 Unit/Ml Vial SC 05/01/24 08:59 Not Given Q12HR LU Heparin Sodium (Porcine) 2,500 unit 04/19/24 18:16 04/21/24 11:01 Heparin Sod Inj 1000 Unit/Ml Vial 10 Ml INDWELLCAT 05/03/24 18:15 2,500 unit X1 PRN Administration DIALYSIS Levalbuterol HCl 0.63 mg 04/18/24 20:47 Levalbuterol Rt 0.63 Mg/3 Ml Nebu INH 05/18/24 20:46 Q8HR PRN WHEEZING Metoprolol Succinate 50 mg 04/20/24 09:00 04/22/24 08:45 Metoprolol Succinate Xl 25 Mg Tabcr PO 05/20/24 08:59 50 mg QDAY LU Administration Ondansetron HCl 4 mg 04/16/24 21:30 04/17/24 08:41 Ondansetron Inj 2 Mg/Ml Inj 2 Ml IV 05/16/24 21:29 4 mg Q6H PRN Administration NAUSEA OR VOMITING Protocol Pantoprazole Sodium 40 mg 04/17/24 09:00 04/22/24 08:44 Pantoprazole 40 Mg Tablet PO 05/17/24 08:59 40 mg QDAY LU Administration Pharmacy Consult 1 each 04/18/24 10:17 Pharmacy Renal Dose Adjustment 1 Ea XX 05/18/24 10:16 PRN PRN CONSULT Sennosides 1 tab 04/17/24 08:15 04/21/24 17:10 Senna Tablet PO 05/17/24 08:14 1 tab QDAY PRN Administration CONSTIPATION Protocol Sevelamer Carbonate 800 mg 04/17/24 08:00 04/22/24 11:58 Sevelamer Carbonate 800 Mg Tablet PO 05/17/24 07:59 800 mg TIDWM LU Administration Plan Problems: 1. Paroxysmal atrial fibrillation?rate controlled Patient denied a prior medical history of palpitations or atrial fibrillation, EKG on admission showed A-fib with incomplete BBB on 04/16/2024, apparently patient has been going in and out of A-fib, EKG on 04/18/2024 showed patient was in sinus rhythm, A-fib RVR heart rate in the 150s to 160s on 04/18/2024, following nebulization, DuoNebs changed to levalbuterol. Responded to low-dose beta- blockade, at the time of evaluation today, patient's rhythm continued slipping in and out of atrial fibrillation, rate controlled and reverted into sinus rhythm. ? Metoprolol succinate 50 mg daily, monitor for hypotension. ? [id number] score is 2, given patient's relatively young age and low CHA2DS score can defer anticoagulation at a later time. ? Responding well to rate control by metoprolol 50mg qday, hr staying b/w 70- 90's, no events overnight. Pt will benefit intermediate from maintaining sinus rhythm given his relatively young age, especially in the setting of cardiomyopathy and HfrEF, rythmic atrial contraction will likely improve cardiac output slightly. Will continue to monitor, staying in afib for now, conisdered amiodarone but considering cirrhosis , CHILD Cesar class B, MELD 19, will avoid, other options for rythm control including flecainide, sotalol also contraindicated due to similar indications of HD and cirrhosis. Dronedarone can be considered in mild-moderate liver failure but contraindicated in severe cirrhosis. risk benefit discussion will be held. ? Converted to sinus rhythm with infrequent premature atrial complexes, maintain ing sinus rythm for now without anti arrhythmics, continue with rate control metoprolol. 2. HFrEF secondary to dilated cardiomyopathy Echocardiogram shows finding consistent with dilated cardiomyopathy, grade 3 diastolic dysfunction. restrictive filling pattern, estimated EF 25 to 30%, severely increased left atrial volume. Urine output 500 mL with 24 hours, despite 80 mg IV Lasix twice daily. Started on hemodialysis by nephrology. Patient does seem to be on the heavier side 122 kg, likely significant water weight secondary to anasarca. Physical exam pertinent for bilateral pleural effusions. ? Metoprolol succinate 50 mg daily, monitor for hypotension,, slowly introduce rest of GDMT as tolerated. ? evidence suggests all cause mortalitiy benefit, Libradoe et al. 2010, with ARB and MRA for HfrEF patients on lu hemodialysis. will consider low dose ARB losartan 25 mg qday and later introducing spironolactone 25mg , after discussing with dr Olea, monitoring for hypotension and hyperkalemia. 3. Hyperkalemia- resolved Failure to respond to hyperkalemia cocktail, persistent hyperkalemia despite medical therapy, initiated hemodialysis. - management per nephrology and primary team 4. Type II TX Troponin elevation in the setting of A-fib RVR, likely supply/demand mismatch leading to troponin elevation, The patient denied any chest pain, or orthopnea or diaphoresis, continue with medical management. 5. End-stage renal disease on hemodialysis Requiring hemodialysis due to fluid overload and hyperkalemia not responding to medical management, - management per nephrology. tunneled dialysis catherter is placed and pending outpt hemodilaysis chair, - evidence suggests all cause mortalitiy benefit, with ARB and MRA for HfrEF patients on lu hemodialysis. will consider low dose ARB losartan 25 mg qday and later introducing spironolactone 25mg , monitoring for hypotension and hyperkalemia. 6. Anemia 7. Thrombocytopenia 4T score is 3 , low probability of HIT, onset of thrombocytopenia <72 within 48 hrs of admission, less likely HIT. Plan of care discussed with heat treat operator Dr. Geo Olea. Jovani PGY2
[2024-04-22] MEDS: EPOETIN ALFA-EPBX INJ 10,000 UNIT/ML VIAL (NON-ESRD) 10000 UNIT SC (17:34)
[2024-04-22] MEDS: BENZONATATE 100 MG CAPSULE PO (18:08)
--- NOTE | 2024-04-22 18:55 | ESPR_ITS ---
RE: ALLI [place] : 1985 DATE OF SERVICE: 04/22/2024 HISTORY OF PRESENT ILLNESS: This patient is a 38-year-old Citizen Of [place] gentleman with type 2 diabetes since he was 24 years old with nephrotic syndrome, whose proteinuria way back in 2018 was 8.8 g, right leg DVT, hypertension, morbid obesity, fatty liver, now liver cirrhosis, who presented to the emergency room on 04/16/2024 with anasarca. The patient was also very weak and was short of breath and was found with positive influenza B. The patient was also started on Tamiflu 30 mg p.o. daily. When he was admitted, he was found with BUN of 98 and creatinine of 4.1 and he also had ascites. While in the hospital, he had a large volume paracentesis. He was started on IV Lasix initially; however, despite Lasix, remained volume overloaded. The patient's potassium level was also difficult to control and his BUN also felecia to 102 with creatinine of 5.2 and dwindling urine output. He was started on dialysis on 04/19/2024. He also had a permanent dialysis catheter placement on 04/21/2024. The patient is doing well and anticipates to be discharged anytime this week. CURRENT MEDICATIONS: 1. Acetaminophen. 2. Clindamycin. 3. Epogen 56716 units x1. 4. Midazolam. 5. Ondansetron. 6. Tamiflu 30 mg p.o. daily. 7. Pantoprazole 40 mg p.o. daily. 8. Sevelamer 800 mg p.o. t.i.d. with meals. PHYSICAL EXAMINATION: General: He is awake, alert, and oriented. Vital Signs: Blood pressure is 140/89, heart rate of 81, and temperature 97.3. HEENT: Anicteric sclerae. Normocephalic. Neck: Supple. JVD. Chest and Lungs: Symmetric expansion. Decreased breath sounds bilaterally. Cardiac: Without murmur. Abdomen: Distended with ascites. Extremities: 2-3+ peripheral edema. LABORATORY DATA: Sodium 141, potassium 4.6, chloride 103, CO2 of 27.4, BUN 54, creatinine 4, glucose 86, calcium 8.5, and albumin 3.3. Hemoglobin 9.4, WBC 6000, and platelet count 86,000. ASSESSMENT: 1. End-stage renal disease. 2. Morbid obesity. 2. Anasarca secondary to liver cirrhosis and nephrotic syndrome and end-stage renal disease. 4. Type 2 diabetes. 5. Hypertension. 6. Anemia of chronic kidney disease. 7. Hyperkalemia secondary to advanced chronic kidney disease, now improved. 8. History of fatty liver, which progressed to liver cirrhosis. 9. Hypoxia, now improved. 10. Vascular congestion. 11. Type 2 [id number] myocardial infarction. PLAN: The patient had tunneled dialysis catheter on 04/21/2024. The patient will be dialyzed again tomorrow and hopefully will be discharged to home sometime this week. I will give him one dose of Retacrit 94290 units subcutaneously. DT: 17:33:31 TT: 18:53:00 Ref: [id number] - TID: [id number] MTDD
[2024-04-22] MEDS: HEPARIN SOD INJ 5000 UNIT/ML VIAL SC (20:09)
[2024-04-23] VITALS (23 sets, daily range): BP systolic 118–157; BP diastolic 71–103; PULSE 68–98; RESP 18–20; TEMP 36.7–37.3; O2SAT 94–97; BMI 35.6
[2024-04-23 07:11] LABS: Alanine Aminotransferase < 7 U/L (10-49); Albumin, Serum 3.2 gm/dL (3.5-5.0); Albumin/Globulin Ratio 1.2 (1.2-2.2); Alkaline Phosphatase 121 U/L (46-116); Anion Gap 10 (7-16); Aspartate Amino Transferase 14 U/L (0-34); BUN/Creatinine Ratio 13 Ratio (12-20); Bilirubin,Total 1.1 mg/dL (0.3-1.2); Blood Urea Nitrogen 63 mg/dL (9-23); Calcium 7.8 mg/dL (8.3-10.6); Calcium (Corrected) 8.4 mg/dL (8.5-10.1); Chloride 102 mMol/L (98-107); Creatinine (Component) 4.9 mg/dL (0.6-1.3); Estimated Creatinine Clearance 27.3 mL/min (>60); Globulin 2.6 gm/dL (2.3-3.5); Glucose 85 mg/dL (74-106); Magnesium 1.9 mg/dL (1.6-2.6); Osmolality,Calculated 294 (275-295); Phosphorous 3.1 mg/dL (2.4-5.1); Potassium 4.5 mMol/L (3.4-5.1); Sodium 139 mMol/L (136-145); Total Protein 5.8 gm/dL (5.7-8.2); eGFR 15 See Note
[2024-04-23 07:26] LABS: Basophils % (Auto) 0 % (0-2.5); Eosinophils # (Auto) 0.3 Thou/mm3 (0.0-0.5); Eosinophils % (Auto) 4 % (0-10); Hematocrit 27.9 % (41.0-53.0); Hemoglobin 8.9 g/dL (13.5-16.0); Immature Granulocytes % (Auto) 0 % (0-0); Immature Granulocytes Auto 0.02 Thou/mm3 (0.00-0.00); Lymphocytes # (Auto) 1.1 Thou/mm3 (1.0-4.8); Lymphocytes % (Auto) 15 % (10-50); Mean Corpuscular HGB Conc 31.9 g/dl (31.0-37.0); Mean Corpuscular Hemoglobin 27.6 pg (25.0-35.0); Mean Corpuscular Volume 87 fL (80-100); Monocytes # (Auto) 0.7 Thou/mm3 (0.0-0.8); Monocytes % (Auto) 10 % (0-12); Neutrophils # (Auto) 5.1 Thou/mm3 (1.8-7.7); Neutrophils % (Auto) 71 % (37-80); Nucleated Red Blood Cell % 0 /100 WBC (0); Platelet Count 135 Thou/mm3 (140-440); RDW Standard Deviation 49.5 fL (35.1-43.9); Red Blood Count 3.22 Miln/mm3 (4.50-5.90); White Blood Count 7.2 Thou/mm3 (3.8-10.6)
[2024-04-23] MEDS: METOPROLOL SUCCINATE XL 25 MG TABCR 50 MG PO (09:04)
[2024-04-23] MEDS: SEVELAMER CARBONATE 800 MG TABLET PO ×3 (09:04→17:33)
[2024-04-23] MEDS: Magnesium Sulfate 1 gm Ivpb 1 GM/100 ML BAG IV (09:06)
[2024-04-23] MEDS: PANTOPRAZOLE 40 MG TABLET PO (09:07)
[2024-04-23] MEDS: HEPARIN SOD INJ 5000 UNIT/ML VIAL SC (09:08)
--- NOTE | 2024-04-23 11:34 | PC.SS ---
SS called [facility] spoke to Chelsie, per Chelsie they are still pending PPD Skin results and Perm Cath placement report. SS XM Faxed requested documents to [facility].
[2024-04-23] MEDS: LOSARTAN POTASSIUM 25 MG TABLET PO (11:41)
--- NOTE | 2024-04-23 12:30 | CHAP ---
Patient was visited by the Spiritual Care Volunteer who prayed for them. (Volunteer was in the hospital from 09:30-12:30)
--- NOTE | 2024-04-23 14:31 | PC.SS ---
Addendum entered by Fara Salinas 04/23/24 14:34: SS provided pt with print out of chair time and clinic information Original Note: SS spoke to Chelsie killian [facility] chair time given M/W/F [id number]
--- NOTE | 2024-04-23 15:07 | ESPR_ITS ---
<Statement entered by Leah Olea MD - 04/27/24 12:22> I personally examined the patient with PGY [address] JC, the patient is doing fairly well cardiac penny stable no evidence of heart failure paroxysmal A-fib continue medical management patient close for now agree with plan recommendation as recommended and documented by resident physician with my supervision Documentation for date of: 04/23/24 Subjective Subjective Interval history: The patient is evaluated bedside, no active complaints, stated that he had a rough light last night due to discomfort and pain of the lower extremities, stated pain was worse on walking, but since morning the pain has subsided. On physical exam still lower extremity edema, which is improved from previous exam and chronic venous stasis changes persist, asymptomatic at the moment, no chest pain or palpitations reported. Telemetry review shows patient's rhythm flipping in and out of sinus rhythm, maintaining sinus rhythm for quite some time but eventually returns to A-fib. Pending hemodialysis later in the afternoon. Exam Vital Signs Temp Pulse Resp BP Pulse Ox O2 Del Method O2 Flow Rate 98.4 F 82 18 137/86 H 95 Nasal Cannula 1 04/23/24 11:53 04/23/24 15:04 04/23/24 11:53 04/23/24 15:04 04/23/24 11:53 04/23/24 08:00 04/23/24 11:53 Narrative Exam General: AOx3, laying propped up, on 1L NC o2 , able to speak full sentences HEENT: NC/AT, mucous membranes moist, bilateral sclera anicteric Cardiovascular: Tachycardic, regular rhythm, S1/S2 present, no murmurs appreciated Pulmonary: improved air entry compared to last exam, minimal rhonchi Abdominal: s/p paracentesis, distended, soft, non-tender, no rebound/guarding Musculoskeletal: 2+ bilateral lower extremity pitting edema , swelling visibly reduced. Complained of pain, but nontender left lower extremity on palpation. Skin: chronic venous stasis changes in BLE Neuro: CN II-XII intact, no focal deficits Objective Labs 04/23/24 07:10 04/23/24 05:24 Labs: Laboratory Results - last 24 hr 04/23/24 04/23/24 05:24 07:10 WBC 7.2 RBC 3.22 L Hgb 8.9 L Hct 27.9 L MCV 87 MCH 27.6 MCHC 31.9 RDW Std Deviation 49.5 H Plt Count 135 L D Neut % (Auto) 71 Lymph % (Auto) 15 [place] % (Auto) 10 Eos % (Auto) 4 Baso % (Auto) 0 Neut # (Auto) 5.1 Lymph # (Auto) 1.1 [place] # (Auto) 0.7 Eos # (Auto) 0.3 Baso # (Auto) 0.0 Immature Gran # (Auto) 0.02 H Absolute Nucleated RBC 0.00 Immature Gran % 0 Nucleated RBC % 0 Sodium 139 Potassium 4.5 Chloride 102 Carbon Dioxide 27.0 Anion Gap 10 BUN 63 H Creatinine 4.9 H* D Estim Creat Clear Calc 27.3 L eGFR 15 L BUN/Creatinine Ratio 13 Glucose 85 Calculated Osmolality 294 Calcium 7.8 L Corrected Calcium 8.4 L Phosphorus 3.1 Magnesium 1.9 Total Bilirubin 1.1 AST 14 ALT < 7 L Alkaline Phosphatase 121 H Total Protein 5.8 Albumin 3.2 L Globulin 2.6 Albumin/Globulin Ratio 1.2 ABG Interpretation ABG results: 04/16/24 19:09 ABG pH 7.32 L ABG pCO2 39 ABG pO2 55 L* ABG HCO3 20 ABG O2 Saturation 88 L ABG Base Excess -6 L Quality Measures Quality Measures VTE prophylaxis (Heparin on hold) Assessment & Plan Assessment Current Active Medications: Generic Name Dose Route Start Last Admin Trade Name Freq PRN Reason Stop Dose Admin Acetaminophen 650 mg 04/16/24 21:30 Acetaminophen 325 Mg Tablet PO 05/16/24 21:29 Q6H PRN Fever >100 or pain 1-3 Al Hydrox/Mg Hydrox/Simethicone 30 ml 04/17/24 17:59 04/17/24 18:12 Mg Hyd/Al Hyd/Odette (Maalox Reg) Susp 30 Ml Udc PO 05/17/24 17:58 30 ml Q4HR PRN Administration UPSET STOMACH/INDIGESTION Benzonatate 100 mg 04/22/24 17:40 04/22/24 18:08 Benzonatate 100 Mg Capsule PO 05/22/24 17:39 100 mg Q8HR PRN Administration COUGH Protocol Dextrose 25 ml 04/17/24 07:57 Dextrose 50%-Water Inj 50 Ml Syringe IV 05/17/24 07:56 Q15MIN PRN BG 50-70 responsive npo pt Dextrose 50 ml 04/17/24 07:57 Dextrose 50%-Water Inj 50 Ml Syringe IV 05/17/24 07:56 Q15MIN PRN BG <50 OR BG <70 & pt unresponsive Glucagon 1 mg 04/17/24 07:57 Glucagon Inj 1 Mg Vial IM Q15MIN PRN BG <70, and no IV access Heparin Sodium (Porcine) 5,000 unit 04/17/24 09:00 04/23/24 09:08 Heparin Sod Inj 5000 Unit/Ml Vial SC 05/01/24 08:59 5,000 unit Q12HR [place]OR[place] Administration Heparin Sodium (Porcine) 2,500 unit 04/19/24 18:16 04/21/24 11:01 Heparin Sod Inj 1000 Unit/Ml Vial 10 Ml INDWELLCAT 05/03/24 18:15 2,500 unit X1 PRN Administration DIALYSIS Levalbuterol HCl 0.63 mg 04/18/24 20:47 Levalbuterol Rt 0.63 Mg/3 Ml Nebu INH 05/18/24 20:46 Q8HR PRN WHEEZING Losartan Potassium 25 mg 04/23/24 11:00 04/23/24 11:41 Losartan Potassium 25 Mg Tablet PO 05/23/24 10:59 25 mg QDAY [place] Administration Metoprolol Succinate 50 mg 04/20/24 09:00 04/23/24 09:04 Metoprolol Succinate Xl 25 Mg Tabcr PO 05/20/24 08:59 50 mg QDAY [place] Administration Ondansetron HCl 4 mg 04/16/24 21:30 04/17/24 08:41 Ondansetron Inj 2 Mg/Ml Inj 2 Ml IV 05/16/24 21:29 4 mg Q6H PRN Administration NAUSEA OR VOMITING Protocol Pantoprazole Sodium 40 mg 04/17/24 09:00 04/23/24 09:07 Pantoprazole 40 Mg Tablet PO 05/17/24 08:59 40 mg QDAY [place] Administration Pharmacy Consult 1 each 04/18/24 10:17 Pharmacy Renal Dose Adjustment 1 Ea XX 05/18/24 10:16 PRN PRN CONSULT Sennosides 1 tab 04/17/24 08:15 04/21/24 17:10 Senna Tablet PO 05/17/24 08:14 1 tab QDAY PRN Administration CONSTIPATION Protocol Sevelamer Carbonate 800 mg 04/17/24 08:00 04/23/24 11:41 Sevelamer Carbonate 800 Mg Tablet PO 05/17/24 07:59 800 mg TIDWM [facility] Administration Plan Problems: 1. Paroxysmal atrial fibrillation?rate controlled Patient denied a prior medical history of palpitations or atrial fibrillation, EKG on admission showed A-fib with incomplete BBB on 04/16/2024, apparently patient has been going in and out of A-fib, EKG on 04/18/2024 showed patient was in sinus rhythm, A-fib RVR heart rate in the 150s to 160s on 04/18/2024, following nebulization, DuoNebs changed to levalbuterol. Responded to low-dose beta- blockade, at the time of evaluation today, patient's rhythm continued slipping in and out of atrial fibrillation, rate controlled and reverted into sinus rhythm. ? Metoprolol succinate 50 mg daily, monitor for hypotension. ? [id number] score is 2, given patient's relatively young age and low CHA2DS score can defer anticoagulation at a later time. ? Responding well to rate control by metoprolol 50mg qday, hr staying b/w 70- 90's, no events overnight. Pt will benefit [facility] from maintaining sinus rhythm given his relatively young age, especially in the setting of cardiomyopathy and HfrEF, rythmic atrial contraction will likely improve cardiac output slightly. Will continue to monitor, staying in afib for now, conisdered amiodarone but considering cirrhosis , CHILD Cesar class B, MELD 19, will avoid, other options for rythm control including flecainide, sotalol also contraindicated due to comorbidity associated with HD and cirrhosis. Dronedarone can be considered in mild-moderate liver failure but contraindicated in severe cirrhosis. risk benefit discussion will be held. ? Telemetry review shows patient's rhythm flipping in and out of sinus rhythm, maintaining sinus rhythm for quite some time but eventually returns to A-fib. , continue with rate control metoprolol. Will consider Multaq 2. HFrEF secondary to dilated cardiomyopathy Echocardiogram shows finding consistent with dilated cardiomyopathy, grade 3 diastolic dysfunction. restrictive filling pattern, estimated EF 25 to 30%, severely increased left atrial volume. Urine output 500 mL with 24 hours, despite 80 mg IV Lasix twice daily. Started on hemodialysis by nephrology. Patient does seem to be on the heavier side 122 kg, likely significant water weight secondary to anasarca. Physical exam pertinent for bilateral pleural effusions. ? Metoprolol succinate 50 mg daily, monitor for hypotension,, slowly introduce rest of GDMT as tolerated. ? Losartan 25 mg daily evidence suggests all cause mortalitiy benefit, Gennaro et al. 2010, with ARB and MRA for HfrEF patients on [facility] hemodialysis. 3. Hyperkalemia- resolved Failure to respond to hyperkalemia cocktail, persistent hyperkalemia despite medical therapy, initiated hemodialysis. - management per nephrology and primary team 4. Type II [place] Troponin elevation in the setting of A-fib RVR, likely supply/demand mismatch leading to troponin elevation, The patient denied any chest pain, or orthopnea or diaphoresis, continue with medical management. 5. End-stage renal disease on hemodialysis Requiring hemodialysis due to fluid overload and hyperkalemia not responding to medical management, - management per nephrology. tunneled dialysis catherter is placed and pending outpt hemodilaysis chair, - evidence suggests all cause mortalitiy benefit, with ARB and MRA for HfrEF patients on [facility] hemodialysis. will consider low dose ARB losartan 25 mg qday and later introducing spironolactone 25mg , monitoring for hypotension and hyperkalemia. 6. Anemia 7. Thrombocytopenia 4T score is 3 , low probability of HIT, onset of thrombocytopenia <72 within 48 hrs of admission, less likely HIT. Plan of care discussed with director of player personnel Dr. Geo Olea. Quresh PGY2
--- NOTE | 2024-04-23 15:58 | PC.SS ---
Follow up note: SS provided o/p dialysis schedule to nursing staff. Patient was currently in dialysis and will dc home after.
[2024-04-23] MEDS: HEPARIN SOD INJ 1000 UNIT/ML VIAL 10 ML 2500 UNIT INDWELLCAT (16:07)
--- NOTE | 2024-04-23 16:37 | ESDS_ITS ---
<Statement entered by Rod Robin MD - 04/23/24 17:15> I saw and examined the patient, and I agree with current management stated by Dr Evert MD,PGY1. Plan of care was discussed with the attending physician and resident physician. Disclaimer: Despite multiple revisions, due to the dictation software being used, the document bellow may not be free of grammatical errors including phonetic/typographic errors. However, this does not deter from our commitment to providing health care in the patient's best interest in mind. Dr. Sharda MD, PGY 2 Planned Discharge Date 04/23/24 DS: Providers Provider Date of admission: 04/16/24 21:30 Primary care physician: Physician No Primary/Family Admitting Provider: Chauncey Bedoya MD Attending Provider on Admission: Sekou Tobin MD Consults: 04/16/24 18:41 Consult to Nephrology Stat Comment: ARF Consulting Provider: Ivania Teague 04/19/24 13:37 Consult to Cardiology Stat Comment: Consulting Provider: Leah Olea Attending Provider on DC: Cyrus Loyd MD Discharging Provider: Cyrus Loyd MD DS: Diagnosis Problem List Completed Was Problem List Reviewed/Reconciled?: Yes Hospital Course Hospital Course Hospital course: Barry Rahman is a 38-y/o male with a PMHx of nephrotic syndrome, DVT (previously on Eliquis in 2019), hypertension, and morbid obesity presented on 04/16 for lower extremity/abdominal/scrotal swelling x 3 months and due to pain in his legs and scrotum and admitted for acute renal failure. Found to have a creatinine of 4.1 and most recent was 2.0 in 2021. Noted to have been diagnosed with nephrotic syndrome 7 years ago for vascular follow-up with highballer, Dr. Teague, 3 years ago. Imaging showed prominent vascular congestion, 14 mm p ericardial effusion, cirrhosis with significant ascites, large fluid containing inguinal hernias, and large bilateral hydroceles. On day after admission, he underwent paracentesis and removed 11 L. He was then given 75 g of albumin and started on Lasix 80 mg IV twice daily per nephrology recommendations as well as 100 g of IV albumin daily. Workup showed negative hepatitis panel. K was originally managed with insulin and albuterol treatments, however patient did have a rapid response for heart rate up to 60s with palpitations but hemodynamically stable. He did respond to low-dose Lopressor and cardiology was consulted. Echo was obtained and showed EF 25 to 30%, dilated cardiomyopathy and severe LV dysfunction and patient subsequently started on metoprolol succinate 50 mg daily to slowly introduce GDMT. Given that renal function and electrolytes were refractory to medical management, decision was made to start patient on hemodialysis and patient agreed. Temporary dialysis catheter placed and patient underwent 3 sessions of hemodialysis, after which temporary catheter was replaced with tunneled dialysis catheter and underwent fourth session. Renal function and electrolytes noted to markedly improve and was able to obtain outpatient chair at [facility] and was to continue dialysis M/W/. 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 Teague, within 1 week of discharge - Follow-up with biomedical repair technician, Dr. Olea, within 1 week of discharge - Continue taking metoprolol succinate 50 mg daily - Start taking losartan 25 mg daily - Continue taking sevelamer 800 mg three times per day with meals - Stop taking bumex and hydralazine, at least until you follow-up with your PCP - Continue outpatient dialysis at [facility] on // at 12:45 PM - Return to the ED if symptoms worsen or recur Time Spent with Patient Time attestation: Total time spent providing and/or coordinating discharge services: Exam Vital Signs Temp Pulse Resp BP Pulse Ox O2 Del Method O2 Flow Rate 98.6 F 94 18 134/89 H 97 Nasal Cannula 1 04/23/24 16:02 04/23/24 16:02 04/23/24 16:02 04/23/24 16:02 04/23/24 16:02 04/23/24 08:00 04/23/24 16:02 Narrative Exam General: AOx3, on 1L NC, able to speak full sentences HEENT: NC/AT, mucous membranes moist, bilateral sclera anicteric Cardiovascular: Tachycardic, regular rhythm, S1/S2 present, no murmurs appreciated Pulmonary: clear to auscultation bilaterally Abdominal: s/p paracentesis, distended, soft, non-tender, no rebound/guarding Musculoskeletal: 2+ bilateral lower extremity pitting edema, improving Skin: chronic venous stasis changes in BLE Neuro: CN II-XII intact, no focal deficits Discharge Plan Plan Patient Disposition: HOME (Self Care) Care Plan Goals: - Follow-up with your PCP within 1 week of discharge - Follow-up with highballer, Dr. Teague, within 1 week of discharge - Follow-up with biomedical repair technician, Dr. Olea, within 1 week of discharge - Continue taking metoprolol succinate 50 mg daily - Start taking losartan 25 mg daily - Continue taking sevelamer 800 mg three times per day with meals - Stop taking bumex and hydralazine, at least until you follow-up with your PCP - Continue outpatient dialysis at [facility] at 12:45 PM - Return to the ED if symptoms worsen or recur Prescriptions/Referrals Prescriptions/Med Rec: New metoprolol succinate 50 mg tablet extended release 24 hr 50 mg PO QDAY 30 Days Qty: 30 0RF losartan 25 mg Tablet 25 mg PO QDAY 30 Days Qty: 30 0RF sevelamer carbonate 800 mg Tablet 800 mg PO TIDWM 30 Days Qty: 30 0RF Discontinued bumetanide 2 mg tablet 2 mg PO BID Patient Comments: TAKE 1 TABLET BY MOUTH TWICE A DAY FOR 30 DAYS hydralazine 100 mg tablet 100 mg PO TID Patient Comments: TAKE 1 TABLET BY MOUTH 3 TIMES A DAY bumetanide 2 mg tablet 2 mg PO BID Qty: 30 1RF Referrals: No Primary/Family,Physician [Primary Care Provider] - Patient/Caregiver Discharge Instructions Education Materials: Understanding Cirrhosis, Hemodialysis Print Language: Setswana Stand Alone Forms: Corrie Award Info., Patient Portal Info Letter Discharge Order Discharge Orders: Discharge (Routine); Ordered 04/23/24 Ordered By: Cyrus Loyd Quality Discharge Quality Measures VTE prophylaxis MD Attestestation MD Attestation I have examined the patient, reviewed labs and imaging findings, discussed the case with the resident(s), and reviewed entered orders. I agree with the plan of care as outlined in this note. Dr. Crista MD
[2024-04-26 07:08] LABS: Hepatitis B Core Ab,Total* NONREACTIVE
== END 2024-04-23 18:00 | disposition home or self-care (01) | DRG 469 ==
LOC: SERX 19:41 → SERHOLD 23:12 → S2NX 23:28 → S3NX 04-23 15:49
PROVIDERS: Internal Medicine Nephrology; Nurse Practitioner Primary Care; Radiology Diagnostic Radiology; Student in an Organized Health Care Education/Training Program; Admitting Provider Internal Medicine; Emergency Provider Student in an Organized Health Care Education/Training Program; Visit Provider Student in an Organized Health Care Education/Training Program
DX: N17.9 Acute kidney failure, unspecified (principal); E66.01 Morbid (severe) obesity due to excess calories; N43.3 Hydrocele, unspecified; K74.60 Unspecified cirrhosis of liver; E87.5 Hyperkalemia; I31.39 Other pericardial effusion (noninflammatory); R18.8 Other ascites; D63.1 Anemia in chronic kidney disease; D69.6 Thrombocytopenia, unspecified; I13.2 Hypertensive heart and chronic kidney disease with heart failure and with stage 5 chronic kidney disease, or end stage renal disease; I21.A1 Myocardial infarction type 2; I42.0 Dilated cardiomyopathy; I48.0 Paroxysmal atrial fibrillation; E11.22 Type 2 diabetes mellitus with diabetic chronic kidney disease; E83.39 Other disorders of phosphorus metabolism; E83.51 Hypocalcemia; N18.6 End stage renal disease; I50.40 Unspecified combined systolic (congestive) and diastolic (congestive) heart failure; K72.00 Acute and subacute hepatic failure without coma; K75.81 Nonalcoholic steatohepatitis (NASH); J10.01 Influenza due to other identified influenza virus with the same other identified influenza virus pneumonia; J10.1 Influenza due to other identified influenza virus with other respiratory manifestations; J96.01 Acute respiratory failure with hypoxia; K40.20 Bilateral inguinal hernia, without obstruction or gangrene, not specified as recurrent; I45.4 Nonspecific intraventricular block; Z68.38 Body mass index [BMI] 38.0-38.9, adult; Z86.718 Personal history of other venous thrombosis and embolism; Z99.2 Dependence on renal dialysis; Z79.899 Other long term (current) drug therapy; Z88.0 Allergy status to penicillin
CPT/HCPCS: 36415; 36600; 71045; 71046; 74176; 76870; 76937; 77001; 80048; 80053; 80061; 80069; 80074; 80307; 81001; 82042; 82140; 82150; 82436; 82550; 82570; 82728; 82803; 82945; 83036; 83540; 83550; 83605; 83615; 83690; 83735; 83880; 84100; 84132; 84133; 84145; 84156; 84157; 84300; 84443; 84484; 85025; 85379; 85610; 85730; 86580; 86704; 87040; 87070; 87075; 87205; 87340; 87400; 87811; 89051; 93005; 93306; 93970; 94640; 96365; 96374; 96375; 99152; 99285; A9270; C1750; C1769; C1894; J0612; J0744; J1642; J1643; J1815; J1940; J2250; J2270; J2405; J2470; J3010; J3475; J3490; J7050; P9047; Q5106; S0077; J0737

== ENCOUNTER → 2024-05-06 | Outpatient (CLI) | payer MEDICAID, SELFPAY ==
--- NOTE | 2024-05-06 12:00 | XR_ITS ---
Examination: Ultrasound-guided paracentesis Abdominal sonogram limited Date and time of exam: May 06, 2024 1157 hours INDICATIONS: Cirrhosis, increasing abdominal distention this week Informed consent provided. A timeout was completed verifying correct patient, procedure, site, positioning, and special adequate movement if applicable. Technique: Multiple sonographic images of the abdomen have been obtained. Appropriate area for paracentesis was marked. Local anesthesia is obtained with 1% lidocaine. Yueh catheter is successfully introduced. Findings: Abdominal sonographic images demonstrate sufficient ascitic fluid for paracentesis. After placing the Yueh catheter, 10,450 cc of fluid were successfully removed. During and after completion of the procedure the patient appear in satisfactory and stable condition with no complications observed. Estimated blood loss 0 cc Impression: Abdominal ascites Successful ultrasound-guided paracentesis as described above
== END | disposition home or self-care (01) ==
PROVIDERS: PCP Student in an Organized Health Care Education/Training Program; Referring Provider Internal Medicine Nephrology; Visit Provider Internal Medicine Nephrology
DX: K70.31 Alcoholic cirrhosis of liver with ascites (principal)
CPT/HCPCS: 49083; C1729

== ENCOUNTER → 2024-10-05 | Outpatient (CLI) | payer MEDICARE, MEDICAID, SELFPAY ==
[2024-10-05 13:12] LABS: Basophils # (Auto) 0.1 Thou/mm3 (0.0-0.2); Basophils % (Auto) 1 % (0-2.5); Eosinophils # (Auto) 0.3 Thou/mm3 (0.0-0.5); Eosinophils % (Auto) 3 % (0-10); Hematocrit 38.4 % (41.0-53.0); Hemoglobin 13.1 g/dL (13.5-16.0); Immature Granulocytes Auto 0.03 Thou/mm3 (0.00-0.00); Lymphocytes # (Auto) 1.3 Thou/mm3 (1.0-4.8); Lymphocytes % (Auto) 16 % (10-50); Mean Corpuscular HGB Conc 34.1 g/dl (31.0-37.0); Mean Corpuscular Hemoglobin 32.5 pg (25.0-35.0); Mean Corpuscular Volume 95 fL (80-100); Monocytes # (Auto) 0.9 Thou/mm3 (0.0-0.8); Monocytes % (Auto) 10 % (0-12); Neutrophils # (Auto) 5.8 Thou/mm3 (1.8-7.7); Neutrophils % (Auto) 70 % (37-80); Nucleated Red Blood Cell # 0.00 Thou/mm3 (0.00-0.00); Nucleated Red Blood Cell % 0 /100 WBC (0); Platelet Count 154 Thou/mm3 (140-440); RDW Standard Deviation 50.3 fL (35.1-43.9); Red Blood Count 4.03 Miln/mm3 (4.50-5.90); White Blood Count 8.4 Thou/mm3 (3.8-10.6)
[2024-10-05 13:34] LABS: INR 1.0 (0.9-1.3); Partial Thromboplastin Time 29.4 Seconds (22.0-36.0); Prothrombin Time 11.4 Seconds (9.0-12.2)
== END | disposition home or self-care (01) ==
PROVIDERS: PCP Internal Medicine Nephrology; Referring Provider Internal Medicine Nephrology; Visit Provider Internal Medicine Nephrology
DX: K70.31 Alcoholic cirrhosis of liver with ascites (principal)
CPT/HCPCS: 36415; 85025; 85610; 85730

== ENCOUNTER → 2024-10-07 | Outpatient (CLI) | payer MEDICARE, MEDICAID, SELFPAY ==
--- NOTE | 2024-10-07 13:30 | XR_ITS ---
Examination: Abdomen sonogram, Limited Date and time of exam: October 07, 2024, 1340 hours INDICATIONS: Diagnosis malignant ascites, increasing distention this week Technique: Real-time gibbs scale transabdominal sonographic images of the upper abdomen obtained. Findings: Minimal ascitic fluid IMPRESSION: Minimal ascitic fluid
== END | disposition home or self-care (01) ==
LOC: SIRX 13:14
PROVIDERS: PCP Internal Medicine Nephrology; Referring Provider Internal Medicine Nephrology; Visit Provider Internal Medicine Nephrology
DX: R18.8 Other ascites (principal); Z53.8 Procedure and treatment not carried out for other reasons
CPT/HCPCS: 76705